=== PATIENT | male | born 1950 | race Caucasian/White ===

== ENCOUNTER 2016-02-17 13:05 | Emergency (ER) | payer OTHER, MEDICARE ==
[2016-02-17] VITALS (8 sets, daily range): BP systolic 135–164; BP diastolic 53–93; PULSE 40–94; TEMP 36.5; O2SAT 97–99; Ht 182.9 cm; Wt 83.0 kg
[~2016-02-17] VITALS: Ht 182.9 cm; Wt 83.0 kg
[~2016-02-17 13:05] MED LIST: ACET-1138 PO; ASCA500 PO; ASPI81TA28 PO; B-COCAP2 PO; CHOL1000 PO; CLB200 PO; CLC100 PO; IPRA1AER2 INH; LSN5 PO; MULT-506 PO; OMEG10007 PO; PRT40 PO; PRVHFAIN INH; RXC5 PO; SPRIN/30 INH; TPRSR25 PO
[2016-02-17] MEDS ORDERED: FENTANYL CITRATE INJ 50 MCG/1 ML 2 ML VIAL IV STA ×3 (13:18→14:55)
[2016-02-17] MEDS ORDERED: SODIUM CHLORIDE 0.9% 500ML 500 ML IV STA (13:19)
--- NOTE | 2016-02-17 14:37 | DIAGNOSTIC IMAGING REPORT ---
SINGLE VIEW CHEST CLINICAL HISTORY: Left hip deformity. Sedation. FINDINGS: An AP, portable, upright chest radiograph is compared to study dated 02/03/2016. The heart is enlarged and there is atherosclerotic calcification of the thoracic aorta. There is mild congestion of the central pulmonary vessels. Apical scarring is observed. Emphysema and chronic interstitial thickening is unchanged. Mild diffuse patchy airspace opacities are identified. No large pleural effusion or pneumothorax is seen. The skeletal structures are osteopenic. The bony thorax is grossly intact. IMPRESSION: 1. Cardiomegaly. There is congestion of the central pulmonary vessels. Correlate clinically for evidence of congestive failure. 2. There are mild diffuse patchy airspace opacities. Correlate clinically for evidence of an infectious or inflammatory pneumonitis versus mild interstitial edema. Electronically signed by: Jaylen Reeder M.D. 02/17/2016 2:35 PM Dictated Date/Time: 02/17/2016 2:32 PM
--- NOTE | 2016-02-17 14:41 | DIAGNOSTIC IMAGING REPORT ---
SINGLE VIEW LEFT HIP CLINICAL HISTORY: Left hip deformity. FINDINGS: An AP view of the left hip is compared to study dated 02/02/2016. The skeletal structures are osteopenic. No fracture is identified. A left hip arthroplasty is in place. There is superior dislocation of the femoral component of the arthroplasty. No periprosthetic lucency is identified. Sclerotic change is noted in the left sacroiliac joint. Overlying soft tissue edema is present in the thigh. IMPRESSION: 1. There is superior dislocation of the femoral component of the left hip arthroplasty with overlying soft tissue edema. 2. No fracture is seen. Electronically signed by: Jaylen Reeder M.D. 02/17/2016 2:39 PM Dictated Date/Time: 02/17/2016 2:37 PM
[2016-02-17] MEDS ORDERED: PROPOFOL IV EMULSION 10 MG/ML 20 ML VIAL IV ONE (14:53)
--- NOTE | 2016-02-17 15:35 | DIAGNOSTIC IMAGING REPORT ---
LEFT HIP UNILATERAL 2 VIEWS CLINICAL HISTORY: left hip dislocation COMPARISON: 02/17/2016 DISCUSSION: There is a total left hip arthroplasty. There is been interval reduction of the previously identified dislocation. There are no acute fractures. IMPRESSION: Interval reduction of the previously identified dislocation Electronically signed by: Berhane Esparza M.D. 02/17/2016 3:33 PM Dictated Date/Time: 02/17/2016 3:32 PM
[2016-02-17] MEDS ORDERED: FUROSEMIDE 40 MG/4 ML VIAL IV STA (16:00)
[2016-02-17 16:08] LABS: BASO % 0.1 %; BASO ABS # 0.02 K/uL (0-0.2); COMPLETE YES; EOS % 0.4 %; IG% 0.7 %; LYMPH % 7.4 %; LYMPH ABS # 1.09 K/uL (1.2-3.4); MEAN CELL VOLUME 91.6 fL (80-100); MEAN CORPUSCULAR HEMOGLOBIN 31.6 pg (25-34); MEAN CORPUSCULAR HGB CONC 34.4 g/dl (32-36); MEAN PLATELET VOLUME 10.1 fL (7.4-10.4); MONO % 5.3 %; NEUT % 86.1 %; PLATELET COUNT 355 K/uL (130-400); RED BLOOD COUNT 3.93 M/uL (4.7-6.1); WHITE BLOOD COUNT 14.64 K/uL (4.8-10.8)
--- NOTE | 2016-02-17 16:09 | EMERGENCY ROOM VISIT NOTE ---
ED Visit Note Procedural Sedation Indication hip dislocation Total time: 2867-1765, 17 minutes. Written consent was obtained after the risks and benefits were explained to the patient, including, but not limited to aspiration, allergic reaction, breathing difficulties, cardiac complications, vomiting, pain, event recall, bleeding, and /or infection. Pre-sedation examination and paperwork completed. The patient was on 100% oxygen via NRB prior to the procedure. Continuous end tidal CO2 monitoring, pulse oximetry, and cardiac monitoring were utilized. Suction, airway equipment, medications, respiratory equipment, and appropriate personnel were prepared prior to the initiation of the procedure. A time out was taken. Sedation was achieved utilizing a total of 150 mg of propofol After I observed the patient had reached the appropriate level of sedation the main procedure was performed without complication. Sedation was discontinued and the monitoring continued. The patient recovered quickly from the effects of the medication without complication or adverse event.
[2016-02-17 16:24] LABS: BUN/CREATININE RATIO 34.5 (10-20); CALCIUM 8.7 mg/dl (8.5-10.1); CREATININE 0.88 mg/dl (0.60-1.40); MAGNESIUM 2.2 mg/dl (1.8-2.4); POTASSIUM 4.2 mmol/L (3.5-5.1)
--- NOTE | 2016-02-17 17:58 | EMERGENCY ROOM VISIT NOTE ---
History Report prepared by Arnold: Rachel Ellis Under the Supervision of: Dr. Derek Vigil D.O. First contact with patient: 13:12 Chief Complaint: HIP PAIN Stated Complaint: HIP PAIN/ POSSIBLE DISLOCATION History of Present Illness The patient is a 65 year old male who presents to the Emergency Room with complaints of persistent left hip pain that began prior to arrival. He currently rates his discomfort as a 10/10 in severity. The patient states that he had a hip replacement done on 02/01. He states that this morning he was showering and he bent too far causing his left hip to dislocate. The patient states that his last food was about three hours ago. He denies hitting his head during the fall. The patient denies any numbness in his left hip, and only notes persistent pain. He states that the pain medications that he was given prior to coming to the emergency department did not alleviate his discomfort at all. Source of History: patient Onset: prior to arrival Position: other (left hip) Symptom Intensity: 10/10 Timing: other (persistent) Associated Symptoms: No numbness Note: Associated Symptoms: recent left hip replacement. Review of Systems See HPI for pertinent positives & negatives. A total of 10 systems reviewed and were otherwise negative. Past Medical & Surgical Medical Problems: (1) Avascular necrosis of bone of left hip (2) Chest pain (3) Diverticulitis (4) Rupture of bowel (5) Shortness of breath Surgical Problems: (1) Hx of cholecystectomy (2) Hx of rotator cuff surgery Family History Cancer Diabetes mellitus FH: heart disease Hypertension Stroke Social History Smoking Status: Unknown if Ever Smoked Alcohol Use: none Housing Status: lives with friends Occupation Status: employed Current/Historical Medications Scheduled Acetaminophen (Tylenol Extra Strength), 1,000 MG PO Q8H Albuterol (Ventolin Hfa), 2 PUFF INH Q4 Ascorbic Acid (Vitamin C), 1 TAB PO QAM Aspirin (Aspirin Ec), 81 MG PO BID Celecoxib (Celebrex), 200 MG PO BID Cholecalciferol (Vitamin D3), 1 TAB PO QAM Fish Oil ([place]-3), 1 CAP PO QAM Lisinopril (Lisinopril), 5 MG PO QAM Metoprolol Succinate (Metoprolol Succinate ER), 25 MG PO PM Multivitamin (Multivitamin), 1 TAB PO QAM Pantoprazole (Pantoprazole Sodium), 40 MG PO QAM Tiotropium Redig (Spiriva Handihaler), 1 PUFF INH QAM Vitamin B Cmplx/Vitc/Folic Ac (Nephrocaps), 1 CAP PO QAM Scheduled PRN Docusate Sodium (Docusate Sodium), 100 MG PO BID PRN for Constipation Ipratropium-Albuterol (Combivent Respimat), 1 PUFFS INH QID PRN for Wheezing Oxycodone HCl (Oxycodone HCl), 5-10 MG PO Q4H PRN for Pain Allergies Coded Allergies: No Known Allergies (Unverified , 02/02/16) Physical Exam Vital Signs Date Time Temp Pulse Resp B/P Pulse Ox O2 Delivery O2 Flow Rate FiO2 02/17/16 16:15 68 18 149/64 98 Room Air 02/17/16 15:47 73 18 145/67 97 Nasal Cannula 2.0 02/17/16 15:35 93 18 149/75 98 Nasal Cannula 2.0 02/17/16 15:29 89 18 135/79 98 Nasal Cannula 2.0 02/17/16 15:15 40 12 138/93 99 Non-Rebreather 10.0 02/17/16 15:10 96 02/17/16 15:05 94 18 147/62 02/17/16 15:05 60 146/53 98 Non-Rebreather 02/17/16 14:59 94 24 164/78 98 Nasal Cannula 2.0 02/17/16 13:51 95 Nasal Cannula 2.0 02/17/16 13:43 82 18 150/81 93 Room Air 02/17/16 13:08 36.5 83 18 168/98 97 Room Air Physical Exam GENERAL: Laying in bed, in moderate distress, holding left hip. EF of 35% HEAD: Normocephalic, atraumatic. EYE EXAM: normal conjunctiva. OROPHARYNX: no exudate, no erythema, lips, buccal mucosa, and tongue normal and mucous membranes are moist NECK: supple, no nuchal rigidity, no adenopathy, non-tender LUNGS: Clear to auscultation. Normal chest wall mechanics HEART: no murmurs, S1 normal and S2 normal ABDOMEN: Old abdominal incision in the umbilical region. abdomen soft, non- tender, normo-active bowel sounds, no masses, no rebound or guarding. BACK: Back is symmetrical on inspection and there is no deformity, no midline tenderness, no CVA tenderness. SKIN: no rashes and no bruising UPPER EXTREMITIES: upper extremities are grossly normal. PELVIS: Incisions are clean dry and intact, acute pain on palpation of left hip. DP 2/4, gross sensations intact. Able to planar and dorsiflex left foot. Medical Decision & Procedures ER Provider Diagnostic Interpretation: Xray results per the radiologist and my interpretation. Other results have been interpreted by the radiologist and reviewed by me. SINGLE VIEW CHEST CLINICAL HISTORY: Left hip deformity. Sedation. FINDINGS: An AP, portable, upright chest radiograph is compared to study dated 02/03/2016. The heart is enlarged and there is atherosclerotic calcification of the thoracic aorta. There is mild congestion of the central pulmonary vessels. Apical scarring is observed. Emphysema and chronic interstitial thickening is unchanged. Mild diffuse patchy airspace opacities are identified. No large pleural effusion or pneumothorax is seen. The skeletal structures are osteopenic. The bony thorax is grossly intact. IMPRESSION: 1. Cardiomegaly. There is congestion of the central pulmonary vessels. Correlate clinically for evidence of congestive failure. 2. There are mild diffuse patchy airspace opacities. Correlate clinically for evidence of an infectious or inflammatory pneumonitis versus mild interstitial edema. Electronically signed by: Jaylen Reeder M.D. 02/17/2016 2:35 PM Dictated Date/Time: 02/17/2016 2:32 PM SINGLE VIEW LEFT HIP CLINICAL HISTORY: Left hip deformity. FINDINGS: An AP view of the left hip is compared to study dated 02/02/2016. The skeletal structures are osteopenic. No fracture is identified. A left hip arthroplasty is in place. There is superior dislocation of the femoral component of the arthroplasty. No periprosthetic lucency is identified. Sclerotic change is noted in the left sacroiliac joint. Overlying soft tissue edema is present in the thigh. IMPRESSION: 1. There is superior dislocation of the femoral component of the left hip arthroplasty with overlying soft tissue edema. 2. No fracture is seen. Electronically signed by: Jaylen Reeder M.D. 02/17/2016 2:39 PM Dictated Date/Time: 02/17/2016 2:37 PM LEFT HIP UNILATERAL 2 VIEWS CLINICAL HISTORY: left hip dislocation COMPARISON: 02/17/2016 DISCUSSION: There is a total left hip arthroplasty. There is been interval reduction of the previously identified dislocation. There are no acute fractures. IMPRESSION: Interval reduction of the previously identified dislocation Electronically signed by: Berhane Esparza M.D. 02/17/2016 3:33 PM Dictated Date/Time: 02/17/2016 3:32 PM Laboratory Results 02/17/16 15:55 Red Blood Count 3.93, Mean Corpuscular Volume 91.6, Mean Corpuscular Hemoglobin 31.6, Mean Corpuscular Hemoglobin Concent 34.4, Mean Platelet Volume 10.1, Neutrophils (%) (Auto) 86.1, Lymphocytes (%) (Auto) 7.4, Monocytes (%) (Auto) 5.3, Eosinophils (%) (Auto) 0.4, Basophils (%) (Auto) 0.1, Neutrophils # (Auto) 12.60, Lymphocytes # (Auto) 1.09, Monocytes # (Auto) 0.77, Eosinophils # (Auto) 0.06, Basophils # (Auto) 0.02 02/17/16 15:55 Test 02/17/16 15:55 White Blood Count 14.64 K/uL (4.8-10.8) Red Blood Count 3.93 M/uL (4.7-6.1) Hemoglobin 12.4 g/dL (14.0-18.0) Hematocrit 36.0 % (42-52) Mean Corpuscular Volume 91.6 fL (80-100) Mean Corpuscular Hemoglobin 31.6 pg (25-34) Mean Corpuscular Hemoglobin Concent 34.4 g/dl (32-36) Platelet Count 355 K/uL (130-400) Mean Platelet Volume 10.1 fL (7.4-10.4) Neutrophils (%) (Auto) 86.1 % Lymphocytes (%) (Auto) 7.4 % Monocytes (%) (Auto) 5.3 % Eosinophils (%) (Auto) 0.4 % Basophils (%) (Auto) 0.1 % Neutrophils # (Auto) 12.60 K/uL (1.4-6.5) Lymphocytes # (Auto) 1.09 K/uL (1.2-3.4) Monocytes # (Auto) 0.77 K/uL (0.11-0.59) Eosinophils # (Auto) 0.06 K/uL (0-0.5) Basophils # (Auto) 0.02 K/uL (0-0.2) RDW Standard Deviation 50.8 fL (36.4-46.3) RDW Coefficient of Variation 15.1 % (11.5-14.5) Immature Granulocyte % (Auto) 0.7 % Immature Granulocyte # (Auto) 0.10 K/uL (0.00-0.02) Anion Gap 10.0 mmol/L (3-11) Est Creatinine Clear Calc Drug Dose 91.9 ml/min Estimated GFR () 104.5 Estimated GFR (Non- 90.1 BUN/Creatinine Ratio 34.5 (10-20) Calcium Level 8.7 mg/dl (8.5-10.1) Magnesium Level 2.2 mg/dl (1.8-2.4) Laboratory results per my review. Medications Administered Medications (Trade) Dose Ordered Sig/Zeferino Route Start Time Stop Time Status Last Admin Dose Admin Fentanyl Citrate 100 mcg 100 mcg NOW STAT IV 02/17/16 13:18 02/17/16 13:19 DC 02/17/16 13:21 100 MCG Sodium Chloride (Nss 500ml) 500 ml @ 999 mls/hr Q31M STAT IV 02/17/16 13:19 02/17/16 13:49 DC 02/17/16 13:23 999 MLS/HR Fentanyl Citrate (Fentanyl Inj) 50 mcg ONE STAT IV 02/17/16 13:36 02/17/16 13:38 DC 02/17/16 13:43 50 MCG Fentanyl Citrate (Fentanyl Inj) 100 mcg NOW STAT IV 02/17/16 14:55 02/17/16 14:56 DC 02/17/16 15:43 100 MCG Furosemide (Lasix Inj) 40 mg NOW STAT IV 02/17/16 16:00 02/17/16 16:01 DC 02/17/16 16:15 40 MG Procedure Hip dislocation reduction Indication: left hip dislocation Verbal consent obtained. Risks and benefits were explained with the usual customary discussion. A time out was taken. Neurovascular examination before the procedure revealed intact. The left hip prosthetic dislocation was reduced after discussion with Dr. Bo, Orthopedics. Patient was placed in semi- supine position, hip was flexed to 90 degrees with knee placed in popliteal fossa, gentle upward traction was applied. Hip was easily reduced without complication. Neurovascular examination after the procedure revealed intact and gross sensations. The patient had significant pain relief and tolerated the procedure well. ECG Indication: other (bigeminy) Rate (beats per minute): 96 Rhythm: sinus rhythm Findings: 1st degree AV block, LBBB, PVC (intermittent) ED Course ED COURSE: Vital signs were reviewed and showed hypertensive The patients medical record was reviewed The above diagnostic studies were performed and reviewed. ED treatments and interventions as stated above. 1314: The patient was evaluated in room C9. A complete history and physical examination was performed. 1318: Ordered Fentanyl Inj 100 mcg IV, Sodium Chloride 500 ml @ 999 mls/hr IV. 1336: I reevaluated the patient and he is requesting more pain medications, noting that the previous pain medications helped slightly. Ordered Fentanyl Citrate 50 mcg IV. 1355: I discussed the patients case with Ankush Baxter PA-C Orthopedics. He said call back once his x-ray reports are back. 1429: I rediscussed the patients case with Ankush Baxter Orthopedics. Going to come help with reduction of the hip. 1433: I reevaluated the patient and updated him on the plan. He is going to be moved to room A1 to have his hip reduced. 1437: I discussed the patients case with Dr. Bo, Orthopedics. He said that he can be here in an hour to an hour and a half. 1453: Ordered Propofol 200 mg IV. 1455: Ordered Fentanyl Citrate 100 mcg IV. 1459: The patient signed consent for the conscious sedation. 1503: The patient's left hip was reduced at this time. See my procedure note for further detail. See Dr. Kaye's note for note regarding the sedation. 1549: I reevaluated the patient at this time. 1557: I discussed the patients case with Dr. Diaz, Cardiology. He evaluated the patient during the patients last admission at the end of January. He knows the patient very well and states that with his heart failure and bigeminy , we should check is magnesium and potassium and if abnormal repeat. He also said to give the patient extra Lasix and increase his Lasix. 1600: Ordered Lasix Inj 40 mg IV. 1602: I reevaluated the patient at this time and he is resting. 1710: Upon reevaluation, the patient is resting comfortably.I discussed my findings with the patient and he understands and agrees with the treatment plan. Based on the patients age, coexisting illnesses, exam and lab findings the decision to treat as an outpatient was made. The patient remained stable while under my care. The patient appeared well at the time of discharge. Medical Decision Differential diagnosis: Etiologies such as fracture, dislocation, neurovascular compromise, compartment syndrome, soft tissue injury, as well as others were entertained. Patient is a 65-year-old male with a past medical history of recent left hip replacement and CHF who presents the ER for severe pain in his left hip. He notes that he bent down and felt pop in his left hip. On exam he is neurovascular intact. X-ray supports a clear dislocation. I discussed this with his surgeon Dr. Thomas and he recommended reduction if possible at this time or he will be down an hour and a half. Patient was given multiple doses of IV fentanyl. Patient was sedated following explained the risk and benefits of this by Dr. Kaye and I reduced his hip. He tolerated the procedure well. On the monitor he did go into a bigeminy for a short period of time. EKG she reports intermittent PVCs. I discussed this with his edger runner who he saw less than 2 weeks ago. Chest x-ray supports CHF and consequently we elected to give him a dose of IV Lasix. His mag and potassium were normal. He was discharged to follow-up and increase his Lasix over the next 2 days until he sees cardiology on Saturday. He will continue his hip precautions. He is instructed not drive, work, operate heavy machinery for the next 12 hours. Again the patient had no chest pain or shortness of breath. He tolerated the procedure well. He was discharged follow-up with cardiogenic PCP. Discussed with Pt concerning signs and symptoms to watch out for. Pt was instructed to follow up with their PCP and discussed with the patient their option to return to the ED at anytime for persistent or worsening symptoms. The appropriate anticipatory guidance and out-patient management, including indications for return to the emergency department, were explained at length to the patient and understood. Consults Time Called: 1325 Consulting Physician: Ankush Baxter PA-C - Orthopedics Returned Call: [phone] I discussed the patients case with Ankush Baxter PA-C Orthopedics. He said call back once his x-ray reports are back. Impression Primary Impression: Hip dislocation, left Additional Impression: CHF (congestive heart failure) Scribe Attestation The scribe's documentation has been prepared under my direction and personally reviewed by me in its entirety. I confirm that the note above accurately reflects all work, treatment, procedures, and medical decision making performed by me. Departure Information Dispostion Home / Self-Care Referrals (PCP) Forms HOME CARE DOCUMENTATION FORM, IMPORTANT VISIT INFORMATION, WORK / SCHOOL INSTRUCTIONS Patient Instructions A Signature Page, ED CHF General, ED Dislocation Hip Traumatic Redu, My [facility] Additional Instructions Please follow up with your primary care doctor or if you are a student [facility] with in the next 24 hours. Any worsening of your symptoms, please return to the ED immediately. Please increase your Lasix to 40 mg daily for the next 2 days until you've see cardiology on Saturday. Any chest pain or shortness of breath please return to the ER. Please do not drive, work, operate heavy machinery for the next 12 hours as you' re given narcotics for sedation. Please follow your previous discharge instructions from the hospital for range of motion.
[2016-02-26] MEDS ORDERED: TPRSR/50 PO (09:34)
[2016-02-29] MEDS ORDERED: CLB/200 PO (16:37)
[2016-02-29] MEDS ORDERED: FURO-85 PO (16:37)
[2016-02-29] MEDS ORDERED: METO50TA7 PO (16:37)
[2016-02-29] MEDS ORDERED: IPRA1AER2 INH (16:37)
[2016-02-29] MEDS ORDERED: [UNRECOGNIZED DRUG - CODE] PO (16:37)
[2016-02-29] MEDS ORDERED: CHOL1000 PO (16:37)
[2016-02-29] MEDS ORDERED: OXYC-609 PO (16:37)
[2016-03-01] MEDS ORDERED: LPT40 PO (14:33)
== END 2016-02-17 18:00 | disposition home or self-care (01) ==
LOC: EDBD 13:05 → C.EDC 13:06 → C.EDB 18:00
DX: T84.021A Dislocation of internal left hip prosthesis, initial encounter (principal); X50.1XXA Overexertion from prolonged static or awkward postures, initial encounter; Y92.012 Bathroom of single-family (private) house as the place of occurrence of the external cause; I49.3 Ventricular premature depolarization; I50.9 Heart failure, unspecified; K57.92 Diverticulitis of intestine, part unspecified, without perforation or abscess without bleeding; Z80.9 Family history of malignant neoplasm, unspecified; Z83.3 Family history of diabetes mellitus; Z82.49 Family history of ischemic heart disease and other diseases of the circulatory system

== ENCOUNTER → 2016-03-01 | Day surgery (SDC) | payer OTHER, MEDICARE ==
[~2016-03-01] VITALS: Ht 182.9 cm; Wt 68.0 kg
[~2016-03-01] MED LIST changes: +ASPIRIN 81 MG CHEW ONE; +CLB/200 PO; -CLB200 PO; +FENTANYL CITRATE INJ 50 MCG/1 ML 2 ML VIAL ONE; +FURO-85 PO; +HEPARIN SOD (PORCINE) 1000 UNIT/ML 10 ML VIAL ONE; +LPT40 PO; +METO50TA7 PO; +MIDAZOLAM HCL 1 MG/ML 2ML VIAL ONE; -MULT-506 PO; +NITROGLYCERIN/D5W 100MCG/ML 20ML SYR ONE; +NiCARDipine HCL INJ 2.5 MG/ML 10 ML AMP ONE; +OXYC-609 PO; -RXC5 PO; -TPRSR25 PO; +[UNRECOGNIZED DRUG - CODE] PO
[2016-03-01 08:45] VITALS: Ht 182.9 cm; Wt 68.0 kg
[2016-03-01 09:12] VITALS: BP 127/57; PULSE 79; TEMP 36.7; O2SAT 99
[2016-03-01 14:22] LABS: ISTAT ARTERIAL BLOOD GAS HCO3 19 meq/L (19-24); ISTAT ARTERIAL BLOOD GAS PCO2 31 mmHg (35-46); ISTAT ARTERIAL BLOOD GAS PO2 90 mmHg (80-95); ISTAT ARTERIAL BLOOD GAS pH 7.41 (7.35-7.45); ISTAT CARBON DIOXIDE 20 mEq/l (24-31)
[2016-03-01 14:22] LABS: ISTAT ARTERIAL BLOOD GAS HCO3 21 meq/L (19-24); ISTAT ARTERIAL BLOOD GAS PCO2 39 mmHg (35-46); ISTAT ARTERIAL BLOOD GAS PO2 38 mmHg (80-95); ISTAT ARTERIAL BLOOD GAS pH 7.35 (7.35-7.45); ISTAT CARBON DIOXIDE 23 mEq/l (24-31)
--- NOTE | 2016-03-01 14:28 | Procedure Note ---
Pre-Mod Sedation Assessment General Date of Moderate Sedation: Mar 01, 2016. Vital Signs: Vital Signs Past 12 Hours Date Time Temp Pulse Resp B/P Pulse Ox O2 Delivery O2 Flow Rate FiO2 03/01/16 14:20 76 18 138/79 Room Air 03/01/16 14:15 Room Air 03/01/16 14:10 71 16 135/84 100 Room Air 03/01/16 09:12 36.7 79 18 127/57 99 Room Air Review Cardiovascular: regular rate, rhythm, no edema, no gallop Abdomen: normal bowel sounds, non tender, soft Lungs: chest non-tender, lungs clear, normal breath sounds Airway Class: II Pre-Sedation Airway Assessment Oral Cavity: Dentures Able to Visualize Vocal Cords: No Short Thick Neck: No Hx of Sleep Apnea: No Smoking Status: Current Some Day Smoker Mallampati Classification: Class III ASA Classification: Class III Procedure Planning Contraindications-for Mod Sed: None Yes Notes The planned sedation has been discussed with the patient and consent obtained. I have identified the patient, determined the appropriateness of sedation and have assessed the patient immediately prior to the procedure. All medicine(s) and interventions are by my order.
--- NOTE | 2016-03-01 14:29 | Procedure Note ---
Post-Mod Sedation Assessment General Date of Moderate Sedation Mar 01, 2016. Vital Signs: Vital Signs Past 12 Hours Date Time Temp Pulse Resp B/P Pulse Ox O2 Delivery O2 Flow Rate FiO2 03/01/16 14:20 76 18 138/79 Room Air 03/01/16 14:15 Room Air 03/01/16 14:10 71 16 135/84 100 Room Air 03/01/16 09:12 36.7 79 18 127/57 99 Room Air Review - Discharge Criteria Vital Signs Stable: Yes Alert/Oriented/Conversant: Yes Returned to Baseline Mental St: Yes Nausea Absent/Minimal: Yes Pain/Discomfort/Absent/Minimal: Yes Normal/Baseline Respirations: Yes Active Bleeding?: No Pt Received D/C Instructions: N/A Prescriptions Given: None Specific Proced. D/C Criteria Distal Pulses Present (Cardiac: Yes Groin site assessed-Card Cath: Yes Voided Prior To Discharge: N/A Discharged Patients Adult Escort/Transportation: Yes
--- NOTE | 2016-03-01 14:38 | Discharge Instructions ---
Discharge Instructions Procedure Procedure Date: Mar 01, 2016. Reason for Visit: *Dr James Caicedo To Do* Abnormal Chest Pain. Discharge Discharge Date: Mar 01, 2016. Discharge Diagnosis: Ischemic cardiomyopathy Last Recorded Wt (Kilograms): 68 Anesthesia Post Anesthesia Instructions: With moderate Sedation: * Do not drive today. * Do not make important decisions or sign legal documents today. * Call surgeon for: 1. Temperature elevations greater than 101 degrees F. 2. Uncontrollable pain. 3. Excessive bleeding. 4. Persistent nausea and vomiting. 5. Medication intolerance (nausea, vomiting or rash). * For nausea and vomiting use only clear liquids such as: tea, soda, bouillon until nausea subsides, then gradually increase diet as tolerated. * If you have any concerns or questions, call your surgeon's office. If physician is unavailable and it is an emergency, call 911 or go to the nearest emergency room. Instructions Activity Recommendations: limitations as noted below Recommended Home Diet: resume previous diet, low cholesterol Allergies: Coded Allergies: No Known Allergies (Unverified , 02/26/16) Follow Up Additional Instructions: ACTIVITY RECOMMENDATIONS: It is common to feel weak and fatigue for a few days. * Do not drive or operate any motorized equipment for the next day. * Limit stair usage (2 or 3 trips a day only) for the next 2 days. * Do not lift anything heavier than 10 pounds for the next three days. * Do not engage in vigorous exercise or any sports for the next five days. * You may shower the day after your procedure, but do not immerse the area for three days. Cleanse the site gently with soap and water. SPECIAL CARE INSTRUCTIONS: * You may replace the pressure dressing or band-aid the morning after the procedure. * After your procedure, it is normal to have a small bruise or small lump at the site. Examine your site daily for any change in the bruise or lump, redness, swelling, drainage or numbness. Notify your doctor if any change. BLEEDING: * If there is a small amount of bleeding at the site, lie down and apply firm pressure with a clean cloth for ten minutes. When the bleeding stops, lie quietly keeping the procedure limb straight for six hours. Notify your doctor as soon as possible. * If the bleeding does not stop after ten minutes or if there is a large amount of bleeding or spurting, call 911 immediately. Continue to lie down and hold firm pressure until help arrives. SKIN IRRITATION: * You may experience some redness and/or swelling in the area where radiation was administered. If any skin irritation occurs, please contact your family physician. FOLLOW UP VISIT: Keep any scheduled doctor appointments. Follow-up with: Dr. Fischer and CT surgery at [facility] Recommendations: Call your doctor if: * Temperature above 101 degrees * Pain not relieved by pain medicine ordered * There is increased drainage or redness from any incision * You have any unanswered questions or concerns. Your Doctors Instructions noted above were prepared by provider Amor Caicedo. Patient Signature Section: Patient Instructions Signature Page Wesley Patel Patient (or Guardian) Signature/Date: I have read and understand the instructions given to me by my caregivers. Caregiver/RN/Doctor Signature/Date: The above-named patient and/or guardian has received patient instructions on this date. + Original Patient Signature Page (only) stays with chart. Please make copy for patient.
--- NOTE | 2016-03-01 15:09 | Cardiac Catheterization ---
Procedure Note Procedure Date Mar 01, 2016. Pre-Procedure Diagnosis Cardiomyopathy AUC Score 7 Post-Procedure Diagnosis Severe CAD, Normal Intracardiac Pressures Procedure(s) Performed Coronary Angiography, Left Heart Cath, Right Heart Cath Signs And Displays Sales Representative Dr. Caicedo Manager Database Administration(s) Joan Estimated Blood Loss 32 Medication(s) Fentanyl, Heparin, Nitroglycerin, Versed, Lidocaine 1% Summary of Findings Indication: Cardiomyopathy Access: 6Fr Right Brachial vein, 6Fr Slender Right radial artery Catheters: 6Fr swan, Roma, JL3.5, Pigtail Findings: LM - Mildly calcified with ostial 60% stenosis with pressure dampening with catheter engagement LAD - Moderate sized vessel, mild proximal disease, 90% focal stenosis after take-off of large 2nd diagonal, distal LAD small with luminal irregularities to the apex. Small 1st diagonal with 70-80% stenosis. Large 2nd diagonal with mild luminal irregularities. Circumflex - Moderate sized vessel, greatest caliber OM (OM2) with 90% ostial stenosis. Remainder of OMs with luminal irregularities. RCA - Dominant, 50% ostial stenosis with pressure dampening with catheter engagement. Mid RCA mildly calcified with 50-60% diffuse disease. Mild distal RCA disease. Ostial PDA 50-60% focal stenosis RA 4 RV 32/5 PCW 13 PA 32/10/ Ao LVEDP - 20 RAFAELA/CI: 4.8/2.6 TCO/CI: 6.5/3.4 PaSat 70 Arterial Closure: TR Band Summary: 1. Severe multivessel coronary artery disease with ostial left main involvement - 60% ostial left main - 90% mid LAD - 90% ostial OM2 - 50-60% ostial, mid RCA, ostial PDA 2. Normal cardiac output and intracardiac filling pressures. Recommendations: CT surgery evaluation for CABG To follow-up with his sap technical architect Dr. Fischer tomorrow Continue ASA/Beta-pratima and JEREMY Start high dose statin. Hemodynamics Rest Ao: Final Ao: 146/72/102 LV: 139/20 Recommendations CABG Specimens None Radiation Exposure (mGy) 463 Contrast (mls) 75 Fluids (cc crystalloids) 142 Drains none Anesthesia moderate Procedural Complication(s) None Disposition Skin Grader Holding/Recovery ACC Data Cardiac Status Clinical evaluation leading to the procedure CAD Presntation: No Sxs, no angina Anginal Classification: No symptoms Heart Failure: No, NYHA Class: CCS III Cardiogenic Shock w/in 24Hrs: No Cardiac Arrest w/in 24Hrs: No Imaging studies past 6 months: Yes Stress studies past 6 months: No Standard Exercise Stress Test: No Stress Echocardiogram: No Stress Testing w/SPECT MPI: No Cardiac CTA: No Coronary Anatomy Dominant: Right Left Main (% Stenosis): Ostial (60) LAD (% Stenosis): Mid (90) OM2 (% Stenosis): Ostial (90) RCA (% Stenosis): Ostial (50), Mid (50) R PDA (% Stenosis): Ostial (50) Diagnostic Physician's Name: James Caicedo MD Status: Elective Closure Device Percutaneous Entry Location: Radial Closure Device: Radial Band Recommendations: CABG Intraprocedure Events Significant Dissection: No Perforation: No
[2016-03-01 16:30] VITALS: BP 128/62; PULSE 83; O2SAT 96
== END | disposition home or self-care (01) ==
LOC: C.CATH 08:31
PROVIDERS: ATTEND Internal Medicine Interventional Cardiology
DX: I42.8 Other cardiomyopathies (principal); I44.7 Left bundle-branch block, unspecified; E11.9 Type 2 diabetes mellitus without complications; J43.9 Emphysema, unspecified; Z96.649 Presence of unspecified artificial hip joint; Z98.890 Other specified postprocedural states

== ENCOUNTER → 2016-11-26 | Outpatient (CLI) | payer OTHER, MEDICARE ==
[~2016-11-26] MED LIST changes: -ASPIRIN 81 MG CHEW ONE; -CLB/200 PO; -CLC100 PO; -FENTANYL CITRATE INJ 50 MCG/1 ML 2 ML VIAL ONE; -HEPARIN SOD (PORCINE) 1000 UNIT/ML 10 ML VIAL ONE; -MIDAZOLAM HCL 1 MG/ML 2ML VIAL ONE; -NITROGLYCERIN/D5W 100MCG/ML 20ML SYR ONE; -NiCARDipine HCL INJ 2.5 MG/ML 10 ML AMP ONE
--- NOTE | 2016-11-26 08:56 | DIAGNOSTIC IMAGING REPORT ---
ULTRASOUND EXAM AAA SCREEN HISTORY: Abdominal aortic aneurysm SCREENING COMPARISON STUDY: None. FINDINGS: Normal caliber abdominal aorta measuring up to 1.9 cm at the mid aspect. Bilateral common iliac arteries are also normal in caliber. Mild calcified plaque. IMPRESSION: Normal caliber abdominal aorta. Electronically signed by: Umberto Miguel M.D. 11/26/2016 8:54 AM Dictated Date/Time: 11/26/2016 8:53 AM
== END | disposition home or self-care (01) ==
LOC: C.ULTRBC 08:03
PROVIDERS: ATTEND Family Medicine
DX: Z13.6 Encounter for screening for cardiovascular disorders (principal)

== ENCOUNTER → 2016-11-28 | Outpatient (CLI) | payer OTHER, MEDICARE ==
--- NOTE | 2016-11-28 14:20 | DIAGNOSTIC IMAGING REPORT ---
CT LUNG SCREENING, LOW DOSE WITH COMPUTER-AIDED DETECTION (CAD) CLINICAL HISTORY: Current smoker. Asymptomatic. Screening CT. COMPARISON STUDY: Chest radiograph February 17, [address] of the abdomen and pelvis April 09, 2015. CT DOSE: 88.70 mGy.cm TECHNIQUE: Low-dose helical CT was acquired without intravenous contrast from lung apices to bases and reconstructed at 2.5 mm every 2 mm. CAD was utilized for this study. A dose lowering technique was utilized adhering to the principles of ALARA. FINDINGS: No enlarged axillary, mediastinal or hilar lymph nodes are present. The heart is mildly enlarged. There is extensive coronary artery calcification. There are median sternotomy wires and clips from bypass grafting. No suspicious osseous lesions are identified within the bony thorax. Visualized portions of the upper abdomen are unremarkable. Moderate emphysema is present. No consolidation is identified. There is no pneumothorax or pleural effusion. Multiple small pulmonary nodules are noted. Note is made of a 7 mm solid right middle lobe nodule shown image 202 of 311. A 5 mm left lower lobe nodule is noted on image 252. A 6 mm right lower lobe subpleural nodule is noted on image 232. Numerous smaller nodules are also present. IMPRESSION: 1. Multiple solid pulmonary nodules, the largest of which is a 7 mm right middle lobe nodule. These nodules are probably benign but indeterminate. A follow-up chest CT in 6 months is recommended to ensure stability. 2. Moderate emphysema. 3. No acute intrathoracic findings. Nodule 1 Category: 3 Nodule 1 Status: Baseline Nodule 1 Description: Solid Nodule 1 Lesion ID: 6 Nodule 1 Slice Number: 55 Nodule 1 Volume (mm3): 175 Nodule 1 Major [place] mm: 6.9 Nodule 1 Minor [place] mm: 6.9 Nodule 2 Category: 3 Nodule 2 Status: Baseline Nodule 2 Description: Solid Nodule 2 Lesion ID: 2 Nodule 2 Slice Number: 41 Nodule 2 Volume (mm3): 117 Nodule 2 Major [place] mm: 8.1 Nodule 2 Minor [place] mm: 5.0 Nodule 3 Category: 2 Nodule 3 Status: Baseline Nodule 3 Description: Solid Nodule 3 Lesion ID: 1 Nodule 3 Slice Number: 30 Nodule 3 Volume (mm3): 29 Nodule 3 Major [place] mm: 3.3 Nodule 3 Minor [place] mm: 3.0 CAD FINDINGS: Overall Lung RADS Category: 3 Lung RADS Management Recommendation: Lung-RADS 3: Return for a diagnostic chest CT without contrast in 6 months. Lung RADS Follow Up Date: 2017-05-29 Lung RADS Nodule ID: 6 Electronically signed by: Americo Bill M.D. 11/28/2016 2:19 PM Dictated Date/Time: 11/28/2016 1:39 PM
== END | disposition home or self-care (01) ==
LOC: C.CTS 13:26
PROVIDERS: ATTEND Family Medicine
DX: J43.9 Emphysema, unspecified (principal); R91.8 Other nonspecific abnormal finding of lung field

== ENCOUNTER → 2017-06-17 | Outpatient (CLI) | payer OTHER, MEDICARE ==
[~2017-06-17] MED LIST changes: -ACET-1138 PO; -ASCA500 PO; +ASCO500T3 PO; +ASPCH81X PO; -ASPI81TA28 PO; -B-COCAP2 PO; +B-COTAB18 PO; -FURO-85 PO; +GLUCTAB7 PO; -IPRA1AER2 INH; +LPT/40 PO; -LPT40 PO; -LSN5 PO; +METO-217 PO; -METO50TA7 PO; +MULT-506 PO; -OXYC-609 PO; -PRT40 PO; -PRVHFAIN INH; -SPRIN/30 INH; -[UNRECOGNIZED DRUG - CODE] PO
--- NOTE | 2017-06-17 10:56 | DIAGNOSTIC IMAGING REPORT ---
ADDENDUM (CHEST) THORAX WITHOUT WITH COMPUTER-AIDED DETECTION (CAD) CLINICAL HISTORY: 66 years-old Male presenting with lung nodule, follow-up, history of smoking. CT DOSE (mGy.cm): The estimated cumulative dose is 446.04 mGy.cm. TECHNIQUE: Multidetector CT imaging of the chest was performed without the use of intravenous contrast. IV contrast: None. A dose lowering technique was used consistent with the principles of ALARA (as low as reasonably achievable). Additional postprocessing was performed on a separate [employer] workstation by the radiologist for computer-aided detection and 3-D volumetric segmentation of pulmonary nodules. COMPARISON: None. FINDINGS: Lockstitch Coat Joiner topogram: Median sternotomy wires. On soft tissue windows, normal thyroid. Bilateral gynecomastia suggested. No axillary, supraclavicular, or mediastinal lymphadenopathy. Evaluation of the erin limited without intravenous contrast. Atherosclerosis of the aorta. Normal heart size. Coronary artery calcification. Postsurgical changes of median sternotomy with coronary artery bypass grafting. Patency of the graft vessels cannot be assessed without contrast. No pericardial or pleural effusion. Cholecystectomy clips. Subcentimeter hypodensity in the liver likely hepatic cyst or hamartoma though indeterminate. Normal liver density. On lung windows, trace centrilobular and paraseptal emphysematous changes. Previously noted solid pulmonary nodules are unchanged including a 6 mm right middle lobe nodule (series 4 image 207), 6 mm subpleural right lower lobe nodule (series 4 image 228) disease, and 3 mm left lower lobe nodule (series 4 image 251). Solid elongated 5 mm nodule in the lingula (series 4 image 22), unchanged. No other nodule. Debris noted in the lower trachea. Mild bronchial wall thickening. On bone windows, normal osseous structures. CAD FINDINGS: Nodule 1 Category: 2 Nodule 1 Status: Growing Nodule 1 Description: Solid Nodule 1 Lesion ID: 2 Nodule 1 Slice Number: 119 Nodule 1 Volume (mm3): 146 Nodule 1 Major [place] mm: 11.9 Nodule 1 Minor [place] mm: 4.3 Nodule 2 Category: 2 Nodule 2 Status: Growing Nodule 2 Description: Solid Nodule 2 Lesion ID: 1 Nodule 2 Slice Number: 96 Nodule 2 Volume (mm3): 39 Nodule 2 Major [place] mm: 4.0 Nodule 2 Minor [place] mm: 2.9 Nodule 3 Category: 2 Nodule 3 Status: Shrinking Nodule 3 Description: Solid Nodule 3 Lesion ID: 6 Nodule 3 Slice Number: 140 Nodule 3 Volume (mm3): 35 Nodule 3 Major [place] mm: 7.6 Nodule 3 Minor [place] mm: 4.3 Nodule 4 Category: 2 Nodule 4 Status: Growing Nodule 4 Description: Solid Nodule 4 Lesion ID: 2 Nodule 4 Slice Number: 119 Nodule 4 Volume (mm3): 146 Nodule 4 Major [place] mm: 11.9 Nodule 4 Minor [place] mm: 4.3 Overall Lung RADS Category: 2 Lung RADS Management Recommendation: Continue annual lung cancer screening. Lung RADS Follow Up Date: 2018-06-17 Lung RADS Nodule ID: 2 IMPRESSION: 1. Stable multiple bilateral solid pulmonary nodules measuring up to 6 mm. Continue annual lung cancer screening. 2. Trace emphysema bronchial wall thickening, likely smoking related lung injury. Electronically signed by: Jerrod Valverde M.D. 06/18/2017 1:46 PM Dictated Date/Time: 06/18/2017 11:05 AM ORIGINAL REPORT (CHEST) THORAX WITHOUT CLINICAL HISTORY: 66 years-old Male presenting with lung nodule, 6 month follow-up. TECHNIQUE: Multidetector CT imaging of the chest was performed without the use of intravenous contrast. IV contrast: None. A dose lowering technique was used consistent with the principles of ALARA (as low as reasonably achievable). COMPARISON: 11/28/2016. CT DOSE (mGy.cm): The estimated cumulative dose is 446.04 mGy.cm. FINDINGS: Lockstitch Coat Joiner topogram: Median sternotomy wires. On soft tissue windows, normal thyroid. Bilateral gynecomastia suggested. No axillary, supraclavicular, or mediastinal lymphadenopathy. Evaluation of the erin limited without intravenous contrast. Atherosclerosis of the aorta. Normal heart size. Coronary artery calcification. Postsurgical changes of median sternotomy with coronary artery bypass grafting. Patency of the graft vessels cannot be assessed without contrast. No pericardial or pleural effusion. Cholecystectomy clips. Subcentimeter hypodensity in the liver likely hepatic cyst or hamartoma though indeterminate. Normal liver density. On lung windows, trace centrilobular and paraseptal emphysematous changes. Previously noted solid pulmonary nodules are unchanged including a 6 mm right middle lobe nodule (series 4 image 207), 6 mm subpleural right lower lobe nodule (series 4 image 228) disease, and 3 mm left lower lobe nodule (series 4 image 251). Solid elongated 5 mm nodule in the lingula (series 4 image 22), unchanged. No other nodule. Debris noted in the lower trachea. Mild bronchial wall thickening. On bone windows, normal osseous structures. IMPRESSION: 1. Stable multiple bilateral solid pulmonary nodules measuring up to 6 mm. Follow-up per [employer] 2017 recommendations. 2. Trace emphysema bronchial wall thickening, likely smoking related lung injury. Please refer to below summary of Fleischner Society 2017 recommendations for follow-up of incidental CT nodules (H Palmer et al. Guidelines for management of incidental pulmonary nodules detected on CT images: From the Fleischner Society 2017. Radiology 2017; 284: 228-243.) SOLID NODULES Single nodule; size < 6 mm * Low risk patients: No routine follow-up * High risk patients: Optional CT at 12 months Single nodule; size 6-8 mm * Low risk patients: CT at 6-12 months, then consider CT at 18-24 months * High risk patients: CT at 6-12 months, then at 18-24 months Single nodule; size > 8 mm * Either low or high risk patients: Considered CT at 3 months, PET/CT, or tissue sampling Multiple nodules; size < 6 mm * Low risk patients: No routine follow up * High risk patients: Optional CT at 12 months Multiple nodules; size 6-8 mm * Low risk patients: CT at 3-6 months, then consider CT at 18-24 months * High risk patients: CT at 3-6 months, then at 18-24 months Multiple nodules; size > 8 mm * Low risk patients: CT at 3-6 months, then consider at 18-24 months * High risk patients: CT at 3-6 months, then at 18-24 months SUBSOLID NODULES Single ground-glass nodule * Nodule size < 6 mm: No routine follow-up * Nodule size > or = 6 mm: CT at 6-12 months to confirm persistence, then CT every 2 years until 5 years Single part-solid nodule * Nodule size < 6 mm: No routine follow-up * Nodules size > or = 6 mm: CT at 3-6 months to confirm persistence. If unchanged and solid component remains < 6 mm, annual CT should be performed for 5 years Multiple nodules * Nodule size < 6 mm: CT at 3-6 months. If stable, consider CT at 2 and 4 years. * Nodules size > or = 6 mm: CT at 3-6 months. Subsequent management based on the most suspicious nodule(s) NOTE: 1) These guidelines apply to incidental nodules. These guidelines do NOT apply to patients younger than 35 years, immunocompromised patients, or patients with cancer. 2) Risk categories: * Low risk patients: Minimal or absent history of smoking and/or other known risk factors * High risk patients: History of smoking, exposure to other carcinogens, emphysema, fibrosis, upper lobe location, family history of lung cancer, etc. 3) If a nodule up to 8 mm is partly solid or is ground glass, further follow-up is required after 24 months to exclude possible slow growing adenocarcinoma. Electronically signed by: Jerrod Valverde M.D. 06/17/2017 10:54 AM Dictated Date/Time: 06/17/2017 10:48 AM
== END | disposition home or self-care (01) ==
LOC: C.CTS 10:27
PROVIDERS: ATTEND Family Medicine
DX: R91.8 Other nonspecific abnormal finding of lung field (principal); J43.9 Emphysema, unspecified

== ENCOUNTER 2023-02-25 11:13 | Inpatient (IN) ==
--- NOTE | 2023-02-25 12:13 | XRay Report ---
XR chest 1V not portable CLINICAL HISTORY: Chest pain, nonspecific TECHNIQUE: Single frontal radiograph of the chest was obtained. Comparison: Comparison is made to chest radiograph 02/17/2016 FINDINGS: Median sternotomy wires are unchanged. Cardiomegaly is noted. The aortic arch is calcified. Mild bila teral atelectasis is seen. Small right and moderate left pleural effusions are seen. IMPRESSION: Small right and moderate left pleural effusions are seen. ACT 112: Negative or not required by law. Electronically signed by: Obey Ruiz M.D. 02/25/2023 12:11 PM
[2023-02-25 12:19] LABS: Basophils # (auto) 0.03 K/uL (0.00-0.20); Basophils % (auto) 0.2 %; Eosinophils # (auto) 0.08 K/uL (0.00-0.50); Eosinophils % (auto) 0.7 %; Hematocrit (blood only) 42.5 % (42.0-52.0); Hemoglobin 14.1 g/dl (14.0-18.0); Immature Granulocytes # (auto) 0.05 K/uL (0.01-0.20); Immature Granulocytes % (auto) 0.4 %; Lymphocytes # (auto) 1.21 K/uL (1.20-3.40); Mean Corpuscular Hemoglobin 30.8 pg (25.0-34.0); Mean Corpuscular Hgb Conc 33.2 g/dL (32.0-36.0); Mean Corpuscular Volume 92.8 fL (80.0-100.0); Mean Platelet Volume 11.1 fL (9.4-12.4); Monocytes % (auto) 8.3 %; Neutrophils # (auto) 9.68 K/uL (1.40-6.50); Neutrophils % (auto) 80.4 %; Platelet Count 330 K/uL (130-400); RDW Coefficient of Variation 14.1 % (11.5-14.5); RDW Standard Deviation 48.1 fL (36.4-46.3); Red Blood Count 4.58 M/uL (4.70-6.10); White Blood Count 12.05 K/ul (4.8-10.8)
[2023-02-25 12:28] LABS: Alanine Aminotransferase 23 U/L (7-52); Albumin Globulin Ratio 1.3 (0.9-2); Albumin Level 4.2 gm/dl (3.4-5.0); Alkaline Phosphatase 106 U/L (34-104); Anion Gap 10 (3-11); Aspartate Aminotransferase 22 U/L (13-39); BUN Creatinine Ratio 26.8 (10-20); Bilirubin,Total 0.3 mg/dl (0.2-1.0); Blood Urea Nitrogen 22 mg/dl (6-23); Calcium 9.6 mg/dl (8.6-10.3); Carbon Dioxide 19 mmol/L (21-32); Chloride 107 mmol/L (98-107); Est GFR (African American) 102.4 ml/min; Est GFR (Non-African American) 88.3 ml/min; Globulin 3.2 gm/dl (2.5-4.0); Glucose 99 mg/dl (70-99(Fasting)); Potassium 4.1 mmol/L (3.5-5.1); Sodium 136 mmol/L (136-145); Total Protein 7.4 gm/dl (6.0-8.3)
[2023-02-25 12:39] LABS: INR 0.9 (0.9-1.1); Partial Thromboplastin Time 28 Seconds (21-31); Prothrombin Time 10.4 Seconds (9.0-12.0)
[2023-02-25 12:46] LABS: Influenza A virus by PCR Negative (Neg); Influenza B virus by PCR Negative (Neg); RSV by PCR Negative (Neg); SARS CoV2 RNA(COVID-19) Ceph NEGATIVE (Negative)
--- NOTE | 2023-02-25 12:58 | Emergency Department Note ---
Impression & Plan CHIU (dyspnea on exertion), CHF (congestive heart failure), Elevated troponin, History of coronary artery disease ED Provider Note NAME: ASHLEE CARTER AGE: 72 SEX: M : 1950 ARRIVES VIA: Ambulance INFORMANT: [Patient] ED PROVIDER(S): [Jaylen Randolph MD] CHIEF COMPLAINT: Shortness of breath HISTORY OF PRESENT ILLNESS: The patient is a 72-year-old male who has had a week of increasing dyspnea on exertion. He does note a slight cough that is occasionally productive. No chest pain. No fever although he has had a few sweats. He has not noticed leg edema. The patient was not around anybody sick or ill. He states he has a history of cardiac bypass x 4 in [address] He [address] Fischer from cardiology. Patient cannot recall ever having heart failure or pulmonary edema. He is not on diuretics. PMHx/PSHx/Social Hx: See Below PHYSICAL EXAM: GENERAL: Patient is in no acute distress. HEENT: No acute trauma, normocephalic atraumatic, mucous membranes moist, no nasal congestion. NECK: No stridor, no adenopathy, no meningismus, trachea is midline. LUNGS: Diminished breath sounds, especially on the left. No wheezing. Moist cough noted. HEART: Rhythm seems regular with an occasional extra beat. No obvious murmur. Regular rate ABDOMEN: Soft, nontender, no peritonitis. EXTREMITIES: No cyanosis, full range of motion of all the joints without pain or difficulty. NEUROLOGIC: Oriented x 3, no acute motor or sensory deficits, no focal weakness. SKIN: No jaundice, no diaphoresis. DIFFERENTIAL DIAGNOSIS: Bronchitis or pneumonia, viral illness, cardiac ischemia, anemia, CHF, PE, among others. EMERGENCY DEPARTMENT PROCEDURES: MEDICAL DECISION MAKING: There is a mild leukocytosis, this could be consistent with infection or the stress of his dyspnea and presentation. There is a normal hemoglobin and platelet count. No coagulopathy. No renal failure or significant electrolyte abnormality. No concerning liver enzyme elevation. COVID, RSV and influenza test were negative. Chest x-ray shows some bilateral pleural effusions. No pneumonia. BNP was elevated consistent with heart failure. ECG shows a sinus rhythm with a left bundle branch block. No obvious concerning ST elevation. Cardiac enzyme testing x 1 is slightly elevated, this troponin elevation could be secondary to cardiac injury or potentially mismatch from his dyspnea. A chest CT was done, CHF was seen. Pleural effusions were noted. There was no pneumonia. No PE. The patient was given IV Lasix, 40 mg. The patient presents with dyspnea on exertion. He has known coronary artery disease. He appears to have effusions and heart failure by workup. Certainly, fluid overload could be causing his dyspnea. Given the elevated troponin, given the complaints of chest discomfort and the history of heart disease, I do think hospitalization would be warranted. I spoke with the patient and case management, the on-call hospitalist was consulted. Prior/Outside records/notes reviewed: EMS notes today discussing his presentation and care during transport. ECG per my interpretation: Indication was shortness of breath. The ECG shows what appears to be a sinus rhythm with an occasional PVC. There is a left bundle branch block. The rate is 97. There is no concerning ST elevation. The elevated ST segments in the anterior leads seem secondary to the large QRS complex. The QTc is 518. No old ECGs to use for comparison. Continuous Cardiac Monitoring per my interpretation: An order was placed for continuous cardiac monitoring. The monitor shows a rate of 98 with normal sinus rhythm. Imaging/x-ray results per my interpretation: Chest x-ray does not show pneumonia or pneumothorax. There are bilateral pleural effusions, worse on the left. Chronic Medical/Social conditions affecting care: Advanced age. History of coronary artery disease surgery. Care/Management discussed with: Case management, the on-call hospitalist. Level of care consideration(s): After review of the information above and other included data: --I believe the patient requires escalation of care to admission DISPOSITION: Admission Past Med/Surg History Medical History Hip dislocation, left Avascular necrosis of bone of left hip Rupture of bowel Diverticulitis 2006 ruptured Coronary artery disease Surgical History (Updated 02/25/23 @ 14:44 by Sanket Grace MD) History of colon surgery Perforation from diverticulitis History of hernia surgery History of left hip hemiarthroplasty History of arthroplasty of right shoulder Hx of rotator cuff surgery Hx of cholecystectomy 2002 or 2003 per patient recollection History of coronary artery bypass graft Feb 2016 per patient recollection Social History Smoking Status: Former smoker Tobacco Type: Cigarettes Cigarettes Per Day: 20; Preferred Language: Taiwanese Feels Safe at Home: Yes Allergies Allergies Allergy/AdvReac Type Severity Reaction Status Date / Time morphine Allergy Unknown HIVES Verified 02/25/23 14:53 Home Meds Home Medications Medication Instructions Recorded Confirmed ascorbic acid (vitamin C) 500 mg 500 mg PO QAM ##0 12/03/16 02/25/23 tablet (Vitamin C) aspirin 81 mg chewable tablet 81 mg PO QAM ##0 12/03/16 02/25/23 cholecalciferol (vitamin D3) 25 25 mcg PO QAM 90 days #90 tabs 12/03/16 02/25/23 mcg (1,000 unit) tablet (Vitamin D3) glucosamine sulf dipot 1 cap PO BID ##0 12/03/16 02/25/23 chlr,msm,chond 550 mg-C 30 mg-mili 1 mg capsule (Glucosamine Chondroitin) multivitamin 1 tab PO QAM #0 tabs 12/03/16 02/25/23 omega-3 fatty acids-vitamin E 1 cap PO BID #0 caps 12/03/16 02/25/23 1,000 mg capsule vitamin B complex 1 tab PO QAM ##0 12/03/16 02/25/23 Results & Data (ED) Vital Signs Vital Signs - 24 hr 02/25/23 11:16 02/25/23 11:16 02/25/23 11:26 Temperature 36.4 C L Temperature Source Oral Pulse Rate 98 H Pulse Rate [Apical] 94 H Pulse Rhythm Pulse Rhythm [Apical] Regular Pulse Strength [Apical] Normal Respiratory Rate 22 20 Respiratory Effort / Characteristics Non-Labored Spontaneous Non-Labored Spontaneous Respiratory Depth Normal Normal Respiratory Pattern Regular Regular Blood Pressure 146/84 H Blood Pressure Mean 104 Blood Pressure Position Sitting Blood Pressure Position [Right Arm] Sitting Pulse Oximetry 96 96 Oxygen Delivery Method Room Air Room Air Room Air Sepsis Recent Fever Within 48 Hours No Sepsis New/Unexplained Change in Mental Status No Sepsis Action Taken by Nursing No Action Required 02/25/23 11:26 02/25/23 11:29 02/25/23 11:29 Temperature Temperature Source Pulse Rate 96 H Pulse Rate [Apical] Pulse Rhythm Regular Pulse Rhythm [Apical] Pulse Strength [Apical] Respiratory Rate 22 Respiratory Effort / Characteristics Non-Labored Spontaneous Respiratory Depth Normal Respiratory Pattern Regular Blood Pressure Blood Pressure Mean Blood Pressure Position Blood Pressure Position [Right Arm] Pulse Oximetry 97 97 Oxygen Delivery Method Room Air Room Air Sepsis Recent Fever Within 48 Hours Sepsis New/Unexplained Change in Mental Status Sepsis Action Taken by Intermediate Medications Current Medication List: was personally reviewed by me Laboratory Data Attestation: I reviewed the patient's lab results. 02/25/23 11:49 02/25/23 11:49 Lab Results 02/25/23 02/25/23 02/25/23 Range/Units 11:45 11:49 12:27 WBC 12.05 H (4.8-10.8) K/ul RBC 4.58 L (4.70-6.10) M/uL Hgb 14.1 (14.0-18.0) g/dl Hct 42.5 (42.0-52.0) % MCV 92.8 (80.0-100.0) fL MCH 30.8 (25.0-34.0) pg MCHC 33.2 (32.0-36.0) g/dL RDW Std Deviation 48.1 H (36.4-46.3) fL RDW Coeff of Edward 14.1 (11.5-14.5) % Plt Count 330 (130-400) K/uL MPV 11.1 (9.4-12.4) fL Immature Gran % (Auto) 0.4 % Neut % (Auto) 80.4 % Lymph % (Auto) 10.0 % [place] % (Auto) 8.3 % Eos % (Auto) 0.7 % Baso % (Auto) 0.2 % Neut # (Auto) 9.68 H (1.40-6.50) K/uL Lymph # (Auto) 1.21 (1.20-3.40) K/uL [place] # (Auto) 1.00 H (0.11-0.59) K/uL Eos # (Auto) 0.08 (0.00-0.50) K/uL Baso # (Auto) 0.03 (0.00-0.20) K/uL Immature Gran # (Auto) 0.05 (0.01-0.20) K/uL PT 10.4 (9.0-12.0) Seconds INR 0.9 (0.9-1.1) APTT 28 (21-31) Seconds PTT Ratio 1.0 Sodium 136 (136-145) mmol/L Potassium 4.1 (3.5-5.1) mmol/L Chloride 107 (98-107) mmol/L Carbon Dioxide 19 L (21-32) mmol/L Anion Gap 10 (3-11) BUN 22 (6-23) mg/dl Creatinine 0.82 (0.6-1.4) mg/dl Est Cr Clr Drug Dosing Not Reportable Est GFR ( Amer) 102.4 ml/min Est GFR (Non-Af Amer) 88.3 ml/min BUN/Creatinine Ratio 26.8 H (10-20) Glucose 99 (70-99(Fasting)) mg/dl Calcium 9.6 (8.6-10.3) mg/dl Total Bilirubin 0.3 (0.2-1.0) mg/dl AST 22 (13-39) U/L ALT 23 (7-52) U/L Alkaline Phosphatase 106 H (34-104) U/L Troponin I High Sens 140.7 H* (0-20) pg/ml B-Natriuretic Peptide 271 H (0-100) pg/ml Total Protein 7.4 (6.0-8.3) gm/dl Albumin 4.2 (3.4-5.0) gm/dl Globulin 3.2 (2.5-4.0) gm/dl Albumin/Globulin Ratio 1.3 (0.9-2) SARS-CoV-2 (PCR) NEGATIVE (Negative) Influenza Type A (PCR) Negative (Neg) Influenza Type B (PCR) Negative (Neg) RSV (RT-PCR) Negative (Neg) Administered Medications Discontinued Medications Furosemide (Furosemide 40 Mg/4 Ml Vial) 40 mg IV ONE ONE Stop: 02/25/23 14:06 Last Admin: 02/25/23 14:53 Dose: 40 mg Documented By: ANUSHA Ioversol (Optiray 320 125ml) 117 ml IV ONCE ONE Stop: 02/25/23 13:10 Last Admin: 02/25/23 13:09 Dose: 117 ml Documented By: MODESTO Imaging Data Radiologist's Impression: Chest X-Ray 02/25/23 11:29 XR chest 1V not portable CLINICAL HISTORY: Chest pain, nonspecific TECHNIQUE: Single frontal radiograph of the chest was obtained. Comparison: Comparison is made to chest radiograph 02/17/2016 FINDINGS: Median sternotomy wires are unchanged. Cardiomegaly is noted. The aortic arch is calcified. Mild bilateral atelectasis is seen. Small right and moderate left pleural effusions are seen. IMPRESSION: Small right and moderate left pleural effusions are seen. ACT 112: Negative or not required by law. Electronically signed by: Obey Ruiz M.D. 02/25/2023 12:11 PM Chest CTA 02/25/23 12:48 CT angio chest PE protocol CT DOSE: 742.29 mGy.cm HISTORY: 72 years-old Male with PE. Acute shortness of breath with chest pain TECHNIQUE: Multiple CTA images of the chest were obtained after the intravenous administration of 117 ml Optiray. Coronal and sagittal MIPS were obtained from the axial data set and were submitted for review. All measurements were obtained according to NASCET criteria. A dose lowering technique was utilized adhering to the principles of ALARA. COMPARISON: Chest radiograph of same day, chest CT 01/26/2019 FINDINGS: Unremarkable thyroid. No adenopathy. [place] coronary arterial calcifications are noted. Prior median sternotomy and CABG. Cardiomegaly. No pericardial effusion thoracic aortic aneurysm. No pulmonary emboli identified. The segmental and subsegmental branches are not well visualized. No pneumothorax. Moderate emphysema. Moderate size pleural effusions. Mild biapical pleural-parenchymal scarring with dependent compressive bibasilar atelectasis which is most pronounced in the left lung base. 6 mm solid nodule of the lateral segment right middle lobe, unchanged. Mild groundglass densities of the right upper lobe. Intralobular septal thickening. Scattered bilateral solid pulmonary nodules measuring up to approximately 6 mm appears stable. Central airways appear patent. No acute process of the imaged upper abdomen. Soft tissues are unremarkable. Degenerative changes of the shoulders and spine. No suspicious osseous lesions. IMPRESSION: 1. Cardiomegaly without pulmonary emboli identified. 2. Moderate pleural effusions with bibasilar atelectasis, left greater than right. 3. Emphysema. 4. Scattered bilateral solid pulmonary nodules measuring up to 6 mm appear stable. 5. Mild groundglass densities of the right upper lobe may be infectious or inflammatory. 6. Probable mild pulmonary edema. ACT 112: Negative or not required by law. The above report was generated using voice recognition software. It may contain grammatical, syntax or spelling errors. Electronically signed by: Alton Boo M.D. 02/25/2023 1:55 PM Discharge Plan Visit Data Chief Complaint: Shortness of Breath/Dyspnea Stated Complaint: SOB, COUGH ED Provider: Jaylen Randolph Discharge Problem: CHIU (dyspnea on exertion), CHF (congestive heart failure), Elevated troponin, History of coronary artery disease Patient Disposition: Admitted As Inpatient Condition: Fair Forms Stand Alone Forms: [facility] [employer] Prescriptions Prescriptions: No Action multivitamin Tablet 1 tab PO QAM Qty: 0 ascorbic acid (vitamin C) [Vitamin C] 500 mg Tablet 500 mg PO QAM Qty: 0 aspirin 81 mg Tablet,Chewable 81 mg PO QAM Qty: 0 vitamin B complex Tablet 1 tab PO QAM Qty: 0 Fish Oil 1,000 mg Capsule 1 cap PO BID Qty: 0 cholecalciferol (vitamin D3) [Vitamin D3] 25 mcg (1,000 unit) Tablet 25 mcg PO QAM 90 Days Qty: 90 Glucosamine Chondroitin 550-30-1 mg Capsule 1 cap PO BID Qty: 0 Referrals Referrals: PCP,NO [Primary Care Provider] - Discharge Problem: CHF (congestive heart failure) Qualifiers: Heart failure type: unspecified Heart failure chronicity: acute Qualified Code(s): I50.9 - Heart failure, unspecified
[2023-02-25 13:06] LABS: Troponin I High Sensitivity 140.7 pg/ml (0-20)
[2023-02-25] MEDS ORDERED: OPTIRAY 320 125ml IV ONE (13:09)
--- NOTE | 2023-02-25 13:57 | CT Scan Report ---
CT angio chest PE protocol CT DOSE: 742.29 mGy.cm HISTORY: 72 years-old Male with PE. Acute shortness of breath with chest pain TECHNIQUE: Multiple CTA images of the chest were obtained after the intravenous administration of 117 ml Optiray. Coronal and sagittal MIPS were obtained from the axial data set and were submitted for review. All measurements were obtained according to NASCET criteria. A dose lowering technique was u tilized adhering to the principles of ALARA. COMPARISON: Chest radiograph of same day, chest CT 01/26/2019 FINDINGS: Unremarkable thyroid. No adenopathy. [place] coronary arterial calcifications are noted. Prior median sternotomy and CABG. Cardiomegaly. No pericardial effusion thoracic aortic aneurysm. No pulmonary emb ye identified. The segmental and subsegmental branches are not well visualized. No pneumothorax. Moderate emphysema. Moderate size pleural effusions. Mild biapical pleural-parenchym al scarring with dependent compressive bibasilar atelectasis which is most pronounced in the left carlos g base. 6 mm solid nodule of the lateral segment right middle lobe, unchanged. Mild groundglass densi ties of the right upper lobe. Intralobular septal thickening. Scattered bilateral solid pulmonary nod ules measuring up to approximately 6 mm appears stable. Central airways appear patent. No acute proce ss of the imaged upper abdomen. Soft tissues are unremarkable. Degenerative changes of the shoulders and spine. No suspicious osseous lesions. IMPRESSION: 1. Cardiomegaly without pulmonary emboli identified. 2. Moderate pleural effusions with bibasilar atelectasis, left greater than right. 3. Emphysema. 4. Scattered bilateral solid pulmonary nodules measuring up to 6 mm appear stable. 5. Mild groundglass densities of the right upper lobe may be infectious or inflammatory. 6. Probable mild pulmonary edema. ACT 112: Negative or not required by law. The above report was generated using voice recognition software. It may contain grammatical, syntax o r spelling errors. Electronically signed by: Alton Boo M.D. 02/25/2023 1:55 PM
[2023-02-25] MEDS ORDERED: FUROSEMIDE 40 MG/4 ML VIAL IV ONE (14:05)
--- NOTE | 2023-02-25 14:22 | History & Physical Report ---
Date of Service February 25, 2023 Assessment & Plan (1) Acute congestive heart failure: Plan: History of this in electronic health record but patient does not follow up with his doctors therefore no prescription medications Trend troponin TTE Furosemide 40mg IV daily Strict I&Os Daily weights Consult cardiology given lack of follow up (2) Coronary artery disease: Plan: S/p coronary artery bypass in 2017 per patient recollection No longer taking any prescription medications but does take aspirin 81 mg p.o. daily Continue aspirin Start metoprolol succinate tomorrow Restart atorvastatin Lipid panel with a.m. labs (3) Shortness of breath: Plan: Monitor for fever, increasing WBC on admission but lower suspicion pneumonia on admission (4) Tobacco use disorder: Plan: Declines nicotine patch Plan VTE prophylaxis - Lovenox 40 mg subcu daily Diet - heart healthy, low-sodium, fluid restrict 1500 mL Disposition - admit to med/tele Admission and Anticipated Discharge Date Admission Date: February 25, 2023 History of Present Illness Chief Complaint: Shortness of breath Primary Care Provider: NO PCP Wesley Patel is a 72-year-old male who presents to the ER with shortness of breath. Progressive for last 10 days and much worse today. Associated chills and cough but no fever. No chest pain. He reports a history of coronary artery bypass in 2017. He denies a history of congestive heart failure although it is listed in the electronic health record. Previously followed with Dr. Fischer but reports not following up in many years for no particular reason. He continues to take an aspirin but no other prescription medications as he does not follow with any physicians regularly. He denies any knowledge of previously taking atorvastatin or metoprolol and does not know what these medications help with but were previously listed on his electronic health record. He continues to smoke 1pck/day of cigarettes - reduced just the last week due to his shortness of breath. Allergies Allergy/AdvReac Type Severity Reaction Status Date / Time morphine Allergy Unknown HIVES Verified 02/25/23 14:53 Home Medications Medication Instructions Recorded Confirmed Type ascorbic acid (vitamin C) 500 mg 500 mg PO QAM ##0 12/03/16 02/25/23 History tablet (Vitamin C) aspirin 81 mg chewable tablet 81 mg PO QAM ##0 12/03/16 02/25/23 History cholecalciferol (vitamin D3) 25 25 mcg PO QAM 90 days #90 tabs 12/03/16 02/25/23 History mcg (1,000 unit) tablet (Vitamin D3) glucosamine sulf dipot 1 cap PO BID ##0 12/03/16 02/25/23 History chlr,msm,chond 550 mg-C 30 mg-mili 1 mg capsule (Glucosamine Chondroitin) multivitamin 1 tab PO QAM #0 tabs 12/03/16 02/25/23 History omega-3 fatty acids-vitamin E 1 cap PO BID #0 caps 12/03/16 02/25/23 History 1,000 mg capsule vitamin B complex 1 tab PO QAM ##0 12/03/16 02/25/23 History Past Med/Surg History Medical History (Updated 02/25/23 @ 15:34 by Sanket Grace MD) Hip dislocation, left Avascular necrosis of bone of left hip Rupture of bowel Diverticulitis 2006 ruptured Coronary artery disease Surgical History (Updated 02/25/23 @ 14:44 by Sanket Grace MD) History of colon surgery Perforation from diverticulitis History of hernia surgery History of left hip hemiarthroplasty History of arthroplasty of right shoulder Hx of rotator cuff surgery Hx of cholecystectomy 2002 or 2003 per patient recollection History of coronary artery bypass graft Feb 2016 per patient recollection Social History Smoking Status: Former smoker Tobacco Type: Cigarettes Cigarettes Per Day: 20; Preferred Language: Japanese Feels Safe at Home: Yes Review of Systems Review of Systems: All systems reviewed & are unremarkable except as noted in HPI & below Physical Exam Constitutional: WD/WN, vitals as above Eyes: + anicteric sclerae; normal pupil size Respiratory: normal respiratory effort; no respiratory distress Auscultation: + diminished lung sounds (bibasal); no crackles and no wheezes Cardiovascular: Rate/Rhythm: regular rate and regular rhythm Heart Sounds: no murmur Extremities: normal capillary refill and + pedal edema (trace); no calf tenderness Gastrointestinal (Abdomen): normal bowel sounds, soft, nontender, no hepatosplenomegaly Musculoskeletal: no cyanosis or clubbing, extremities motor strength 5/5 Skin: no rashes, warm and dry Neurologic: moves all extremities and awake; not confused Psychiatric: A+Ox3, euthymic affect Results & Data Results & Data Vital Signs (Past 12 Hours) Vital Signs Temp Pulse Resp BP Pulse Ox O2 Del Method 02/25/23 11:26 36.4 C L 98 H 20 146/84 H 96 Room Air Laboratory Results Abnormal lab results 02/25/23 02/25/23 Range/Units 11:49 12:27 WBC 12.05 H (4.8-10.8) K/ul RBC 4.58 L (4.70-6.10) M/uL RDW Std Deviation 48.1 H (36.4-46.3) fL Neut # (Auto) 9.68 H (1.40-6.50) K/uL [place] # (Auto) 1.00 H (0.11-0.59) K/uL Carbon Dioxide 19 L (21-32) mmol/L BUN/Creatinine Ratio 26.8 H (10-20) Alkaline Phosphatase 106 H (34-104) U/L Troponin I High Sens 140.7 H* (0-20) pg/ml B-Natriuretic Peptide 271 H (0-100) pg/ml Diagnostic Findings XR chest 1V not portable CLINICAL HISTORY: Chest pain, nonspecific TECHNIQUE: Single frontal radiograph of the chest was obtained. Comparison: Comparison is made to chest radiograph 02/17/2016 FINDINGS: Median sternotomy wires are unchanged. Cardiomegaly is noted. The aortic arch is calcified. Mild bilateral atelectasis is seen. Small right and moderate left pleural effusions are seen. IMPRESSION: Small right and moderate left pleural effusions are seen. CT angio chest PE protocol CT DOSE: 742.29 mGy.cm HISTORY: 72 years-old Male with PE. Acute shortness of breath with chest pain TECHNIQUE: Multiple CTA images of the chest were obtained after the intravenous administration of 117 ml Optiray. Coronal and sagittal MIPS were obtained from the axial data set and were submitted for review. All measurements were obtained according to NASCET criteria. A dose lowering technique was utilized adhering to the principles of ALARA. COMPARISON: Chest radiograph of same day, chest CT 01/26/2019 FINDINGS: Unremarkable thyroid. No adenopathy. [place] coronary arterial calcifications are noted. Prior median sternotomy and CABG. Cardiomegaly. No pericardial effusion thoracic aortic aneurysm. No pulmonary emboli identified. The segmental and subsegmental branches are not well visualized. No pneumothorax. Moderate emphysema. Moderate size pleural effusions. Mild biapical pleural-parenchymal scarring with dependent compressive bibasilar atelectasis which is most pronounced in the left lung base. 6 mm solid nodule of the lateral segment right middle lobe, unchanged. Mild groundglass densities of the right upper lobe. Intralobular septal thickening. Scattered bilateral solid pulmonary nodules measuring up to approximately 6 mm appears stable. Central airways appear patent. No acute process of the imaged upper abdomen. Soft tis sues are unremarkable. Degenerative changes of the shoulders and spine. No suspicious osseous lesions. IMPRESSION: 1. Cardiomegaly without pulmonary emboli identified. 2. Moderate pleural effusions with bibasilar atelectasis, left greater than right. 3. Emphysema. 4. Scattered bilateral solid pulmonary nodules measuring up to 6 mm appear stable. 5. Mild groundglass densities of the right upper lobe may be infectious or inflammatory. 6. Probable mild pulmonary edema. Medications Administered ER medications given: Furosemide 40 mg IV ECG Rate (beats per minute): 92 Rhythm: normal sinus Findings: + LBBB and + PVC Comparison ECG Date: from (Feb 17, 2016) Change: no significant change Code Status & VTE Plan Code Status Full VTE Prophylaxis Plan VTE Prophylaxis will be ordered: Yes PG Care Time/CCT Total # of Minutes Spent Total Time Spent with Patient: Total time spent is greater than 50% in coordination of care (as documented) at patient's floor/unit and/or counseling patient: Coding Level of Care Code 46238 INT INP/OBS CARE 2/55MIN Diagnoses Acute congestive heart failure I50.9 Coronary artery disease I25.10 Shortness of breath R06.02 Tobacco use disorder F17.200
[2023-02-25] MEDS ORDERED: NITROGLYCERIN SL 0.4 MG/TAB TAB SL PRN (16:33)
[2023-02-25 16:38] LABS: Adenovirus PCR Not Detected (NotDetected); Bordetella parapertussis PCR Not Detected (NotDetected); Bordetella pertussis PCR Not Detected (NotDetected); Chlamydia pneumoniae PCR Not Detected (NotDetected); Coronavirus 229E PCR Not Detected (NotDetected); Coronavirus CoV-2 (COVID19)PCR Not Detected (NotDetected); Coronavirus HKU1 PCR Not Detected (NotDetected); Coronavirus NL63 PCR Not Detected (NotDetected); Coronavirus OC43PCR Not Detected (NotDetected); Human Metapneumovirus PCR Not Detected (NotDetected); Influenza A PCR Not Detected (NotDetected); Influenza B PCR Not Detected (NotDetected); Mycoplasma pneumoniae PCR Not Detected (NotDetected); Parainfluenza Virus 1 PCR Not Detected (NotDetected); Parainfluenza Virus 2 PCR Not Detected (NotDetected); Parainfluenza Virus 3 PCR Not Detected (NotDetected); Parainfluenza Virus 4 PCR Not Detected (NotDetected); Respiratory Syncytial VirusPCR Not Detected (NotDetected); Rhinovirus/Enterovirus PCR Not Detected (NotDetected)
[2023-02-25 17:29] LABS: Appearance Urine Clear (Clear); Bilirubin Urine Negative (Negative); Blood Urine Trace-intact (Negative); Glucose Urine UA Negative (Negative); Ketones Urine Negative (Negative); Leukocyte Esterase Urine Negative (Negative); Nitrite Urine Negative (Negative); Protein Urine Negative (Negative); Urobilinogen Urine Negative (Negative)
[2023-02-25 17:30] LABS: Color Urine Yellow
[2023-02-25] MEDS ORDERED: INFLUENZA VACCINE HIGH-DOSE (HD-IIV4) PF 65+ 0.7mL SYR IM ONE (17:31)
[2023-02-25 17:38] LABS: Bacteria Urine Negative (Negative); Epithelial Cell Urine 0-5 /lpf (0-5); RBC Urine 0-4 /hpf (0-4); WBC Urine 0-5 /hpf (0-5)
[2023-02-25] MEDS: ACETAMINOPHEN 325 MG TAB PO PRN (18:13)
[2023-02-25] MEDS: DEXTROMETHORPHAN POLYMR COMPLX 30 MG/5 ML UDP PO PRN (20:46)
[2023-02-25] MEDS: ATORVASTATIN 40 MG TAB PO SCH (20:46)
[2023-02-26] MEDS: ALBUT/IPRATROP 3MG/0.5MG NEB 3 ML VIAL NEB PRN (00:22)
[2023-02-26] MEDS: MELATONIN 3 MG TAB PO PRN ×2 (01:10→22:08)
[2023-02-26 07:14] LABS: Basophils # (auto) 0.02 K/uL (0.00-0.20); Basophils % (auto) 0.2 %; Eosinophils # (auto) 0.07 K/uL (0.00-0.50); Eosinophils % (auto) 0.7 %; Hematocrit (blood only) 40.1 % (42.0-52.0); Hemoglobin 13.6 g/dl (14.0-18.0); Immature Granulocytes # (auto) 0.04 K/uL (0.01-0.20); Immature Granulocytes % (auto) 0.4 %; Lymphocytes % (auto) 12.6 %; Mean Corpuscular Hemoglobin 31.4 pg (25.0-34.0); Mean Corpuscular Hgb Conc 33.9 g/dL (32.0-36.0); Mean Corpuscular Volume 92.6 fL (80.0-100.0); Mean Platelet Volume 11.2 fL (9.4-12.4); Monocytes # (auto) 1.07 K/uL (0.11-0.59); Monocytes % (auto) 11.2 %; Neutrophils # (auto) 7.12 K/uL (1.40-6.50); Neutrophils % (auto) 74.9 %; Platelet Count 308 K/uL (130-400); RDW Coefficient of Variation 14.1 % (11.5-14.5); RDW Standard Deviation 48.1 fL (36.4-46.3); Red Blood Count 4.33 M/uL (4.70-6.10); White Blood Count 9.52 K/ul (4.8-10.8)
[2023-02-26 07:38] LABS: BUN Creatinine Ratio 27.7 (10-20); Calcium 9.1 mg/dl (8.6-10.3); Creatinine Clr Calc Pharmacy 86.6 ml/min; Est GFR (African American) 101.9 ml/min; Est GFR (Non-African American) 87.9 ml/min; Magnesium 1.9 mg/dl (1.7-2.4); Potassium 3.7 mmol/L (3.5-5.1)
[2023-02-26 07:51] LABS: Troponin I High Sensitivity 177.5 pg/ml (0-20)
--- NOTE | 2023-02-26 07:54 | Hospitalist Progress Note ---
Date of Service February 26, 2023 Assessment & Plan (1) Acute congestive heart failure: (2) Coronary artery disease: (3) Shortness of breath: (4) Tobacco use disorder: Plan #Acute congestive heart failure: -History of this in electronic health record but patient does not follow up with his doctors therefore no prescription medications -Trend troponin, most likely to demand ischemia. -TTE pending -Furosemide 40mg IV daily, given an extra IV dose of of 40 mg on 02/26. -Strict I&Os -Daily weights -Cardiology consulted: -Continue metoprolol, add on spironolactone. Does not tolerate JEREMY/ARB. -Consider Entresto and SGLT2 inhibitor. -LBBB with prolonged QT, consider BiV pacer pending echo results. #Coronary artery disease: -S/p coronary artery bypass in 2017 per patient recollection -No longer taking any prescription medications but does take aspirin 81 mg p.o. daily -Continue aspirin -Started on metoprolol succinate 25 mg every morning. -Restart atorvastatin -Lipid panel benign. #Shortness of breath: -Monitor for fever, increasing WBC on admission but lower suspicion pneumonia on admission -Improved at Du[facility], should consider outpatient COPD workup. Will continue Duoneb prn. #Tobacco use disorder -Declines nicotine patch VTE prophylaxis - Lovenox 40 mg subcu daily Diet - heart healthy, low-sodium, fluid restrict 1500 mL Disposition - admit to med/tele, will have patient set up at [facility] with PCP. Admission and Anticipated Discharge Date Admission Date: February 25, 2023 Supervising Physician Co-Signing Physician Notes I personally examined the patient and verified all cook points of history and exam, discussed case, and agree with decision making with Dr Fernando feeling ok except gets panic and sob when laying down vitals noted nad heent nc at mmm diminished air entry bibasilar faint mid/lower lung rales no rhonchi no wheeze good effort skin without rashes/pallor/icterus. neuro no focal deficits dyspnea - seems predominantly CHF, can't r/o some degree of concomitant COPD - improving acute on chronic systolic CHF -education gap - felt OK so didn't think that he would need any ongoing management --> initiating teaching that this is a chronic problem that will require chronic management (but that with chronic management i would expect he'll do well, since with zero management he's done better than i would have expected for quite a few years) -diurese, start GDMT - titrate as tolerated -getting set back up w cardiology, PCP probable (mild) demand myocardial ischemia - in the setting of decompensated CHF -no clear sx concerning for angina/no clear need for further w/u at this time- asa/statin pleural effusions - due to CHF - hopefully dyspnea/orthopnea will improve enough w diuresis alone, but if not may need thoracentesis possible COPD - hard to discern how much of dyspnea could be untreated COPD - but given that CHF is at least a dominant portion (if not the whole portion), and not wanting to create further confusion that could lead to repeated bouts of lost to follow up - no specific treatment now; PFTs as outpt DVT proph - lovenox Subjective Patient was seen bedside this morning. States that his breathing has been getting better. Still reports orthopnea. Review of Systems Review of Systems: All systems reviewed & are unremarkable except as noted in Subjective Physical Exam Constitutional: WD/WN, vitals as above Eyes: + anicteric sclerae; normal pupil size Respiratory: normal respiratory effort; no respiratory distress Auscultation: + diminished lung sounds (bibasal); no crackles and no wheezes Cardiovascular: Rate/Rhythm: regular rate and regular rhythm Heart Sounds: no murmur Extremities: normal capillary refill; no calf tenderness and no pedal edema Gastrointestinal (Abdomen): normal bowel sounds, soft, nontender, no hepatosplenomegaly Musculoskeletal: no cyanosis or clubbing, extremities motor strength 5/5 Skin: no rashes, warm and dry Neurologic: moves all extremities and awake; not confused Psychiatric: A+Ox3, euthymic affect Results & Data Results & Data Vital Signs (Past 12 Hours) Vital Signs Temp Pulse Pulse Resp BP BP Pulse Ox 02/26/23 07:41 37.0 C 89 18 124/68 90 02/26/23 07:00 94 H 02/26/23 04:00 36.5 C 78 18 131/63 92 02/26/23 00:58 02/25/23 23:00 36.6 C 91 H 18 126/75 96 02/25/23 21:58 82 O2 Del Method O2 Flow Rate 02/26/23 07:41 Room Air 02/26/23 07:00 02/26/23 04:00 Room Air 02/26/23 00:58 Nasal Cannula 2 02/25/23 23:00 Nasal Cannula 02/25/23 21:58 Resident Activity Tracking Resident Involvement: Resident Care Provided Care Provided: Adult Hospital Medicine
[2023-02-26] MEDS: ASPIRIN 81 MG ECTAB PO SCH (08:29)
[2023-02-26] MEDS: METOPROLOL SUCC 25MG EXT REL TAB PO SCH (08:29)
[2023-02-26] MEDS: FUROSEMIDE 40 MG/4 ML VIAL IV SCH (08:30)
[2023-02-26] MEDS: ACETAMINOPHEN 325 MG TAB PO PRN (08:35)
--- NOTE | 2023-02-26 08:43 | Cardiology Consultation ---
Date of Consultation February 26, 2023 Assessment & Plan (1) HFrEF (heart failure with reduced ejection fraction): (2) Elevated troponin: Plan Pmhx: 1. Left bundle-branch block. A. Severe left main and 3-vessel coronary artery disease. B. CABG x4 with KRISHNAN to LAD, SVG to the diagonal, SVG to the marginal and SVG to the PDA 04/2016. 2. History of thptqjss-vn-nnsqnn left ventricular dysfunction preoperatively with an EF in the range of 30-35%; echo 08/2016 with izwt-gi-xkrbyswx left ventricular dysfunction and an EF in the range of 35-40%. 3. Type 1 diastolic dysfunction with normal left atrial pressures. 4. Emphysema. 5. Longstanding tobacco abuse 6. Significant alcohol abuse, self-described as an alcoholic. 7. Status post removal of basal cell carcinoma on his face. 8. INTOLERANCE TO BOTH JEREMY INHIBITORS AND ANGIOTENSIN RECEPTOR BLOCKERS, DESCRIBING SIGNIFICANT FATIGUE AND FEELING POORLY. 9. Pulmonary nodule. 10. Negative abdominal ultrasound for abdominal aortic aneurysm 11/2016. Mr Patel is in heart failure. His CT and cxr show bilateral pulmonary effusions. His bnp was elevated on admission. He is fortunately experiencing good diuresis. His last echo in 2018 showed and EF of 35 - 40%. Repeat echo is pending. There does not seem to be an obvious reason for this heart failure exacerbation. He was not salt loading. Prior to the hospital he was not on any heart failure medications. He has been placed on metoprolol. We will have him start s pironolactone. He does not tolerate JEREMY/ARB but we may want to see if a low dose could be tolerated down the road with [facility]. We will also want to add an SGLT2 if affordable for him. He was not on his CAD regimen at admission other than ASA. Statin therapy was reinitiated and we discussed it's importance in preventing future heart attacks and strokes. A lipid panel is pending. He has a mild increase in his troponin likely due to demand ischemia from heart failure. An EKG is pending for today. He has a known LBBB which is wider than 150 ms as well as prolonged QT on his admission. His mag and potassium were wnl. If his EF has decreased on the pending echo he would be a candidate for a BiV pacer which can be done on an outpatient basis. I impressed upon him the importance of follow up so that we can keep him out of the hospital with another heart failure exacerbation. History of Present Illness Attending Physician: Derek Grider DO History of Present Illness Mr. Patel presented to the emergency department after a week of worsening sob. He reports chest heaviness but no pain. He did not notice any weight gain or lower extremity edema. Today he feel less sob and less chest heaviness. He cannot think of any changes preceding his sob like viral illness or changes in diet leading to salt loading. Prior to the hospital he had discontinued all of his cardiac medications except for over the counter baby aspirin and he has been taking supplements. SOCIAL HISTORY: Pack per day smoker for over 40 years. He drank alcohol heavily, stopping more than a decade ago. He is x3. He is retired. FAMILY HISTORY: Very positive for premature heart disease including his father, his dad's brother, as well as his grandfather. His dad had multiple heart attacks in his 50s and 60s and of end-stage heart disease. He has a sister who of lupus. Allergies Allergy/AdvReac Type Severity Reaction Status Date / Time morphine Allergy Unknown HIVES Verified 02/25/23 14:53 Home Medications Medication Instructions Recorded Confirmed Type ascorbic acid (vitamin C) 500 mg 500 mg PO QAM ##0 12/03/16 02/25/23 History tablet (Vitamin C) aspirin 81 mg chewable tablet 81 mg PO QAM ##0 12/03/16 02/25/23 History cholecalciferol (vitamin D3) 25 25 mcg PO QAM 90 days #90 tabs 12/03/16 02/25/23 History mcg (1,000 unit) tablet (Vitamin D3) glucosamine sulf dipot 1 cap PO BID ##0 12/03/16 02/25/23 History chlr,msm,chond 550 mg-C 30 mg-mili 1 mg capsule (Glucosamine Chondroitin) multivitamin 1 tab PO QAM #0 tabs 12/03/16 02/25/23 History omega-3 fatty acids-vitamin E 1 cap PO BID #0 caps 12/03/16 02/25/23 History 1,000 mg capsule vitamin B complex 1 tab PO QAM ##0 12/03/16 02/25/23 History Patient History Medical History Hip dislocation, left Avascular necrosis of bone of left hip Rupture of bowel Diverticulitis 2006 ruptured Coronary artery disease Surgical History (Updated 02/25/23 @ 14:44 by Sanket Grace MD) History of colon surgery Perforation from diverticulitis History of hernia surgery History of left hip hemiarthroplasty History of arthroplasty of right shoulder Hx of rotator cuff surgery Hx of cholecystectomy 2002 or 2003 per patient recollection History of coronary artery bypass graft Feb 2016 per patient recollection Social History Smoking Status: Current every day smoker Tobacco Type: Cigarettes Cigarettes Per Day: 1pack; Hx Alcohol Use: No Hx Substance Use: No Preferred Language: Turkish Communication Ability: Effective 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 Required: No Beliefs That Will Affect Care: None Current Living Situation: Alone Current Living Situation Comment: Apartment Feels Safe at Home: Yes Safety Concerns: Feels Safe At This Time Assistive Devices: None Review of Systems Review of Systems: All systems reviewed & are unremarkable except as noted in HPI & below Physical Exam Constitutional: WD/WN, vitals as above Respiratory: normal respiratory effort, lungs clear to auscultation Cardiovascular: RRR, no murmur, no edema Skin: no rashes, warm and dry Neurologic: moves all extremities and awake Psychiatric: A+Ox3, euthymic affect Results & Data Vital Signs (Past 12 Hours) Vital Signs Temp Pulse Pulse Resp BP BP Pulse Ox 02/26/23 07:41 37.0 C 89 18 124/68 90 02/26/23 07:00 94 H 02/26/23 04:00 36.5 C 78 18 131/63 92 02/26/23 00:58 02/25/23 23:00 36.6 C 91 H 18 126/75 96 02/25/23 21:58 82 O2 Del Method O2 Flow Rate 02/26/23 07:41 Room Air 02/26/23 07:00 02/26/23 04:00 Room Air 02/26/23 00:58 Nasal Cannula 2 02/25/23 23:00 Nasal Cannula 02/25/23 21:58
[2023-02-26 09:44] LABS: Chol HDL Ratio 3.4 (0-5)
[2023-02-26] MEDS ORDERED: FUROSEMIDE 40 MG/4 ML VIAL IV ONE (10:55)
--- NOTE | 2023-02-26 13:13 | XCELERA ---
[id number] [id number]
--- NOTE | 2023-02-26 16:07 | Billing Data ---
Date of Service February 26, 2023 Coding Level of Care Code 96725 SUB INP/OBS CARE MIN
[2023-02-26] MEDS ORDERED: POTASSIUM CHLORIDE CRTAB 20 MEQ TABCR PO STA (18:24)
[2023-02-26] MEDS ORDERED: MAGNESIUM OXIDE 400 MG TAB PO ONE (18:45)
[2023-02-26] MEDS: ATORVASTATIN 40 MG TAB PO SCH (19:23)
--- NOTE | 2023-02-27 06:03 | Electrocardiogram Report ---
Test Reason : Blood Pressure : / mmHG Vent. Rate : 097 BPM Atrial Rate : 097 BPM P-R Int : 158 ms QRS Dur : 170 ms QT Int : 408 ms P-R-T Axes : -16 -01 174 degrees QTc Int : 518 ms Sinus rhythm with occasional , and consecutive Premature ventricular complexes Left bundle branch block Abnormal ECG When compared with ECG of 17-FEB-2016 15:20, QT has shortened Confirmed by Fly Lundberg ([id number]) on 02/27/2023 6:03:26 AM Referred By: REFERRED SELF Confirmed By:Fly Lundberg
--- NOTE | 2023-02-27 07:07 | Hospitalist Progress Note ---
Date of Service February 27, 2023 Assessment & Plan (1) Acute congestive heart failure: (2) Coronary artery disease: (3) Shortness of breath: (4) Tobacco use disorder: Plan #Acute congestive heart failure: -History of this in electronic health record but patient does not follow up with his doctors therefore no prescription medications -Troponin slightly elevated most likely demand ischemia. -TTE showed an EF of 30-35% which is similar to his previous echo back in 2016. -Furosemide 40mg IV daily, given an extra IV dose of of 40 mg on 02/26. -Strict I&Os -Daily weights -Cardiology consulted: -Continue metoprolol, add on spironolactone. Does not tolerate JEREMY/ARB. -LBBB with prolonged QT, consider BiV pacer, -Due to a increase in BUN with IV Lasix, should remain on IV 40mg Lasix QAM. -Started on Entresto, though cost may be an issue for patient. -due to his very wide left BBB, the patient remains symptomatic should have cardiac catheterization during hospitalization otherwise have outpatient follow- up with an may need repeating his cardiac catheterization. -Repeat chest x-ray on 02/27 showed improvement in the pulmonary vascular congestion and a slight decrease size of a small right and moderate left pleural effusion. Pleural effusion -Secondary to congestive heart failure -Given that patient can only tolerate a max of 40 mg Lasix once a day and chest x-ray showing a moderate left pleural effusion still, will get a therapeutic thoracentesis -Consult IR for for thoracentesis: -IR would like a pulm consult prior to thoracentesis. -Pulm consulted for thoracentesis. #Coronary artery disease: -S/p coronary artery bypass in 2017 per patient recollection -No longer taking any prescription medications but does take aspirin 81 mg p.o. daily -Continue aspirin -Started on metoprolol succinate 25 mg every morning. -Switch atorvastatin to pravastatin due to asif. -Started on Entresto. -Lipid panel benign. #Shortness of breath: -Monitor for fever, increasing WBC on admission but lower suspicion pneumonia on admission -Improved at Duoneb, should consider outpatient COPD workup. Will continue Duoneb prn. #Tobacco use disorder -Offer nicotine patch. VTE prophylaxis - Lovenox 40 mg subcu daily Diet - heart healthy, low-sodium, fluid restrict 1500 mL Disposition - admit to med/tele, will have patient set up at [facility] with PCP. Admission and Anticipated Discharge Date Admission Date: February 25, 2023 Supervising Physician Co-Signing Physician Notes I personally examined the patient and verified all cook points of history and exam, discussed case, and agree with decision making with Dr Fernando feels about the same as yesterday (fatigue with exertion that he wonders if it c ould be CHIU - he feels more as fatigue now but felt as dyspnea before) vitals noted nad heent nc at mmm breathing unlabored no accessory muscles good effort. neuro no focal deficits dyspnea - seems predominantly CHF, can't r/o some degree of concomitant COPD - initially improved - now status quo from yesterday. CXR seems to have improved edema, BUN/Cr suggest we're nearing the limit of what we can expect to achieve w diuretics - some of his CHIU/fatigue could definitely be angina, but i also wonder (especially with undefined COPD potentially compromising the rest of his lung capacity) if the residual moderate size effusion on the left is also contributing - pulm eval ?thoracentesis acute on chronic systolic CHF -education gap - educated further - he's expressing a better understanding of the situation. continue building GDMT, setting up outpt team again, etc. probable (mild) demand myocardial ischemia - in the setting of decompensated CHF -no clear sx concerning for angina, agree [place] [facility] that exertional fatigue could be anginal equivalent; at the same time fortunately echo sounds to be quite similar to prior - med management for now - asa/statin pleural effusions - due to CHF - see above possible COPD - hard to discern how much of dyspnea could be untreated COPD - but given that CHF is at least a dominant portion (if not the whole portion), and not wanting to create further confusion that could lead to repeated bouts of lost to follow up - no specific treatment now; PFTs as outpt DVT proph - lovenox Subjective Patient seen bedside this morning. States that he feels weak with walking from low energy/fatigue. He is unsure if he has shortness of breath when he is walking. But states that his shortness of breath has improved since coming into the hospital. Denies any chest pain, palpitations, or abdominal pain. Continues to have orthopnea. Review of Systems Review of Systems: All systems reviewed & are unremarkable except as noted in Subjective Physical Exam Constitutional: WD/WN, vitals as above Eyes: + anicteric sclerae; normal pupil size Respiratory: normal respiratory effort; no respiratory distress Auscultation: + diminished lung sounds (bibasal); no crackles and no wheezes Cardiovascular: Rate/Rhythm: regular rate and regular rhythm Heart Sounds: no murmur Extremities: normal capillary refill; no calf tenderness and no pedal edema Gastrointestinal (Abdomen): normal bowel sounds, soft, nontender, no hepatosplenomegaly Musculoskeletal: no cyanosis or clubbing, extremities motor strength 5/5 Skin: no rashes, warm and dry Neurologic: moves all extremities and awake; not confused Psychiatric: A+Ox3, euthymic affect Results & Data Results & Data Vital Signs (Past 12 Hours) Vital Signs Temp Pulse Pulse Resp BP BP Pulse Ox 02/27/23 03:01 36.5 C 73 18 111/62 94 02/27/23 02:06 02/26/23 22:30 69 02/26/23 22:00 36.5 C 74 18 114/68 92 02/26/23 19:33 36.5 C 73 18 116/69 93 O2 Del Method 02/27/23 03:01 Room Air 02/27/23 02:06 Room Air 02/26/23 22:30 02/26/23 22:00 Room Air 02/26/23 19:33 Room Air
[2023-02-27 08:23] LABS: Basophils # (auto) 0.03 K/uL (0.00-0.20); Basophils % (auto) 0.3 %; Eosinophils # (auto) 0.11 K/uL (0.00-0.50); Hematocrit (blood only) 39.1 % (42.0-52.0); Hemoglobin 12.8 g/dl (14.0-18.0); Immature Granulocytes # (auto) 0.06 K/uL (0.01-0.20); Immature Granulocytes % (auto) 0.5 %; Lymphocytes # (auto) 1.65 K/uL (1.20-3.40); Lymphocytes % (auto) 14.3 %; Mean Corpuscular Hemoglobin 30.8 pg (25.0-34.0); Mean Corpuscular Hgb Conc 32.7 g/dL (32.0-36.0); Mean Platelet Volume 11.2 fL (9.4-12.4); Monocytes # (auto) 1.33 K/uL (0.11-0.59); Monocytes % (auto) 11.6 %; Neutrophils # (auto) 8.32 K/uL (1.40-6.50); Neutrophils % (auto) 72.3 %; Platelet Count 299 K/uL (130-400); RDW Coefficient of Variation 14.1 % (11.5-14.5); RDW Standard Deviation 48.5 fL (36.4-46.3); Red Blood Count 4.16 M/uL (4.70-6.10)
[2023-02-27] MEDS: SPIRONOLACTONE 25 MG TAB PO SCH (08:26)
[2023-02-27] MEDS: ASPIRIN 81 MG ECTAB PO SCH (08:26)
[2023-02-27] MEDS: METOPROLOL SUCC 25MG EXT REL TAB PO SCH (08:26)
[2023-02-27] MEDS: FUROSEMIDE 40 MG/4 ML VIAL IV SCH (08:27)
[2023-02-27] MEDS: ACETAMINOPHEN 325 MG TAB PO PRN ×3 (08:38→21:37)
[2023-02-27 08:43] LABS: BUN Creatinine Ratio 34.4 (10-20); Creatinine Clr Calc Pharmacy 75.3 ml/min; Est GFR (African American) 91.2 ml/min; Est GFR (Non-African American) 78.7 ml/min; Magnesium 2.2 mg/dl (1.7-2.4); Potassium 4.3 mmol/L (3.5-5.1)
[2023-02-27] MEDS ORDERED: ENOXAPARIN INJ 40 MG/0.4 ML SYR SQ SCH (09:00)
[2023-02-27] MEDS: NICOTINE 21 MG/24 HR TDSY TD SCH (09:26)
[2023-02-27] MEDS: MAGNESIUM OXIDE 400 MG TAB PO SCH ×2 (09:26→21:32)
--- NOTE | 2023-02-27 09:42 | XRay Report ---
XR chest 2V PA/lateral HISTORY: 72 years-old Male pleural effusion acute cough COMPARISON: CTA chest 02/25/2023 TECHNIQUE: PA and lateral views of the chest FINDINGS: Cardiac silhouette is enlarged. Median sternotomy with CABG. Pulmonary emphysema with chronic interst itial coarsening. No pneumothorax. Small right pleural effusion has mildly decreased in size. Moderat e left pleural effusion is also slightly decreased in size. Mild persistent bibasilar opacities. Impr amanda pulmonary vascular congestion. Degenerative changes of the shoulders and spine. IMPRESSION: 1. Cardiomegaly with improving pulmonary vascular congestion. 2. Slightly decreased size of the small right and moderate left pleural effusions. 3. Mild persistent left basilar predominant opacities. ACT 112: Negative or not required by law. The above report was generated using voice recognition software. It may contain grammatical, syntax o r spelling errors. Electronically signed by: Alton Boo M.D. 02/27/2023 9:41 AM
--- NOTE | 2023-02-27 11:49 | Cardiology Progress Note ---
Date of Service February 27, 2023 Assessment & Plan Admission and Anticipated Discharge Date Admission Date: February 25, 2023 Subjective He feels less short of breath than he did when he came in the hospital. Although he notes he is still dyspneic. He did not appear overly short of breath talking in sentences. He has no lightheadedness or dizziness. He denies any chest discomfort or chest pressure. When I questioned him what his symptoms were before his bypass surgery he notes he did not have any symptoms and it was just because he had a positive stress test in anticipation of needing orthopedic surgery. His lower extremity edema has resolved. He denies any abdominal distention. Is unaware of any palpitations or fluttering. He appears comfortable. Results & Data Vital Signs (Past 12 Hours) Vital Signs Temp Pulse Pulse Resp BP Pulse Ox O2 Del Method 02/27/23 11:41 36.4 C L 78 16 119/71 96 Room Air 02/27/23 07:54 Room Air 02/27/23 07:38 36.8 C 71 16 118/73 93 Room Air 02/27/23 07:00 60 02/27/23 03:01 36.5 C 73 18 111/62 94 Room Air 02/27/23 02:06 Room Air He is awake alert and oriented x 3 HEENT: Severely reduced carotid upstrokes Lungs: Decreased breath sounds in the bases bilaterally no rales rhonchi or wheezing Heart: Regular rate and rhythm, no appreciable murmurs, positive S3 Abdomen: Soft nontender distended positive bowel sounds Extremities: No clubbing cyanosis or edema Psychiatric: His affect appeared appropriate Echocardiogram: Mildly dilated left ventricle with moderate to severe left ventricular dysfunction with moderate to severe global hypokinesis and an ejection fraction in the range of 30-35% Chest x-ray this morning bilateral pleural effusions which are improving. His lab studies were reviewed in detail. IMPRESSIONS: A. Acute Systolic CHF 1. Left bundle-branch block. A. Severe left main and 3-vessel coronary artery disease. B. CABG x4 with KRISHNAN to LAD, SVG to the diagonal, SVG to the marginal and SVG to the PDA 04/2016. 2. History of slttynuo-vn-mskgfa left ventricular dysfunction preoperatively with an EF in the range of 30-35%; echo 08/2016 with upol-ic-nfwyaehw left ventricular dysfunction and an EF in the range of 35-40%. 3. Type 1 diastolic dysfunction with normal left atrial pressures. 4. Emphysema. 5. Longstanding tobacco abuse 6. Significant alcohol abuse, self-described as an alcoholic. 7. Status post removal of basal cell carcinoma on his face. 8. INTOLERANCE TO BOTH JEREMY INHIBITORS AND ANGIOTENSIN RECEPTOR BLOCKERS, DESCRIBING SIGNIFICANT FATIGUE AND FEELING POORLY. 9. Pulmonary nodule. 10. Negative abdominal ultrasound for abdominal aortic aneurysm 11/2016. There are a number of significant challenges in his care. The first being he notes he has a problem just paying for his generic medications. Additionally has had no follow-up and continues to smoke since he was last seen in the office 5 years ago. The other problem is he is looking for a quick fix and wants to get back to where he was last summer without understanding his health issues. Based on his lab studies there is no room to increase his diuretics. I would continue with his IV Lasix as it currently is 40 mg daily. Spironolactone was added to his medical regimen along with Toprol-XL. He should remain on aspirin as well. I would consider switching his atorvastatin to pravastatin which should be on the 90-day $10 list for him. He needs a social service liaison consultation to help with his medications and post Hospital care. He needs nutrition evaluation as he is cooking his own meals. We did discuss a low-salt diet in detail. Although he had shortness of breath in the past on ACEs and ARB's, I think Entresto is a potentially life-saving and life altering drug. He will not be able to afford it. We can give him a coupon for 30 days free and he could apply to get the drug for free through the company given his low income. I think it is worth trying. in addition the hospital may be able to get him samples to tide him over until his application for free medication is approved. Ultimately he has to decide if he wants to take care of himself. I am afraid some of his shortness of breath may also be his anginal Equivalent. Given the fact he has not been on medication for his CAD for 5 years and continues to smoke there is a good chance he has had progression of his cardiovascular disease and coronary artery disease bypasses. If we can stabilize him for now, at that point we can decide as an outpatient with regards to repeating her catheterization and ultimately he may need a biventricular defibrillator given his very wide left bundle branch block. If he remains SOB and is more euvolemic than we would proceed with cath as an inpatient.
--- NOTE | 2023-02-27 16:11 | Pulmonary Consultation ---
Date of Consultation February 27, 2023 Assessment & Plan (1) Acute congestive heart failure: Undergoing diuresis and adjustment of meds by cardiology. Would benefit from cardiac rehab. Some social issues as patient may not be able to afford certain cardiac meds. (2) Pleural effusion due to CHF (congestive heart failure): IR US guided thoracentesis ordered by primary team. Likely patient has pleural effusions from chf. Will need chemistries, cell counts, cultures and cyto sent from fluid. (3) Tobacco abuse counseling: Patient with extensive smoking history. Nicotine patch in place currently. He is interested in quitting. Informed about PA quit line. May have underlying obstructive lung disease and may benefit from outpatient PFTs. Also recommend annual low dose CT chest for lung cancer screening. Plan Thanks for the consult. D/W resident service. History of Present Illness Reason for Consultation: Bilateral pleural effusions Attending Physician: Derek Grider DO History of Present Illness 72 yom with hx of cardiomyopathy and tobacco abuse presenting for crawford, orthopnea and hypoxia. States shortness of breath getting worse over last 2-3 days. Also notes a chronic cough. Smoked 1ppd for past 50 years. Not on any home inhalers. CXR reviewed with L>R pleural effusions. Allergies Allergy/AdvReac Type Severity Reaction Status Date / Time morphine Allergy Unknown HIVES Verified 02/25/23 14:53 Home Medications Medication Instructions Recorded Confirmed Type ascorbic acid (vitamin C) 500 mg 500 mg PO QAM ##0 12/03/16 02/25/23 History tablet (Vitamin C) aspirin 81 mg chewable tablet 81 mg PO QAM ##0 12/03/16 02/25/23 History cholecalciferol (vitamin D3) 25 25 mcg PO QAM 90 days #90 tabs 12/03/16 02/25/23 History mcg (1,000 unit) tablet (Vitamin D3) glucosamine sulf dipot 1 cap PO BID ##0 12/03/16 02/25/23 History chlr,msm,chond 550 mg-C 30 mg-mili 1 mg capsule (Glucosamine Chondroitin) multivitamin 1 tab PO QAM #0 tabs 12/03/16 02/25/23 History omega-3 fatty acids-vitamin E 1 cap PO BID #0 caps 12/03/16 02/25/23 History 1,000 mg capsule vitamin B complex 1 tab PO QAM ##0 12/03/16 02/25/23 History Patient History Medical History (Updated 02/27/23 @ 22:39 by Ian Zavaleta MD) Tobacco abuse counseling Pleural effusion due to CHF (congestive heart failure) Hip dislocation, left Avascular necrosis of bone of left hip Rupture of bowel Diverticulitis 2006 ruptured Coronary artery disease Surgical History (Updated 02/25/23 @ 14:44 by Sanket Grace MD) History of colon surgery Perforation from diverticulitis History of hernia surgery History of left hip hemiarthroplasty History of arthroplasty of right shoulder Hx of rotator cuff surgery Hx of cholecystectomy 2002 or 2003 per patient recollection History of coronary artery bypass graft Feb 2016 per patient recollection Social History Smoking Status: Current every day smoker Tobacco Type: Cigarettes Cigarettes Per Day: 1pack; Hx Alcohol Use: No Hx Substance Use: No Preferred Language: Kyrgyz Communication Ability: Effective Agricultural Commodities Inspector Required: No Beliefs That Will Affect Care: None Current Living Situation: Alone Current Living Situation Comment: Apartment Feels Safe at Home: Yes Safety Concerns: Feels Safe At This Time Assistive Devices: None Review of Systems Review of Systems: All systems reviewed & are unremarkable except as noted in HPI & below Physical Exam Constitutional: WD/WN, vitals as above Neck: trachea midline, no thyromegaly Respiratory: normal respiratory effort, + cough and + tachypneic Auscultation: + crackles Cardiovascular: RRR, no murmur, no edema Gastrointestinal (Abdomen): normal bowel sounds, soft, nontender, no hepato splenomegaly Musculoskeletal: no cyanosis or clubbing, extremities motor strength 5/5 Skin: no rashes, warm and dry Neurologic: patellar DTR's 2+ bilat, sensation intact and PERRL, EOMI, accommodation nl, no face palsy, no dysarthria Psychiatric: A+Ox3, euthymic affect Results & Data Results & Data Vital Signs (Past 12 Hours) Vital Signs Temp Pulse Pulse Resp BP Pulse Ox O2 Del Method 02/27/23 15:02 36.5 C 70 16 109/70 94 Room Air 02/27/23 15:00 69 02/27/23 11:41 36.4 C L 78 16 119/71 96 Room Air 02/27/23 07:54 Room Air 02/27/23 07:38 36.8 C 71 16 118/73 93 Room Air 02/27/23 07:00 60 PG Care Time/CCT Total # of Minutes Spent Total Time Spent with Patient: Total time spent is greater than 50% in coordination of care (as documented) at patient's floor/unit and/or counseling patient: Coding Level of Care Code 51577 INT INP/OBS CARE 2/55MIN Diagnoses Acute congestive heart failure I50.9 Pleural effusion due to CHF (congestive heart failure) I50.9 Tobacco abuse counseling Z71.6
[2023-02-27] MEDS ORDERED: DICLOFENAC SOD 1% GEL 100 GM TUBE EXT PRN (16:13)
[2023-02-27] MEDS: PRAVASTATIN SOD 20 MG TAB PO SCH (16:16)
--- NOTE | 2023-02-27 16:58 | Billing Data ---
Date of Service February 27, 2023 Coding Level of Care Code 54905 SUB INP/OBS CARE MIN
[2023-02-27] MEDS ORDERED: COUGH DROP (SUGAR FREE) LOZ 24 LOZ/1 BOX BUCCAL ONE (17:27)
[2023-02-27] MEDS ORDERED: COUGH DROP (SUGAR FREE) LOZ 24 LOZ/1 BOX BUCCAL PRN (17:28)
[2023-02-27] MEDS: VALSARTAN/SACUBITRIL 26/24MG TAB PO SCH (21:32)
[2023-02-27] MEDS: MELATONIN 3 MG TAB PO PRN (21:36)
--- NOTE | 2023-02-28 07:03 | Hospitalist Progress Note ---
Date of Service February 28, 2023 Assessment & Plan (1) Acute congestive heart failure: (2) Coronary artery disease: (3) Shortness of breath: (4) Tobacco use disorder: Plan #Acute congestive heart failure: -History of this in electronic health record but patient does not follow up with his doctors therefore no prescription medications -Troponin slightly elevated most likely demand ischemia. -TTE showed an EF of 30-35% which is similar to his previous echo back in 2016. -Furosemide 40mg IV daily, given an extra IV dose of of 40 mg on 02/26. -Strict I&Os -Daily weights -Cardiology consulted: -Continue metoprolol, add on spironolactone. Does not tolerate JEREMY/ARB. -LBBB with prolonged QT, consider BiV pacer, -Due to a increase in BUN with IV Lasix, should remain on IV 40mg Lasix QAM. -Started on Entresto, though cost may be an issue for patient. -due to his very wide left BBB, the patient remains symptomatic should have cardiac catheterization during hospitalization otherwise have outpatient follow- up with an may need repeating his cardiac catheterization. -Repeat chest x-ray on 02/27 showed improvement in the pulmonary vascular congestion and a slight decrease size of a small right and moderate left pleural effusion. #Pleural effusion -Secondary to congestive heart failure -Given that patient can only tolerate a max of 40 mg Lasix once a day and chest x-ray showing a moderate left pleural effusion still, will get a therapeutic thoracentesis -Consult IR for for thoracentesis: -IR would like a pulm consult prior to thoracentesis. -Pulm consulted for thoracentesis. -Thoracentesis will be done today at 11 AM. Will monitor the patient after th oracentesis and consider discharge if medically stable. #Coronary artery disease: -S/p coronary artery bypass in 2017 per patient recollection -No longer taking any prescription medications but does take aspirin 81 mg p.o. daily -Continue aspirin -Started on metoprolol succinate 25 mg every morning. -Switch atorvastatin to pravastatin due to asif. -Started on Entresto. -Lipid panel benign. #Shortness of breath: -Monitor for fever, increasing WBC on admission but lower suspicion pneumonia on admission -Improved at Duoneb, should consider outpatient COPD workup. Will continue Duoneb prn. #Tobacco use disorder -Offer nicotine patch. VTE prophylaxis - Lovenox 40 mg subcu daily Diet - heart healthy, low-sodium, fluid restrict 1500 mL Disposition - admit to med/tele, will have patient set up at [facility] with PCP. Admission and Anticipated Discharge Date Admission Date: February 25, 2023 Supervising Physician Co-Signing Physician Notes I personally examined the patient and verified all cook points of history and exam, discussed case, and agree with decision making with Dr Kassie apck in chest. post procedure pneumothorax noted vitals noted uncomfortable heent nc at mmm lungs diminished throughout L worse than R. CXRs noted/personally reviewed subacute dyspnea (acute today from pneumothorax) - seems predominantly CHF, can't r/o some degree of concomitant COPD - initially improved - now s/p thora. ongoing med management and supportive care Postprocedural pneumothoraxfortunately fairly small, seems to be stable. Fairly symptomatic as far as discomfort, but quite stable. Pain control, symptom management, serial chest x-rays. acute on chronic systolic CHF -education gap - Have educated further - he's expressing a better understanding of the situation. continue building GDMT, setting up outpt team again, etc. probable (mild) demand myocardial ischemia - in the setting of decompensated CHF -no clear sx concerning for angina, agree with cardiology that exertional fatigue could be anginal equivalent; at the same time fortunately echo sounds to be quite similar to prior - med management for now - asa/statin pleural effusions - due to CHF - see above possible COPD - hard to discern how much of dyspnea could be untreated COPD - but given that CHF is at least a dominant portion (if not the whole portion), and not wanting to create further confusion that could lead to repeated bouts of lost to follow up - no specific treatment now; PFTs as outpt DVT proph - lovenox Subjective Patient seen bedside this morning. States that he is feeling good still having some shortness of breath. Has some right-sided chest pain that felt like a twinge overnight lasted about 30 seconds and then went away. He is currently waiting to have a thoracentesis done at 11am. Review of Systems Review of Systems: All systems reviewed & are unremarkable except as noted in Subjective Physical Exam Constitutional: WD/WN, vitals as above Eyes: + anicteric sclerae; normal pupil size Respiratory: normal respiratory effort; no respiratory distress Auscultation: + diminished lung sounds (bibasal); no crackles and no wheezes Cardiovascular: Rate/Rhythm: regular rate and regular rhythm Heart Sounds: no murmur Extremities: normal capillary refill; no calf tenderness and no pedal edema Gastrointestinal (Abdomen): normal bowel sounds, soft, nontender, no hepatosplenomegaly Musculoskeletal: no cyanosis or clubbing, extremities motor strength 5/5 Skin: no rashes, warm and dry Neurologic: moves all extremities and awake; not confused Psychiatric: A+Ox3, euthymic affect Results & Data Results & Data Vital Signs (Past 12 Hours) Vital Signs Temp Pulse Pulse Resp BP Pulse Ox O2 Del Method 02/28/23 04:07 36.5 C 62 20 106/64 92 Room Air 02/28/23 00:36 69 02/28/23 00:00 36.9 C 63 20 93/58 L 97 Room Air 02/27/23 21:00 Room Air 02/27/23 20:13 36.4 C L 68 20 113/66 92 Room Air Resident Activity Tracking Resident Involvement: Resident Care Provided Care Provided: Adult Hospital Medicine
[2023-02-28 07:50] LABS: Basophils # (auto) 0.02 K/uL (0.00-0.20); Basophils % (auto) 0.2 %; Eosinophils # (auto) 0.17 K/uL (0.00-0.50); Eosinophils % (auto) 1.7 %; Hematocrit (blood only) 39.3 % (42.0-52.0); Hemoglobin 13.4 g/dl (14.0-18.0); Immature Granulocytes # (auto) 0.03 K/uL (0.01-0.20); Immature Granulocytes % (auto) 0.3 %; Lymphocytes # (auto) 1.47 K/uL (1.20-3.40); Lymphocytes % (auto) 14.3 %; Mean Corpuscular Hemoglobin 31.4 pg (25.0-34.0); Mean Corpuscular Hgb Conc 34.1 g/dL (32.0-36.0); Monocytes # (auto) 1.19 K/uL (0.11-0.59); Monocytes % (auto) 11.6 %; Neutrophils # (auto) 7.38 K/uL (1.40-6.50); Neutrophils % (auto) 71.9 %; Platelet Count 312 K/uL (130-400); RDW Coefficient of Variation 13.9 % (11.5-14.5); RDW Standard Deviation 46.5 fL (36.4-46.3); Red Blood Count 4.27 M/uL (4.70-6.10); White Blood Count 10.26 K/ul (4.8-10.8)
[2023-02-28 07:58] LABS: Potassium 4.2 mmol/L (3.5-5.1)
[2023-02-28 08:03] LABS: Est GFR (African American) 102.9 ml/min; Est GFR (Non-African American) 88.8 ml/min
[2023-02-28] MEDS: FUROSEMIDE 40 MG/4 ML VIAL IV SCH (08:34)
[2023-02-28] MEDS: ASPIRIN 81 MG ECTAB PO SCH (08:34)
[2023-02-28] MEDS: METOPROLOL SUCC 25MG EXT REL TAB PO SCH (08:35)
[2023-02-28] MEDS: VALSARTAN/SACUBITRIL 26/24MG TAB PO SCH ×2 (08:35→20:54)
[2023-02-28] MEDS: NICOTINE 21 MG/24 HR TDSY TD SCH (08:35)
[2023-02-28] MEDS: MAGNESIUM OXIDE 400 MG TAB PO SCH ×2 (08:35→20:54)
[2023-02-28] MEDS: SPIRONOLACTONE 25 MG TAB PO SCH (08:35)
[2023-02-28 09:46] LABS: Albumin Level 4.1 gm/dl (3.4-5.0); Bilirubin,Total 0.5 mg/dl (0.2-1.0); Total Protein 7.4 gm/dl (6.0-8.3)
--- NOTE | 2023-02-28 10:54 | Cardiology Progress Note ---
Date of Service February 28, 2023 Assessment & Plan (1) HFrEF (heart failure with reduced ejection fraction): (2) Elevated troponin: Plan Pmhx: 1. Left bundle-branch block. A. Severe left main and 3-vessel coronary artery disease. B. CABG x4 with KRISHNAN to LAD, SVG to the diagonal, SVG to the marginal and SVG to the PDA 04/2016. 2. History of cvqkecqr-fl-gwzsqy left ventricular dysfunction preoperatively with an EF in the range of 30-35%; echo 08/2016 with mfih-ap-istlcivs left ventricular dysfunction and an EF in the range of 35-40%. 3. Type 1 diastolic dysfunction with normal left atrial pressures. 4. Emphysema. 5. Longstanding tobacco abuse 6. Significant alcohol abuse, self-described as an alcoholic. 7. Status post removal of basal cell carcinoma on his face. 8. INTOLERANCE TO BOTH JEREMY INHIBITORS AND ANGIOTENSIN RECEPTOR BLOCKERS, DESCRIBING SIGNIFICANT FATIGUE AND FEELING POORLY. 9. Pulmonary nodule. 10. Negative abdominal ultrasound for abdominal aortic aneurysm 11/2016. Mr Patel has had good diuresis with IV furosemide and spironolactone. He has a history of CAD but had only been on aspirin pre hospital. Statin therapy has been resumed as well as metoprolol. Some of his dyspnea may also be anginal. He was initiated on atorvastatin but this can be changed to pravastatin at discharge as a 90 day supply is on the $10 list for him as he is having trouble paying for his medications. He should have an SGLT2 added to his regimen but he is unlikely to be able to afford it. He has been started on Entresto low dose He will need an esolidarsto coupon for 30 days free and he could apply to get the drug for free through the company given his low income. Hopefully he would be able to tolerate the low dose of valsartan in esolidarsto. He will need a bmp in 10. He should maintain a low salt diet and quit smoking. We can discuss further outpatient whether cardiac catheterization and/or ICD/BiV would be beneficial for him. I will increase his metoprolol to 50 mg daily given his run of Vtach on telemetry this morning. He should follow up with the cardiology clinic within 2 weeks of discharge. Admission and Anticipated Discharge Date Admission Date: February 25, 2023 Subjective He feels less sob breath today. No chest pain. No palpitations. He is to have a thoracentesis today. He had a 16 beat run of vtach on the monitor this morning which he did not feel at all. Review of Systems Review of Systems: All systems reviewed & are unremarkable except as noted in HPI & below Physical Exam Constitutional: WD/WN, vitals as above Respiratory: normal respiratory effort, lungs clear to auscultation Cardiovascular: RRR, no murmur, no edema Skin: no rashes, warm and dry Neurologic: moves all extremities and awake Psychiatric: A+Ox3, euthymic affect Results & Data Vital Signs (Past 12 Hours) Vital Signs Temp Pulse Pulse Resp BP Pulse Ox O2 Del Method 02/28/23 07:52 36.3 C L 63 16 111/68 94 Room Air 02/28/23 04:07 36.5 C 62 20 106/64 92 Room Air 02/28/23 00:36 69 02/28/23 00:00 36.9 C 63 20 93/58 L 97 Room Air
--- NOTE | 2023-02-28 12:24 | XRay Report ---
SINGLE VIEW CHEST CLINICAL HISTORY: Status post left thoracentesis. FINDINGS: 2 AP, portable, upright chest radiographs are compared to study dated 02/27/2023 and correla valentín with chest CT dated 02/25/2023. The examination is degraded by portable technique and patient rota tion. The patient is status post midline sternotomy. The heart is enlarged and noting atherosclerotic calcification of the thoracic aorta. The pulmonary vasculature is noncongested. Emphysema and chroni c interstitial thickening is similar to previous. There is a small to moderate left apical to basal p neumothorax with a maximum of 1.6 cm of pleural separation. There is atelectasis/consolidation of the left lower lobe. There is a small right pleural effusion. No pneumothorax is seen on the right. The skeletal structures are osteopenic. The bony thorax is grossly intact. IMPRESSION: 1. A small to moderate left apical to basal pneumothorax is seen on the left. 2. Small right pleural effusion. 3. Cardiomegaly and emphysema without radiographic evidence of congestive failure. ACT 112: Negative or not required by law. Electronically signed by: Jaylen Reeder M.D. 02/28/2023 12:22 PM
--- NOTE | 2023-02-28 12:46 | Pulmonology Progress Note ---
Date of Service February 28, 2023 Assessment & Plan (1) Iatrogenic pneumothorax: Plan: Patient with small apical and basilar pneumothorax status post thoracentesis. Follow-up chest x-ray pending. If pneumothorax significantly expands, will need small bore chest tube. Please continue to hold VTE prophylaxis. Discussed with interventional radiology PA (2) Acute congestive heart failure: Plan: Undergoing diuresis and adjustment of meds by cardiology. Would benefit from cardiac rehab. Some social issues as patient may not be able to afford certain cardiac meds. (3) Pleural effusion due to CHF (congestive heart failure): Plan: Patient's status post thoracentesis of the left hemithorax. 800 mL of serous fluid out. Will follow-up cultures, chemistries and cytology. (4) Tobacco abuse counseling: Plan: Patient with extensive smoking history. Nicotine patch in place currently. He is interested in quitting. Informed about PA quit line. May have underlying obstructive lung disease and may benefit from outpatient PFTs. Also recommend annual low dose CT chest for lung cancer screening. Plan Thanks for the consult. D/W resident service. Admission and Anticipated Discharge Date Admission Date: February 25, 2023 Subjective Patient seen status post left thoracentesis by interventional radiology. Patient had a small apical and basilar pneumothorax after the thoracentesis. Patient notes that he has 4 out of 10 pleuritic pain in his mid sternal region. He feels that his breathing is about the same as it has been if not slightly better. He denies any fevers, chills or night sweats. Review of Systems Review of Systems: All systems reviewed & are unremarkable except as noted in HPI & below Physical Exam Constitutional: WD/WN, vitals as above Neck: trachea midline, no thyromegaly Respiratory: normal respiratory effort, + cough and + tachypneic Auscultation: + crackles Cardiovascular: RRR, no murmur, no edema Gastrointestinal (Abdomen): normal bowel sounds, soft, nontender, no hepatosplenomegaly Musculoskeletal: no cyanosis or clubbing, extremities motor strength 5/5 Skin: no rashes, warm and dry Neurologic: patellar DTR's 2+ bilat, sensation intact and PERRL, EOMI, accommodation nl, no face palsy, no dysarthria Psychiatric: A+Ox3, euthymic affect Results & Data Results & Data Vital Signs (Past 12 Hours) Vital Signs Temp Pulse Pulse Resp BP Pulse Ox O2 Del Method 02/28/23 12:38 73 111/67 95 Room Air 02/28/23 11:05 Room Air 02/28/23 11:01 61 02/28/23 07:52 36.3 C L 63 16 111/68 94 Room Air 02/28/23 04:07 36.5 C 62 20 106/64 92 Room Air PG Care Time/CCT Total # of Minutes Spent Total Time Spent with Patient: Total time spent is greater than 50% in coordination of care (as documented) at patient's floor/unit and/or counseling patient: Coding Level of Care Code 88958 SUB INP/OBS CARE 3/50MIN Diagnoses Iatrogenic pneumothorax J95.811 Acute congestive heart failure I50.9 Pleural effusion due to CHF (congestive heart failure) I50.9 Tobacco abuse counseling Z71.6
[2023-02-28 13:06] LABS: Total Protein Pleural Fluid 3.6 gm/dl
--- NOTE | 2023-02-28 13:22 | XRay Report ---
SINGLE VIEW CHEST CLINICAL HISTORY: Pneumothorax status post left thoracentesis. FINDINGS: An AP, portable, upright chest radiograph is compared to study performed earlier the same d ay 02/28/2023 and correlated with chest CT dated 02/25/2023. The examination is degraded by portable te chnique and patient rotation. The patient is status post midline sternotomy. The heart is enlarged an d noting atherosclerotic calcification of the thoracic aorta. The pulmonary vasculature is noncongest ed. Emphysema and chronic interstitial thickening is similar to previous. There is a small to moderat e left apical to basal pneumothorax. There is atelectasis/consolidation of the left lower lobe. There is a small right pleural effusion. No pneumothorax is seen on the right. The skeletal structures are osteopenic. The bony thorax is grossly intact. IMPRESSION: 1. A small to moderate left apical to basal pneumothorax is unchanged. 2. Small right pleural effusion. 3. Cardiomegaly and emphysema without radiographic evidence of congestive failure. ACT 112: Negative or not required by law. Electronically signed by: Jaylen Reeder M.D. 02/28/2023 1:20 PM
--- NOTE | 2023-02-28 13:53 | Ultrasound Report ---
ULTRASOUND-GUIDED LEFT THORACENTESIS CLINICAL HISTORY: Left pleural effusion. COMPARISON STUDY: Chest x-ray dated 02/27/2023. PROCEDURE: Procedure and risks were explained. Informed consent was obtained. A final timeout was com pleted. The left posterior thorax was prepped and draped in sterile fashion. 1% buffered lidocaine wa s utilized for skin anesthesia. Utilizing ultrasound guidance, a 5 [place] safety centesis catheter was advanced into the left pleural effusion. Ultrasound images were obtained. 800 mL of pleural fluid was removed and sent to lab for a nalysis. The catheter was removed and Band-Aid applied. Post procedure chest x-ray demonstrated a sma ll left apical to basilar pneumothorax. Vital signs will be monitored on the floor and repeat chest x -ray will be obtained in roughly one hour. The attending gis programmer was notified. IMPRESSION: Left thoracentesis with small apical and basilar pneumothorax as above. Please see above for further discussion. Performed, dictated, and signed by Raul Cardona PA-C; to be co-signed by Dr. Jaylen Reeder. Electronically signed by: Jaylen Reeder M.D. 02/28/2023 3:17 PM
[2023-02-28 14:24] LABS: Appearance Pleural Fluid Hazy; Color Pleural Fluid Yellow; Eosinophils, Fluid 1 %; Lymphocytes, Fluid 50 %; Mono,Macrophage,Mesothelial 40 %; Neutrophils, Fluid 9 %; RBC Pleural Fluid Auto 3000 /uL; Source Pleural Fluid Left Lung; WBC Pleural Fluid Auto 3507 /uL
[2023-02-28] MEDS ORDERED: HYDROmorphone INJ 0.5 MG/0.5 ML SYR IM PRN (14:47)
--- NOTE | 2023-02-28 16:18 | XRay Report ---
SINGLE VIEW CHEST CLINICAL HISTORY: Follow-up pneumothorax. FINDINGS: An AP, portable, upright chest radiograph is compared to studies performed earlier the same day 02/28/2023 and correlated with chest CT dated 02/25/2023. The examination is degraded by portable technique and patient rotation. The patient is status post midline sternotomy. The heart is enlarged and noting atherosclerotic calcification of the thoracic aorta. The pulmonary vasculature is nonconge sted. Emphysema and chronic interstitial thickening is similar to previous. There is a small to moder ate left apical to basal pneumothorax. There is atelectasis/consolidation of the left lower lobe. The re is a small right pleural effusion. No pneumothorax is seen on the right. The skeletal structures a re osteopenic. The bony thorax is grossly intact. IMPRESSION: 1. A small to moderate left apical to basal pneumothorax has not significantly changed from today's e arlier examinations. 2. Small right pleural effusion. 3. Cardiomegaly and emphysema without radiographic evidence of congestive failure. ACT 112: Negative or not required by law. Electronically signed by: Jaylen Reeder M.D. 02/28/2023 4:16 PM
--- NOTE | 2023-02-28 18:26 | Billing Data ---
Date of Service February 28, 2023 Coding Level of Care Code 87273 SUB INP/OBS CARE MIN
[2023-02-28] MEDS ORDERED: HYDROmorphone INJ 0.5 MG/0.5 ML SYR IV STA (18:27)
[2023-02-28] MEDS: PRAVASTATIN SOD 20 MG TAB PO SCH (18:50)
[2023-02-28 19:06] LABS: Troponin I High Sensitivity 65.3 pg/ml (0-20)
[2023-02-28] MEDS: HYDROmorphone INJ 0.5 MG/0.5 ML SYR IV PRN (20:50)
[2023-02-28] MEDS: DEXTROMETHORPHAN POLYMR COMPLX 30 MG/5 ML UDP PO PRN (22:30)
[2023-03-01] MEDS ORDERED: BENZONATATE 100 MG CAPSULE PO ONE (04:59)
--- NOTE | 2023-03-01 07:36 | XRay Report ---
SINGLE VIEW CHEST CLINICAL HISTORY: Follow-up pneumothorax. FINDINGS: An AP, portable, upright chest radiograph is compared to studies dated 02/28/2023 and correl ated with chest CT dated 02/25/2023. The examination is degraded by portable technique and patient rot ation. The patient is status post midline sternotomy. The heart is enlarged and noting atheroscleroti c calcification of the thoracic aorta. The pulmonary vasculature is noncongested. Emphysema and chron ic interstitial thickening is similar to previous. There is a small to moderate left apical to basal pneumothorax. There is atelectasis/consolidation of the left lower lobe. There is a small right pleur al effusion. Increasing pleural fluid is seen at the left lung base. No pneumothorax is seen on the r ight. The skeletal structures are osteopenic. The bony thorax is grossly intact. IMPRESSION: 1. A small to moderate left apical to basal pneumothorax has not significantly changed from today's e arlier examinations. 2. Small right pleural effusion, with increasing fluid at the left lung base as compared to yesterday . 3. Cardiomegaly and emphysema without radiographic evidence of congestive failure. ACT 112: Negative or not required by law. Electronically signed by: Jaylen Reeder M.D. 03/01/2023 7:34 AM
[2023-03-01] MEDS: MAGNESIUM OXIDE 400 MG TAB PO SCH ×2 (08:24→20:25)
[2023-03-01] MEDS: METOPROLOL SUCC 25MG EXT REL TAB PO SCH (08:24)
[2023-03-01] MEDS: NICOTINE 21 MG/24 HR TDSY TD SCH (08:25)
[2023-03-01] MEDS: VALSARTAN/SACUBITRIL 26/24MG TAB PO SCH ×2 (08:25→20:25)
[2023-03-01] MEDS: SPIRONOLACTONE 25 MG TAB PO SCH (08:25)
[2023-03-01] MEDS: ASPIRIN 81 MG ECTAB PO SCH (08:25)
[2023-03-01] MEDS: FUROSEMIDE 40 MG/4 ML VIAL IV SCH (08:25)
[2023-03-01 08:53] LABS: Basophils # (auto) 0.02 K/uL (0.00-0.20); Basophils % (auto) 0.2 %; Eosinophils # (auto) 0.24 K/uL (0.00-0.50); Eosinophils % (auto) 2.3 %; Hemoglobin 14.5 g/dl (14.0-18.0); Immature Granulocytes # (auto) 0.03 K/uL (0.01-0.20); Immature Granulocytes % (auto) 0.3 %; Lymphocytes # (auto) 1.32 K/uL (1.20-3.40); Lymphocytes % (auto) 12.9 %; Mean Corpuscular Hemoglobin 31.7 pg (25.0-34.0); Mean Corpuscular Hgb Conc 34.5 g/dL (32.0-36.0); Mean Corpuscular Volume 91.7 fL (80.0-100.0); Mean Platelet Volume 10.3 fL (9.4-12.4); Monocytes # (auto) 1.17 K/uL (0.11-0.59); Monocytes % (auto) 11.4 %; Neutrophils # (auto) 7.49 K/uL (1.40-6.50); Neutrophils % (auto) 72.9 %; Platelet Count 332 K/uL (130-400); RDW Coefficient of Variation 13.6 % (11.5-14.5); Red Blood Count 4.58 M/uL (4.70-6.10); White Blood Count 10.27 K/ul (4.8-10.8)
[2023-03-01 09:05] LABS: Calcium 8.7 mg/dl (8.6-10.3); Creatinine Clr Calc Pharmacy 85.1 ml/min; Est GFR (African American) 100.9 ml/min; Est GFR (Non-African American) 87.1 ml/min; Magnesium 2.4 mg/dl (1.7-2.4); Potassium 4.4 mmol/L (3.5-5.1)
[2023-03-01] MEDS: ACETAMINOPHEN 325 MG TAB PO PRN (09:18)
[2023-03-01] MEDS: HYDROmorphone INJ 0.5 MG/0.5 ML SYR IV PRN (10:01)
--- NOTE | 2023-03-01 10:25 | Pulmonology Progress Note ---
Date of Service March 01, 2023 Assessment & Plan (1) Iatrogenic pneumothorax: Plan: Patient with small apical and basilar pneumothorax status post thoracentesis. Follow-up chest x-ray is stable. Recommend repeat chest x-ray in 48 hours. No role for chest tube at this time as the pneumothorax is quite small. Patient may have possible pneumo ex vacuo due to chronic effusion. (2) Acute congestive heart failure: Plan: Undergoing diuresis and adjustment of meds by cardiology. Would benefit from cardiac rehab. Some social issues as patient may not be able to afford certain cardiac meds. (3) Pleural effusion due to CHF (congestive heart failure): Plan: Patient's status post thoracentesis of the left hemithorax 02/28/2023. 800 mL of serous fluid out. Effusion is a mild exudate based on lights criteria likely secondary to diuresis. Please follow cultures and cytology. (4) Tobacco abuse counseling: Plan: Patient with extensive smoking history. Nicotine patch in place currently. He is interested in quitting. Informed about PA quit line. May have underlying obstructive lung disease and may benefit from outpatient PFTs. Also recommend annual low dose CT chest for lung cancer screening. Plan Patient will need chest x-ray in 48 to 72 hours. He is stable for discharge from pulmonary perspective. Recommend getting him out of bed to a chair and obtaining ambulatory saturations on room air to see if he qualifies for supplemental oxygen. Otherwise, no further recommendations. Please call with questions. Thank you for the consult. Admission and Anticipated Discharge Date Admission Date: February 25, 2023 Subjective No acute events overnight. Patient notes that he can take a deeper breath today. Denies any significant chest pain. He is having some mild right lower quadrant abdominal discomfort. No tenderness on exam. Review of Systems Review of Systems: All systems reviewed & are unremarkable except as noted in HPI & below Physical Exam Constitutional: WD/WN, vitals as above Neck: trachea midline, no thyromegaly Respiratory: normal respiratory effort Auscultation: + crackles Cardiovascular: RRR, no murmur, no edema Gastrointestinal (Abdomen): normal bowel sounds, soft, nontender, no hepatosplenomegaly Musculoskeletal: no cyanosis or clubbing, extremities motor strength 5/5 Skin: no rashes, warm and dry Neurologic: patellar DTR's 2+ bilat, sensation intact and PERRL, EOMI, accommodation nl, no face palsy, no dysarthria Psychiatric: A+Ox3, euthymic affect Results & Data Results & Data Vital Signs (Past 12 Hours) Vital Signs Temp Pulse Pulse Resp BP Pulse Ox O2 Del Method 03/01/23 08:25 36.7 C 67 18 119/69 98 Nasal Cannula 03/01/23 02:18 36.5 C 93 H 20 154/71 H 97 Nasal Cannula 02/28/23 23:06 57 L 02/28/23 23:00 36.6 C 58 L 20 110/63 98 Nasal Cannula O2 Flow Rate 03/01/23 08:25 6.0 03/01/23 02:18 02/28/23 23:06 02/28/23 23:00 PG Care Time/CCT Total # of Minutes Spent Total Time Spent with Patient: Total time spent is greater than 50% in coordination of care (as documented) at patient's floor/unit and/or counseling patient: Coding Level of Care Code 79354 SUB INP/OBS CARE 03/07MIN Diagnoses Iatrogenic pneumothorax J95.811 Acute congestive heart failure I50.9 Pleural effusion due to CHF (congestive heart failure) I50.9 Tobacco abuse counseling Z71.6
--- NOTE | 2023-03-01 10:52 | Electrocardiogram Report ---
Test Reason : Blood Pressure : / mmHG Vent. Rate : 079 BPM Atrial Rate : 076 BPM P-R Int : 180 ms QRS Dur : 172 ms QT Int : 460 ms P-R-T Axes : 042 -08 168 degrees QTc Int : 527 ms Sinus rhythm with PVCs and PACs Left bundle branch block Abnormal ECG When compared with ECG of 25-FEB-2023 11:40, No significant change Confirmed by Fly Lundberg ([id number]) on 03/01/2023 10:52:15 AM Referred By: REFERRED SELF Confirmed By:Fly Lundberg
--- NOTE | 2023-03-01 11:29 | Hospitalist Progress Note ---
Date of Service March 01, 2023 Assessment & Plan (1) Acute congestive heart failure: (2) Coronary artery disease: (3) Shortness of breath: (4) Tobacco use disorder: Plan Acute HFrEF exacerbation -History of this in electronic health record but patient does not follow up with his doctors therefore no prescription medications -Troponin slightly elevated most likely demand ischemia. -TTE showed an EF of 30-35% which is similar to his previous echo back in 2016. -Furosemide 40mg IV daily, given an extra IV dose of of 40 mg on 02/26. -Strict I&Os -Daily weights -Cardiology consulted: -Continue metoprolol, spironolactone was added this admission. Does not tolerate JEREMY/ARB. -LBBB with prolonged QT, consider BiV pacer placement as outpatient -Continue Lasix 40 mg IV daily -Started on Entresto earlier in admission, though cost may be an issue for patient -Possible cardiac catheterization as outpatient Left pleural effusion -Secondary to congestive heart failure -Repeat chest x-ray on 02/27 showed improvement in the pulmonary vascular congestion and a slight decrease size of a small right and moderate left pleural effusion. -Thoracentesis done on 02/28 by IR -800 ml serous fluid removed -Pulmonary consulted and following -Pleural studies indicate exudative effusion Postprocedural left sided pneumothorax -Noted on CXR following thoracentesis- small apical/basilar PTX -Repeat CXR showed stability without any increase in size -Pulmonary consulted as above -Repeat CXR in 48 hours -Possibly pneumothorax ex vacuo from chronic effusion Coronary artery disease: -S/p coronary artery bypass in 2017 per patient recollection -No longer taking any prescription medications but does take aspirin 81 mg p.o daily Medical management -Continue aspirin -Continue Toprol 25 mg daily, started this admission. Will increase dose to 50 mg given previous 50 beat run of VT -Started on pravastatin due to apparent asif issues with atorvastatin, switch to atorvastatin today -Continue Entresto, started this admission -Lipid panel wnl #Tobacco use disorder -Continue nicotine patch. VTE prophylaxis - Lovenox 40 mg subcu daily Diet - heart healthy, low-sodium, fluid restrict 1500 mL Disposition- sotero have patient set up at [facility] with PCP Admission and Anticipated Discharge Date Admission Date: February 25, 2023 Supervising Physician Co-Signing Physician Notes I personally examined the patient and verified all cook points of history and exam, discussed case, and agree with decision making with Dr Cevallos Feeling better. Pain and pressure in chest is improved. Still feels fairly weak, not quite up to going home yet. Reiterated discussions of acute illness (pneumothorax) that should entirely improve, and discussed chronic illness (ischemic cardiomyopathy precipitating an acute on chronic systolic CHF) being something that will require ongoing maintenance care. Vitals noted, in general he is awake and alert pleasant no distress. HEENT normocephalic atraumatic mucous membranes moist. Breathing unlabored no accessory muscle use good effort. Skin without rashes pallor or icterus. Neuro without focal deficits. We walk lap the entire way around the unit, he notes some fatigue and some leg fatiguebut his heart rate stays in the 70s and his pulse ox in the mid 90s (predominantly 95, I believe the low of 92 briefly) and he shows no significant visual signs of dyspnea (no accessory muscle use/tachypnea/conversational dyspnea) subacute dyspnea (acute during hospital stay from pneumothorax) - seems predominantly CHF, can't r/o some degree of concomitant COPD - initially improved - now s/p thora. ongoing med management and supportive care Postprocedural pneumothoraxfortunately fairly small, seems to be stable. stable for discharge in this respect, chest x-ray in 48 to 72 hours acute on chronic systolic CHF -education gap - Have educated further yet again - and will definitely need ongoing education (when we were discussing his deconditioning he mentioned about recovery from perforated diverticulitisand when I discussed that that may have been a "bigger hole" today get out of, that was an acute problem that could essentially totally heal, whereas now he is dealing with coronary disease that has led to heart muscle from prior MIs that has led to an EF of 35% that for all purposes can be maintained but not improvedand despite our previous conversations he seemed unaware that that was the chronic diagnosis we were managing). continue building GDMT, setting up outpt team again, etc. probable (mild) demand myocardial ischemia - in the setting of decompensated CHF -no clear sx concerning for angina, agree with cardiology that exertional fati suzie could be anginal equivalent; at the same time fortunately echo sounds to be quite similar to prior - med management for now - asa/statin. similarly his leg fatigue with exertion could be deconditioning but also could be claudication given his other vascular disease. pleural effusions - due to CHF - see above possible COPD - hard to discern how much of dyspnea could be untreated COPD - but given that CHF is at least a dominant portion (if not the whole portion), and not wanting to create further confusion that could lead to repeated bouts of lost to follow up - no specific treatment now; PFTs as outpt DVT proph - lovenox Home once he feels up to it. Discussed today that he is actually stable enough to leave the hospital, but certainly would like to see him build a little bit of confidence given that he will have to go home to self-care. Subjective No acute events overnight. Pt reports some improvement in his breathing today, less dyspnea with exertion too. Did have some central chest pain last night which improved with 0.25 mg Dilaudid. Review of Systems Review of Systems: Per HPI/Subjective Physical Exam Constitutional: WD/WN, vitals as above Eyes: + anicteric sclerae; normal pupil size Respiratory: normal respiratory effort; no respiratory distress Ausc ultation: + diminished lung sounds (bibasal); no crackles and no wheezes Cardiovascular: Rate/Rhythm: regular rate and regular rhythm Heart Sounds: no murmur Extremities: normal capillary refill; no calf tenderness and no pedal edema Gastrointestinal (Abdomen): normal bowel sounds, soft, nontender, no hepatosplenomegaly Musculoskeletal: no cyanosis or clubbing, extremities motor strength 5/5 Skin: no rashes, warm and dry Neurologic: moves all extremities and awake; not confused Psychiatric: A+Ox3, euthymic affect Results & Data Results & Data Vital Signs (Past 12 Hours) Vital Signs Temp Pulse Resp BP Pulse Ox O2 Del Method O2 Flow Rate 03/01/23 08:25 36.7 C 67 18 119/69 98 Nasal Cannula 6.0 03/01/23 02:18 36.5 C 93 H 20 154/71 H 97 Nasal Cannula Resident Activity Tracking Resident Involvement: Resident Care Provided Care Provided: Adult Hospital Medicine
--- NOTE | 2023-03-01 17:05 | Billing Data ---
Date of Service March 01, 2023 Coding Level of Care Code 56525 SUB INP/OBS CARE
--- NOTE | 2023-03-02 06:06 | Electrocardiogram Report ---
Test Reason : Blood Pressure : / mmHG Vent. Rate : 066 BPM Atrial Rate : 066 BPM P-R Int : 188 ms QRS Dur : 170 ms QT Int : 474 ms P-R-T Axes : 109 009 -84 degrees QTc Int : 496 ms Poor data quality, interpretation may be adversely affected Sinus rhythm with occasional Premature ventricular complexes Left bundle branch block Abnormal ECG When compared with ECG of 26-FEB-2023 11:13, No significant change Confirmed by Fly Lundberg ([id number]) on 03/02/2023 6:05:59 AM Referred By: REFERRED SELF Confirmed By:Fly Lundberg
--- NOTE | 2023-03-02 07:10 | Hospitalist Progress Note ---
Date of Service March 02, 2023 Assessment & Plan (1) Acute congestive heart failure: Plan: Acute HFrEF exacerbation -History of this in electronic health record but patient does not follow up with his doctors so not on any prescription medications. -Troponin slightly elevated most likely demand ischemia. -TTE showed an EF of 30-35% which is similar to his previous echo back in 2016. -Furosemide 40mg IV daily, given an extra IV dose of of 40 mg on 02/26. -Strict I&Os -Daily weights -Cardiology consulted: * Continue metoprolol, spironolactone was added this admission (does not tolerate JEREMY/ARB) * LBBB with prolonged QT: Consider BiV pacer placement as outpatient * Continue Lasix 40 mg IV daily * Continue with Entresto (already earlier in admission) cost may be an issue for patient after discharge * Consider cardiac catheterization as outpatient Left Pleural Effusion -Secondary to congestive heart failure -Repeat chest x-ray on 02/27 showed improvement in the pulmonary vascular congestion and a slight decrease size of a small right and moderate left pleural effusion. -Thoracentesis done on 02/28 by IR (800 ml serous fluid removed). -Pulmonary consulted and following: Pleural studies indicate exudative effusion * Trend clinically, on repeat CXR on 03/03 (see below: Pneumothorax) Postprocedural Left Sided Pneumothorax -Noted on CXR following thoracentesis- small apical/basilar PTX -Repeat CXR showed stability without any increase in size -Pulmonary consulted as above * Repeat CXR in 48 hours: Can be discharged if stable Coronary Artery Disease -S/p coronary artery bypass in 2017 per patient recollection -No longer taking any prescription medications but does take aspirin 81 mg p.o daily. -Lipid profile within normal limits. -Managing medically: * Continue aspirin * Toprol 50 mg daily (started this admission 25 mg, titrated to 50 mg after run of V. tach) * Atorvastatin 40 mg daily * Continue Entresto (started this admission) Tobacco use disorder * Continue nicotine patch. VTE prophylaxis - Lovenox 40 mg subcu daily Diet - heart healthy, low-sodium, fluid restrict 1500 mL Disposition-MedSurg telemetry. Currently coordinating est. care at d/c with [facility] PCP (2) Coronary artery disease: (3) Shortness of breath: (4) Tobacco use disorder: Admission and Anticipated Discharge Date Admission Date: February 25, 2023 Supervising Physician Co-Signing Physician Notes I personally examined the patient and verified all cook points of history and exam, discussed case, and agree with decision making with Dr oPole sleeping comfortably when i see him. after discussions w resident physician and overall pt progress, allowed to sleep at this time. vitals noted resting, appears overall comfortable maybe mildly tachypnic but on RA no accessory muscles. no rashes/pallor/icterus subacute dyspnea (acute during hospital stay from pneumothorax) - seems predominantly CHF, can't r/o some degree of concomitant COPD - initially improved - now s/p thora. ongoing med management and supportive care Postprocedural pneumothoraxfortunately fairly small, seems to be stable. stable for discharge in this respect, chest x-ray in 48 to 72 hours acute on chronic systolic CHF -education gap - educated on his dxs and what they mean/how they go together/overall management multiple times this stay - and will definitely need ongoing education (when we were discussing his deconditioning he mentioned about recovery from perforated diverticulitisand when I discussed that that may have been a "bigger hole" to dig out of, that was an acute problem that could essentially totally heal, whereas now he is dealing with coronary disease that has led to heart muscle from prior MIs that has led to an EF of 35% that for all purposes can be maintained but not improvedand despite our previous conversations he seemed unaware that that was the chronic diagnosis we were managing). continue building GDMT, setting up outpt team again, etc. probable (mild) demand myocardial ischemia - in the setting of decompensated CHF -no clear sx concerning for angina, agree with cardiology that exertional fatigue could be anginal equivalent; at the same time fortunately echo sounds to be quite similar to prior - med management for now - asa/statin. similarly his leg fatigue with exertion could be deconditioning but also could be claudication given his other vascular disease. pleural effusions - due to CHF - see above possible COPD - hard to discern how much of dyspnea could be untreated COPD - but given that CHF is at least a dominant portion (if not the whole portion), and not wanting to create further confusion that could lead to repeated bouts of lost to follow up - no specific treatment now; PFTs as outpt DVT proph - lovenox Home once he feels up to it. given overall stable day, but still symptomatic early this afternoon - seems too soon for safe dc to his own self-care at this time Subjective Awake at bedside this morning. Reported 2 brief episodes of SOB overnight that resolved quickly after leaning forward. Otherwise, walk labs around the unit without difficulty. Review of Systems Review of Systems: All systems reviewed & are unremarkable except as noted in HPI & below Physical Exam Physical Exam: General: No acute distress HEENT: PERRLA. Normal conjunctiva, anicteric sclera. Oropharynx normal. Respiratory: Diminished breath sounds at right lung base. No crackles, rhonchi, or rubs heard on auscultation. Cardiovascular: RRR without murmurs, gallops, or rubs. No pedal edema. GI: Soft abdomen with normal bowel sounds heard on auscultation. Nontender x4 quadrants Neuro: Alert and oriented x3. Results & Data Results & Data Vital Signs (Past 12 Hours) Vital Signs Temp Pulse Pulse Resp BP Pulse Ox O2 Del Method 03/02/23 02:35 36.8 C 64 18 122/63 93 Room Air 03/01/23 22:51 62 03/01/23 22:47 36.5 C 73 16 98/60 L 97 Room Air 03/01/23 20:55 Room Air Resident Activity Tracking Resident Involvement: Resident Care Provided Care Provided: Adult Hospital Medicine
[2023-03-02] MEDS: SPIRONOLACTONE 25 MG TAB PO SCH (08:51)
[2023-03-02] MEDS: MAGNESIUM OXIDE 400 MG TAB PO SCH ×2 (08:51→21:22)
[2023-03-02] MEDS: VALSARTAN/SACUBITRIL 26/24MG TAB PO SCH ×2 (08:51→21:22)
[2023-03-02] MEDS: DEXTROMETHORPHAN POLYMR COMPLX 30 MG/5 ML UDP PO PRN (08:51)
[2023-03-02] MEDS: ASPIRIN 81 MG ECTAB PO SCH (08:51)
[2023-03-02] MEDS: METOPROLOL SUCC 50MG EXT REL TAB PO SCH (08:51)
[2023-03-02] MEDS: ATORVASTATIN 40 MG TAB PO SCH (08:51)
[2023-03-02] MEDS: NICOTINE 21 MG/24 HR TDSY TD SCH (08:52)
[2023-03-02] MEDS: FUROSEMIDE 40 MG/4 ML VIAL IV SCH (08:55)
[2023-03-02 10:01] LABS: BUN Creatinine Ratio 36.8 (10-20); Calcium 8.9 mg/dl (8.6-10.3); Creatinine Clr Calc Pharmacy 82.2 ml/min; Est GFR (African American) 99.9 ml/min; Est GFR (Non-African American) 86.2 ml/min; Potassium 3.9 mmol/L (3.5-5.1)
[2023-03-02] MEDS ORDERED: FUROSEMIDE INJ 20 MG/2 ML VIAL IV ONE (13:16)
[2023-03-02] MEDS: ALBUT/IPRATROP 3MG/0.5MG NEB 3 ML VIAL NEB PRN (13:25)
--- NOTE | 2023-03-02 15:08 | XRay Report ---
XR chest 1V portable HISTORY: Shortness of breath. Left-sided pneumothorax. Follow-up. COMPARISON: Chest 03/01/2023. FINDINGS: A small left apical pneumothorax is not simply changed. This demonstrates a maximal pleural gap of 9 mm. No right-sided pneumothorax. The heart is mildly enlarged. This remains unchanged. Ther e are poststernotomy changes. No evidence for pulmonary edema. Left basilar densities favor subsegmen seth atelectasis persist. There are calcifications within the aortic knob. Small left pleural effusion again noted. IMPRESSION: No significant change in the small left hydropneumothorax. ACT 112: Negative or not required by law. Electronically signed by: Umberto Miguel M.D. 03/02/2023 3:07 PM
--- NOTE | 2023-03-02 18:38 | Billing Data ---
Date of Service March 02, 2023 Coding Level of Care Code 17876 SUB INP/OBS CARE
[2023-03-03] MEDS: DEXTROMETHORPHAN POLYMR COMPLX 30 MG/5 ML UDP PO PRN ×2 (02:21→08:52)
[2023-03-03] MEDS: ACETAMINOPHEN 325 MG TAB PO PRN ×2 (06:09→11:25)
[2023-03-03] MEDS: METOPROLOL SUCC 50MG EXT REL TAB PO SCH (08:50)
[2023-03-03] MEDS: SPIRONOLACTONE 25 MG TAB PO SCH (08:50)
[2023-03-03] MEDS: VALSARTAN/SACUBITRIL 26/24MG TAB PO SCH (08:50)
[2023-03-03] MEDS: MAGNESIUM OXIDE 400 MG TAB PO SCH (08:50)
[2023-03-03] MEDS: ATORVASTATIN 40 MG TAB PO SCH (08:51)
[2023-03-03] MEDS: NICOTINE 21 MG/24 HR TDSY TD SCH (08:51)
[2023-03-03] MEDS: ASPIRIN 81 MG ECTAB PO SCH (08:51)
[2023-03-03] MEDS: FUROSEMIDE 40 MG/4 ML VIAL IV SCH (08:53)
[2023-03-03 09:03] LABS: Basophils # (auto) 0.03 K/uL (0.00-0.20); Basophils % (auto) 0.3 %; Eosinophils # (auto) 0.36 K/uL (0.00-0.50); Hematocrit (blood only) 40.9 % (42.0-52.0); Hemoglobin 14.5 g/dl (14.0-18.0); Immature Granulocytes # (auto) 0.06 K/uL (0.01-0.20); Immature Granulocytes % (auto) 0.5 %; Lymphocytes # (auto) 1.33 K/uL (1.20-3.40); Lymphocytes % (auto) 11.2 %; Mean Corpuscular Hemoglobin 31.7 pg (25.0-34.0); Mean Corpuscular Hgb Conc 35.5 g/dL (32.0-36.0); Mean Corpuscular Volume 89.5 fL (80.0-100.0); Mean Platelet Volume 10.1 fL (9.4-12.4); Monocytes # (auto) 1.53 K/uL (0.11-0.59); Monocytes % (auto) 12.9 %; Neutrophils # (auto) 8.56 K/uL (1.40-6.50); Neutrophils % (auto) 72.1 %; Platelet Count 356 K/uL (130-400); RDW Coefficient of Variation 13.4 % (11.5-14.5); RDW Standard Deviation 43.9 fL (36.4-46.3); Red Blood Count 4.57 M/uL (4.70-6.10); White Blood Count 11.87 K/ul (4.8-10.8)
[2023-03-03 09:21] LABS: BUN Creatinine Ratio 39.2 (10-20); Creatinine Clr Calc Pharmacy 73.7 ml/min; Est GFR (Non-African American) 77.7 ml/min; Potassium 4.5 mmol/L (3.5-5.1)
--- NOTE | 2023-03-03 10:21 | XRay Report ---
XR chest 1V portable CLINICAL HISTORY: Left hydropneumothorax COMPARISON STUDY: Chest CT February 25, 2023. Chest radiograph March 02, 2023. FINDINGS: Small left hydropneumothorax is similar to prior chest radiograph. Superior pleural separat ion measures 9 mm. Nipple shadow projects over the right lung. Cardiomediastinal silhouette is stable . There are median sternotomy wires and mediastinal surgical clips. IMPRESSION: No change in a small left hydropneumothorax. ACT 112: Negative or not required by law. Electronically signed by: Americo Bill M.D. 03/03/2023 10:20 AM
--- NOTE | 2023-03-03 14:42 | Discharge Summary ---
Date of Service March 03, 2023 Admission HPI Per Admitting Provider Wesley Patel is a 72-year-old male who presents to the ER with shortness of breath. Progressive for last 10 days and much worse today. Associated chills and cough but no fever. No chest pain. He reports a history of coronary artery bypass in 2017. He denies a history of congestive heart failure although it is listed in the electronic health record. Previously followed with Dr. Fischer but reports not following up in many years for no particular reason. He continues to take an aspirin but no other prescription medications as he does not follow with any physicians regularly. He denies any knowledge of previously taking atorvastatin or metoprolol and does not know what these medications help with but were previously listed on his electronic health record. He continues to smoke 1pck/day of cigarettes - reduced just the last week due to his shortness of breath. Admission Exam Per Admitting Provider Constitutional: WD/WN, vitals as above Eyes: + anicteric sclerae; normal pupil size Respiratory: normal respiratory effort; no respiratory distress Auscultation: + diminished lung sounds (bibasal); no crackles and no wheezes Cardiovascular: Rate/Rhythm: regular rate and regular rhythm Heart Sounds: no murmur Extremities: normal capillary refill and + pedal edema (trace); no calf tenderness Gastrointestinal (Abdomen): normal bowel sounds, soft, nontender, no hepatosplenomegaly Musculoskeletal: no cyanosis or clubbing, extremities motor strength 5/5 Skin: no rashes, warm and dry Neurologic: moves all extremities and awake; not confused Psychiatric: A+Ox3, euthymic affect Principal Diagnosis Acute CHF, CAD, left-sided pneumothorax Discharge Exam General: No acute distress HEENT: PERRLA. Normal conjunctiva, anicteric sclera. Oropharynx normal. Respiratory: Normal respiratory effort. Coarse breath sounds heard loudest at the bases bilaterally. Cardiovascular: RRR without murmurs, gallops, or rubs. No pedal edema. Neuro: Alert and oriented x3. Discharge Data Allergies Allergy/AdvReac Type Severity Reaction Status Date / Time morphine Allergy Unknown HIVES Verified 02/25/23 14:53 Consultations 02/25/23 14:13 ED Decision to Admit Stat 02/25/23 16:33 Consult Cardiology Routine 02/27/23 15:40 Consult Pulmonology Routine Ordered Studies 02/25/23 12:48 CT angio chest PE protocol Stat 02/28/23 15:13 IR thoracentesis wo tube US Routine Hospital Course (1) Acute congestive heart failure: Acute HFrEF exacerbation -History of this in electronic health record but patient does not follow up with his doctors so not on any prescription medications. -Troponin slightly elevated most likely demand ischemia. -TTE showed an EF of 30-35% which is similar to his previous echo back in 2016. -Furosemide 40mg IV daily, given an extra IV dose of of 40 mg on 02/26. -Strict I&Os -Daily weights -Cardiology consulted: * Continue metoprolol, spironolactone was added this admission (does not tolerate JEREMY/ARB) * LBBB with prolonged QT: Consider BiV pacer placement as outpatient * Continue Lasix 40 mg IV daily * Continue with Entresto (already earlier in admission) cost may be an issue for patient after discharge * Consider cardiac catheterization as outpatient -Prescriptions for metoprolol succinate 12.5 mg, spironolactone 25 mg, Entresto 26/24 mg, Lasix 20 mg, nitroglycerin 0.4 mg, and atorvastatin 40 mg, all x 90 days sent to pharmacy. Left Pleural Effusion -Secondary to congestive heart failure -Repeat chest x-ray on 02/27 showed improvement in the pulmonary vascular congestion and a slight decrease size of a small right and moderate left pleural effusion. -Thoracentesis done on 02/28 by IR (800 ml serous fluid removed). -Pulmonary consulted and following: Pleural studies indicate exudative effusion * Trend clinically, on repeat CXR on 03/03 (see below: Pneumothorax). Stable Postprocedural Left Sided Pneumothorax -Noted on CXR following thoracentesis- small apical/basilar PTX -Repeat CXR showed stability without any increase in size -Pulmonary consulted as above * Repeat CXR after 48 hours: Unchanged from initial XR. Consider resolved Coronary Artery Disease -S/p coronary artery bypass in 2017 per patient recollection -No longer taking any prescription medications but does take aspirin 81 mg p.o daily. -Lipid profile within normal limits. -Managing medically: * Continue aspirin * Toprol 50 mg daily (started this admission 25 mg, titrated to 50 mg after run of V. tach) * Atorvastatin 40 mg daily * Entresto (started this admission) -Discharged on Toprol, spironolactone, Entresto, Lasix, nitroglycerin, and atorvastatin (as above: Acute HFrEF exacerbation). Tobacco use disorder * Nicotine patch. (2) Coronary artery disease: (3) Shortness of breath: (4) Tobacco use disorder: Total Time Total Time Spent Total Time Spent (In Minutes): <30 Discharge Plan Discharge Items Patient Disposition: Home - Self-Care Reason For Visit: ACUTE ON CHRONIC CHF Discharge Diagnosis: Acute on chronic congestive heart failure with reduced ejection fraction Condition on Discharge: Fair Activity: Resume your previous activity Non-emergency contact: Primary Care Provider and Bookstore Clerk Call non-emergency contact if: you have any medication questions, your pain is unusual for you and your temperature is above 101.5 Follow-up/Referrals: Enrrique Fischer DO [Physician] - (Within 2 weeks of discharge) Jaylen Fernando DO [Resident] - (Within 1 week of discharge) PCP,CHANEL [Primary Care Provider] - Diet: Heart Healthy and Low Sodium (2gm) Addtl Attending Provider Instructions: You were admitted to the hospital for acute exacerbation of your congestive heart failure with reduced ejection fraction. You were treated with Lasix to help your symptoms and required a thoracentesis which removed fluid from around your lungs. This was complicated by a pneumothorax in your left lung, and you were kept in the hospital for further monitoring. Fortunately, this pneu mothorax did not require further medical intervention and, as it has remained stable, we feel that you are ready to be safely discharged home. A discharge summary will be sent to your primary care physician to ensure continuity of care. Please bring this discharge summary with you to your next office appointment so that your provider can review it at that time. Follow-up appointments: * We have requested a follow-up with your director of psychology, please follow-up with them in 1 to 2 weeks. If you do not hear from in 2-3 business days them, please call their office. * We have requested a follow-up appointment with your primary care physician within one week of discharge. Please call their office if you do not hear from them. * Keep all your follow-up appointments as already scheduled. If you cannot make an appointment, notify your provider. Medications: Your medication list has been reviewed and reconciled upon discharge to ensure accuracy and continuity of care. An updated list of all your medications is included with your hospital discharge paperwork. Please review this list closely, and make note of any changes. * We sent a new medication called Lasix to your pharmacy. Take Lasix 20 mg once a day. * We sent a new medication called Entresto to your pharmacy. Take Entresto 26/24mg once a day. * We Sent a new medication called metoprolol succinate to your pharmacy. Take metoprolol succinate 25 mg once a day. * We sent a new medication called spironolactone to your pharmacy. Take spironolactone 25 mg once a day. * We sent a new medication called atorvastatin to your pharmacy. Take atorvastatin 40 mg once a day. * We sent a new medication called nitroglycerin to your pharmacy. Take nitroglycerin 0.4 mg sublingually (dissolved under tongue) every 5 minutes as needed for chest pain. * If you have any issues filling these prescriptions, please call [phone] and ask to leave a message for Dr. Fernando. * Take your medications as instructed; do not skip a dose of your medicines. Make sure all of your doctors know every medicine you are taking (including [id number] medicines, vitamins, and supplements). Call your primary care provider before taking any new medicines (including over- the-counter medicines, vitamins, and supplements), because some of these may interact with your current medications, or may make your symptoms worse. Tell your primary care provider if you cannot afford your medications. CONTACT YOUR PRIMARY CARE PROVIDER if you experience any of the following: * Worsening of symptoms * Fever, chills, or fatigue * Difficulty following your treatment plan, or difficulty taking medications CALL 911 OR GO TO THE EMERGENCY DEPARTMENT if you experience any of the following: * Sudden, severe abdominal pain or nausea/vomiting * Severe chest pain, or chest pain that radiates (moves) to your jaw or arm * Sudden, severe shortness of breath or difficulty breathing Thank you for allowing us to participate in your care. Pending Studies at Discharge: No Stand-Alone Forms: [facility] [employer], Smoking Cessation Medications and DC Order Prescriptions: New atorvastatin 40 mg Tablet 40 mg PO QAM 90 Days Qty: 90 0RF metoprolol succinate 50 mg Tablet Extended Release 24 Hr 50 mg PO QAM 90 Days Qty: 90 0RF nitroglycerin [Nitrostat] 0.4 mg Tablet, Sublingual 0.4 mg sublingual Q5M PRN (Reason: chest pain) Qty: 60 0RF Entresto 24-26 mg Tablet 1 tab PO BID 90 Days Qty: 180 0RF spironolactone 25 mg Tablet 25 mg PO QAM 90 Days Qty: 90 0RF furosemide 20 mg tablet 20 mg PO DAILY 90 Days Qty: 90 0RF Continued multivitamin Tablet 1 tab PO QAM Qty: 0 ascorbic acid (vitamin C) [Vitamin C] 500 mg Tablet 500 mg PO QAM Qty: 0 aspirin 81 mg Tablet,Chewable 81 mg PO QAM Qty: 0 vitamin B complex Tablet 1 tab PO QAM Qty: 0 omega-3 fatty acids-vitamin E 1,000 mg Capsule 1 cap PO BID Qty: 0 cholecalciferol (vitamin D3) [Vitamin D3] 25 mcg (1,000 unit) Tablet 25 mcg PO QAM 90 Days Qty: 90 Glucosamine Chondroitin 550-30-1 mg Capsule 1 cap PO BID Qty: 0 Discharge Orders: Discharge Order (Routine); Ordered 03/03/23 Ordered By: Vani Poole Admission Data Admit Date/Time: 02/25/23 14:41 Attending Provider: Derek Grider Admit Provider: Sanket Grace Primary Care Provider: PCP,NO Other Providers: Sanket Grace; Enrrique Fischer; Ananth Alejandre; Ian Zavaleta; Tomás Rivera; Melanie You; Raisa Warner; Hailey Walters; Shan Soliman; Kenny Valdivia; Monika Wu Other Interventions: Discharge Summary Assessment (RN) Last Done: 03/03/23 13:54 Supervising Physician Co-Signing Physician Notes I personally examined the patient and verified all cook points of history and exam, discussed case, and agree with decision making with Dr Poole feels good feels up to goiong home CXR stable vitals noted resting, appears overall comfortable maybe mildly tachypnic but on RA no accessory muscles. no rashes/pallor/icterus subacute dyspnea (acute during hospital stay from pneumothorax) - seems predominantly CHF, can't r/o some degree of concomitant COPD - initially improved - now s/p thora. ongoing med management and supportive care; close outpt follow up and ongoing outpt management Postprocedural pneumothoraxfortunately fairly small, stable. stable for discharge in this respect, repeat CXR this coming week again acute on chronic systolic CHF -education gap - educated on his dxs and what they mean/how they go together/overall management multiple times this stay - and will definitely need ongoing education. continue building GDMT, setting up outpt team again, etc. probable (mild) demand myocardial ischemia - in the setting of decompensated CHF -no clear sx concerning for angina, agree with cardiology that exertional fatigue could be anginal equivalent; at the same time fortunately echo sounds to be quite similar to prior - med management for now - asa/statin. similarly his leg fatigue with exertion could be deconditioning but also could be claudication given his other vascular disease. outpt cardiology f/u pleural effusions - due to CHF - see above possible COPD - hard to discern how much of dyspnea could be untreated COPD - but given that CHF is at least a dominant portion (if not the whole portion), and not wanting to create further confusion that could lead to repeated bouts of lost to follow up - no specific treatment now; PFTs as outpt DVT proph - lovenox safe/stable for home. close and ongoing PCP and cardiology f/u. otherwise as above Resident Activity Tracking Resident Involvement: Resident Care Provided Care Provided: Adult Hospital Medicine
--- NOTE | 2023-03-03 19:00 | Billing Data ---
Date of Service March 03, 2023 Coding Level of Care Code 47154 IN/OBS DISCH 30 MIN/LESS
== END 2023-03-03 14:51 | disposition home or self-care (01) | DRG 292 ==
LOC: ED 11:13 → 2N 14:41 → SUATTDRO 14:41 → 2N 16:10 → 4W 02-28 17:00

== ENCOUNTER 2023-03-20 15:22 | Inpatient (IN) ==
--- NOTE | 2023-03-20 15:28 | ED Triage Note ---
Date of Service March 20, 2023 Provider in Triage Author: Jg Santana History of Present Illness This patient was briefly evaluated while in triage. An abbreviated physical exam was performed. This patient is a 72-year-old Male who presents to the ED for evaluation of trouble breathing. If walk around apartment trouble with dyspnea. Short distances cause significant shortness of breath. No chest pain. Physical Exam GENERAL: 72 year old male. In no acute distress. SKIN: No lesions or rashes. HEART: Regular rate and rhythm. LUNGS: Clear to auscultation. NEURO: Alert and oriented. No deficits. MUSCULOSKELETAL: No deformities to inspection of the extremities. PSYCH: Patient is pleasant and answers all questions appropriately. Initial orders for labs and / or imaging were placed and patient was placed in the waiting area until a bed is available. Please see further documentation for the full ED course.
[2023-03-20 16:18] LABS: Basophils # (auto) 0.04 K/uL (0.00-0.20); Basophils % (auto) 0.4 %; Eosinophils # (auto) 0.27 K/uL (0.00-0.50); Eosinophils % (auto) 2.5 %; Hematocrit (blood only) 37.7 % (42.0-52.0); Hemoglobin 12.5 g/dl (14.0-18.0); Immature Granulocytes # (auto) 0.05 K/uL (0.01-0.20); Immature Granulocytes % (auto) 0.5 %; Lymphocytes # (auto) 1.45 K/uL (1.20-3.40); Lymphocytes % (auto) 13.5 %; Mean Corpuscular Hemoglobin 30.7 pg (25.0-34.0); Mean Corpuscular Hgb Conc 33.2 g/dL (32.0-36.0); Mean Corpuscular Volume 92.6 fL (80.0-100.0); Mean Platelet Volume 10.5 fL (9.4-12.4); Monocytes % (auto) 9.3 %; Neutrophils # (auto) 7.95 K/uL (1.40-6.50); Neutrophils % (auto) 73.8 %; Platelet Count 353 K/uL (130-400); RDW Coefficient of Variation 14.6 % (11.5-14.5); RDW Standard Deviation 48.6 fL (36.4-46.3); Red Blood Count 4.07 M/uL (4.70-6.10); White Blood Count 10.76 K/ul (4.8-10.8)
--- NOTE | 2023-03-20 16:27 | Emergency Department Note ---
Impression & Plan CHF (congestive heart failure), Elevated troponin, Pleural effusion due to CHF (congestive heart failure) ED Provider Note NAME: ASHLEE CARTER AGE: 72 SEX: M ARRIVES VIA: Ambulance INFORMANT: Patient ED PROVIDER(S): Fred Modi MD CHIEF COMPLAINT: Shortness of breath. PLAN: Disposition: Admit MEDICAL DECISION MAKING: The patient is a pleasant 72-year-old gentleman with a past medical history of systolic heart failure, recent mission to this facility discharged on 03/03 for CHF exacerbation where he also had pleural effusions which were drained. An iatrogenic pneumothorax resulted but remained stable. Patient reports since being discharged he has not taken his prescribed medications because he was waiting for them to be delivered. He reports he understood that a prescription was sent to [facility] and when [facility] was contacted they did not have a prescription under his name. He reports that he has a home nurse who was visiting and did note that his legs were swollen. He feels his weight has remained stable. Of note, the patient did arrive to emergency department during time of high volume, acuity and prolonged emergency department waiting times. Critical pathways initiated from triage. On my evaluation the patient is in no acute distress, mildly dyspneic, afebrile with stable vital signs. He appears hypervolemic with 1+ bilateral extremity pitting edema. Has diminished breath sounds of bilateral lung bases. Patient's weight does appear to be up approximately 3 kg from his discharge. EKG demonstrates no overt acute ischemia. Left bundle branch block is present similar to prior without Sgarbossa criteria. Chest x-ray demonstrates vascular congestion with moderate pleural effusions with bibasilar consolidation which have developed since his discharge. There is the possibility of trace residual left apical pneumothorax. WBC and platelets within normal limits. H/H within prior range values. Chemistry without metabolic acidosis. High-sensitivity troponin 42, similar to but decreased from prior values. BNP is elevated at 315 slightly increased from prior value. Respiratory BioFire was negative. Given the patient's hypervolemia and dyspnea with minimal exertion patient does agree with plan for referral to hospital service for admission. IV Lasix was ordered. Dr. Grace, [facility] hospitalist, to evaluate the patient for admission. Triage Nursing notes reviewed and agree them. Prior/external medical records reviewed Vital Signs: reviewed Differential diagnosis: Reactive airway disease, pneumonia, pneumothorax, COPD, CHF, infections, cardiac ischemia, pulmonary embolism, musculoskeletal, gastrointestinal, as well as other pathologies. ER treatment provided: See below. Diagnostics interpreted by me: ECG: Sinus rhythm with frequent PVCs and fusion complexes, 77 bpm, left bundle branch block, no scarbossa criteria, QTc 502, QRS 170. Similar to prior. Cardiac Monitoring: An order for continuous cardiac monitoring was placed and demonstrated Sinus rhythm with frequent PVCs and fusion complexes, 77 bpm Laboratory studies: See below Imaging studies: See below Consultation(s): Dr. Grace, [facility] hospitalist. HPI: The patient is a pleasant 72-year-old gentleman with a past medical history of systolic heart failure, recent mission to this facility discharged on 03/03 for CHF exacerbation where he also had pleural effusions which were drained. An iatrogenic pneumothorax resulted but remained stable. Patient reports since being discharged he has not taken his prescribed medications because he was waiting for them to be delivered. He reports he understood that a prescription was sent to [facility] and when [facility] was contacted they did not have a prescription under his name. He reports that he has a home nurse who was visiting and did note that his legs were swollen. He feels his weight has remained stable. ROS: See above HPI for pertinent positives & negatives. A total of 10 systems reviewed and were otherwise negative. VITALS:See Below PHYSICAL EXAMINATION: GENERAL: Awake, alert, in no distress HENT: Normocephalic, atraumatic. Oropharynx unremarkable. EYES: Normal conjunctiva. Sclera non-icteric. NECK: Supple. No nuchal rigidity. FROM. No JVD. RESPIRATORY: Diminished breath sound bilateral bases with mild increased work of breathing but no acute distress CARDIAC: Regular rate, normal rhythm. Extremities warm and well perfused. Pulses equal. ABDOMEN: Soft, non-distended. No tenderness to palpation. No rebound or guarding. No masses. RECTAL: Deferred. MUSCULOSKELETAL: Chest examination reveals no tenderness. The back is symmetrical on inspection without obvious abnormality. There is no CVA tenderness to palpation. No joint edema. LOWER EXTREMITIES: Calves are equal size bilaterally and non-tender. 1+ BLE edema. No discoloration. NEURO: Normal sensorium. No sensory or motor deficits noted. SKIN: No rash or jaundice noted. Fred Modi MD Past Med/Surg History Medical History Iatrogenic pneumothorax Tobacco abuse counseling Pleural effusion due to CHF (congestive heart failure) Hip dislocation, left Avascular necrosis of bone of left hip Rupture of bowel Diverticulitis 2006 ruptured Coronary artery disease Surgical History History of colon surgery Perforation from diverticulitis History of hernia surgery History of left hip hemiarthroplasty History of arthroplasty of right shoulder Hx of rotator cuff surgery Hx of cholecystectomy 2002 or 2003 per patient recollection History of coronary artery bypass graft Feb 2016 per patient recollection Social History Smoking Status: Current every day smoker Tobacco Type: Cigarettes Cigarettes Per Day: 1pack; Hx Alcohol Use: No Hx Substance Use: No Preferred Language: South African Communication Ability: Effective Grommet Machine Operator Required: No Beliefs That Will Affect Care: None Current Living Situation: Alone Current Living Situation Comment: Apartment Feels Safe at Home: Yes Assistive Devices: None Allergies Allergies Allergy/AdvReac Type Severity Reaction Status Date / Time morphine Allergy Intermediate HIVES Verified 03/20/23 17:00 Home Meds Home Medications Medication Instructions Recorded Confirmed ascorbic acid (vitamin C) 500 mg 500 mg PO QAM ##0 12/03/16 03/20/23 tablet (Vitamin C) aspirin 81 mg chewable tablet 81 mg PO QAM ##0 12/03/16 03/20/23 cholecalciferol (vitamin D3) 25 25 mcg PO QAM 90 days #90 tabs 12/03/16 03/20/23 mcg (1,000 unit) tablet (Vitamin D3) glucosamine sulf dipot 1 cap PO BID ##0 12/03/16 03/20/23 chlr,msm,chond 550 mg-C 30 mg-mili 1 mg capsule (Glucosamine Chondroitin) multivitamin 1 tab PO QAM #0 tabs 12/03/16 03/20/23 vitamin B complex 1 tab PO QAM ##0 12/03/16 03/20/23 omega-3 fatty acids 1,000 mg 1,000 mg PO DAILY 03/20/23 03/20/23 capsule Previous Rx's Medication Instructions Recorded atorvastatin 40 mg tablet 40 mg PO QAM 90 days #90 tabs 03/03/23 furosemide 20 mg tablet 20 mg PO DAILY 90 days #90 tabs 03/03/23 metoprolol succinate 50 mg 50 mg PO QAM 90 days #90 tabs 03/03/23 tablet,extended release 24 hr nitroglycerin 0.4 mg sublingual 0.4 mg sublingual Q5M PRN chest 03/03/23 tablet (Nitrostat) pain #60 tabs sacubitril 24 mg-valsartan 26 mg 1 tab PO BID 90 days #180 tabs 03/03/23 tablet (Entresto) spironolactone 25 mg tablet 25 mg PO QAM 90 days #90 tabs 03/03/23 Results & Data (ED) Vital Signs Vital Signs - 24 hr 03/20/23 15:27 03/20/23 15:45 03/20/23 15:46 Temperature 37.1 C Temperature Source Temporal Artery Scan Pulse Rate 90 Respiratory Rate 20 Respiratory Effort / Characteristics Non-Labored Spontaneous Respiratory Depth Normal Respiratory Pattern Regular Blood Pressure 149/86 H Blood Pressure Mean 107 Pulse Oximetry 98 96 96 Oxygen Delivery Method Room Air Room Air Room Air Sepsis Recent Fever Within 48 Hours No Sepsis New/Unexplained Change in Mental Status No Sepsis Action Taken by Nursing No Action Required 03/20/23 16:42 Temperature Temperature Source Pulse Rate 80 Respiratory Rate Respiratory Effort / Characteristics Respiratory Depth Respiratory Pattern Blood Pressure Blood Pressure Mean Pulse Oximetry Oxygen Delivery Method Sepsis Recent Fever Within 48 Hours Sepsis New/Unexplained Change in Mental Status Sepsis Action Taken by Nursing Laboratory Data Attestation: I reviewed the patient's lab results. 03/20/23 15:56 03/20/23 17:23 Lab Results 03/20/23 03/20/23 Range/Units 15:56 17:23 WBC 10.76 (4.8-10.8) K/ul RBC 4.07 L (4.70-6.10) M/uL Hgb 12.5 L (14.0-18.0) g/dl Hct 37.7 L (42.0-52.0) % MCV 92.6 (80.0-100.0) fL MCH 30.7 (25.0-34.0) pg MCHC 33.2 (32.0-36.0) g/dL RDW Std Deviation 48.6 H (36.4-46.3) fL RDW Coeff of Edward 14.6 H (11.5-14.5) % Plt Count 353 (130-400) K/uL MPV 10.5 (9.4-12.4) fL Immature Gran % (Auto) 0.5 % Neut % (Auto) 73.8 % Lymph % (Auto) 13.5 % Wallace % (Auto) 9.3 % Eos % (Auto) 2.5 % Baso % (Auto) 0.4 % Neut # (Auto) 7.95 H (1.40-6.50) K/uL Lymph # (Auto) 1.45 (1.20-3.40) K/uL Wallace # (Auto) 1.00 H (0.11-0.59) K/uL Eos # (Auto) 0.27 (0.00-0.50) K/uL Baso # (Auto) 0.04 (0.00-0.20) K/uL Immature Gran # (Auto) 0.05 (0.01-0.20) K/uL PT Cancelled 10.4 INR Cancelled 0.9 APTT Cancelled 26 PTT Ratio Cancelled 0.9 Sodium 135 L (136-145) mmol/L Potassium TNP 4.4 Chloride 108 H (98-107) mmol/L Carbon Dioxide 21 (21-32) mmol/L Anion Gap 6 (3-11) BUN 26 H (6-23) mg/dl Creatinine 0.79 (0.6-1.4) mg/dl Est Cr Clr Drug Dosing Not Reportable Est GFR ( Amer) 104.0 ml/min Est GFR (Non-Af Amer) 89.7 ml/min BUN/Creatinine Ratio 32.9 H (10-20) Glucose 91 (70-99(Fasting)) mg/dl Calcium 9.2 (8.6-10.3) mg/dl Phosphorus 4.0 (2.5-4.9) mg/dl Magnesium 2.0 (1.7-2.4) mg/dl Total Bilirubin 0.3 (0.2-1.0) mg/dl AST TNP 17 ALT 19 (7-52) U/L Alkaline Phosphatase 89 (34-104) U/L Troponin I High Sens 42.6 H (0-20) pg/ml B-Natriuretic Peptide 315 H (0-100) pg/ml Total Protein 6.9 (6.0-8.3) gm/dl Albumin 3.7 (3.4-5.0) gm/dl Globulin 3.2 (2.5-4.0) gm/dl Albumin/Globulin Ratio 1.2 (0.9-2) Administered Medications Discontinued Medications Furosemide (Furosemide Inj 20 Mg/2 Ml Vial) 20 mg IV ONE ONE Stop: 03/20/23 17:27 Last Admin: 03/20/23 18:17 Dose: 20 mg Documented By: STEVE Furosemide (Furosemide Inj 20 Mg/2 Ml Vial) 20 mg IV ONE ONE Stop: 03/20/23 19:03 Last Admin: 03/20/23 20:18 Dose: 20 mg Documented By: MEIW Imaging Data Radiologist's Impression: Chest X-Ray 03/20/23 15:30 XR chest 1V portable HISTORY: 72 years-old Male Dyspnea acute shortness of breath COMPARISON: 03/03/2023 TECHNIQUE: AP view the chest FINDINGS: Cardiac silhouette is enlarged. Prior median sternotomy with CABG. Pulmonary vascular congestion. Possible residual tiny medial left apical pneumothorax, decreased in size from prior. Moderate layering pleural effusions, left greater than right with bibasilar consolidation. Bones appear grossly intact. IMPRESSION: 1. Cardiomegaly with pulmonary vascular congestion. 2. Moderate pleural effusions with bibasilar consolidation, new from prior. 3. There may be a residual trace left apical pneumothorax. ACT 112: Negative or not required by law. The above report was generated using voice recognition software. It may contain grammatical, syntax or spelling errors. Electronically signed by: Alton Boo M.D. 03/20/2023 4:54 PM Discharge Plan Visit Data Chief Complaint: Shortness of Breath/Dyspnea Stated Complaint: SOB, COUGH ED Provider: Fred Modi Discharge Problem: CHF (congestive heart failure), Elevated troponin, Pleural effusion due to CHF (congestive heart failure) Patient Disposition: Admitted As Inpatient Discharge Instructions Interventions: ED Discharge Assessment Last Done: 03/20/23 21:56 Discharge Problem: CHF (congestive heart failure) Qualifiers: Heart failure type: systolic Heart failure chronicity: acute on chronic Q ualified Code(s): I50.23 - Acute on chronic systolic (congestive) heart failure
[2023-03-20 16:38] LABS: Alanine Aminotransferase 19 U/L (7-52); Albumin Globulin Ratio 1.2 (0.9-2); Albumin Level 3.7 gm/dl (3.4-5.0); Alkaline Phosphatase 89 U/L (34-104); Anion Gap 6 (3-11); BUN Creatinine Ratio 32.9 (10-20); Bilirubin,Total 0.3 mg/dl (0.2-1.0); Blood Urea Nitrogen 26 mg/dl (6-23); Calcium 9.2 mg/dl (8.6-10.3); Carbon Dioxide 21 mmol/L (21-32); Chloride 108 mmol/L (98-107); Est GFR (Non-African American) 89.7 ml/min; Globulin 3.2 gm/dl (2.5-4.0); Glucose 91 mg/dl (70-99(Fasting)); Sodium 135 mmol/L (136-145); Total Protein 6.9 gm/dl (6.0-8.3)
[2023-03-20 16:44] LABS: Troponin I High Sensitivity 42.6 pg/ml (0-20)
--- NOTE | 2023-03-20 16:56 | XRay Report ---
XR chest 1V portable HISTORY: 72 years-old Male Dyspnea acute shortness of breath COMPARISON: 03/03/2023 TECHNIQUE: AP view the chest FINDINGS: Cardiac silhouette is enlarged. Prior median sternotomy with CABG. Pulmonary vascular congestion. Pos sible residual tiny medial left apical pneumothorax, decreased in size from prior. Moderate layering pleural effusions, left greater than right with bibasilar consolidation. Bones appear grossly intact. IMPRESSION: 1. Cardiomegaly with pulmonary vascular congestion. 2. Moderate pleural effusions with bibasilar consolidation, new from prior. 3. There may be a residual trace left apical pneumothorax. ACT 112: Negative or not required by law. The above report was generated using voice recognition software. It may contain grammatical, syntax o r spelling errors. Electronically signed by: Alton Boo M.D. 03/20/2023 4:54 PM
[2023-03-20 17:37] LABS: Adenovirus PCR Not Detected (NotDetected); Bordetella parapertussis PCR Not Detected (NotDetected); Bordetella pertussis PCR Not Detected (NotDetected); Chlamydia pneumoniae PCR Not Detected (NotDetected); Coronavirus 229E PCR Not Detected (NotDetected); Coronavirus CoV-2 (COVID19)PCR Not Detected (NotDetected); Coronavirus HKU1 PCR Not Detected (NotDetected); Coronavirus NL63 PCR Not Detected (NotDetected); Coronavirus OC43PCR Not Detected (NotDetected); Human Metapneumovirus PCR Not Detected (NotDetected); Influenza A PCR Not Detected (NotDetected); Influenza B PCR Not Detected (NotDetected); Mycoplasma pneumoniae PCR Not Detected (NotDetected); Parainfluenza Virus 1 PCR Not Detected (NotDetected); Parainfluenza Virus 2 PCR Not Detected (NotDetected); Parainfluenza Virus 3 PCR Not Detected (NotDetected); Parainfluenza Virus 4 PCR Not Detected (NotDetected); Respiratory Syncytial VirusPCR Not Detected (NotDetected); Rhinovirus/Enterovirus PCR Not Detected (NotDetected)
[2023-03-20 17:51] LABS: Potassium 4.4 mmol/L (3.5-5.1)
[2023-03-20 18:04] LABS: INR 0.9 (0.9-1.1); Partial Thromboplastin Ratio 0.9; Partial Thromboplastin Time 26 Seconds (21-31); Prothrombin Time 10.4 Seconds (9.0-12.0)
[2023-03-20] MEDS: FUROSEMIDE INJ 20 MG/2 ML VIAL IV ONE ×2 (18:17→20:18)
--- NOTE | 2023-03-20 18:17 | History & Physical Report ---
Date of Service March 20, 2023 Assessment & Plan (1) HFrEF (heart failure with reduced ejection fraction): (2) Pleural effusion due to CHF (congestive heart failure): (3) Iatrogenic pneumothorax: (4) Tobacco use disorder: (5) Acute congestive heart failure: (6) Non-sustained ventricular tachycardia: Plan 76 yo male PMHx CAD s/p CABG, HFrEF, tobacco use admitted for dyspnea, LE edema and found to have recurrence of b/l pleural effusion #HFrEF w/ exacerbation Last Echo 02/26/23 EF 30-35% BNP on admission 315 Without medication since discharge Lasix 40mg IV daily; hold home PO Lasix (20mg daily) until euvolemic Restart home medications ASA 81 metoprolol succinate 50mg spironolactone 25mg Entresto 26/24mg Atorvastatin 40mg Strict I/O, daily weights #Pleural Effusion 2/2 CHF Recurrence after resolution at time of discharge Daily CXR Pulm consult if not resolving #Iatrogenic Pneumothorax Small remaining L pneumothorax on CXR No crepitus #Tobacco Use Nicotine patch Tobacco cessation counseling FENGI: Heart Healthy Code status: Full DVT prophylaxis: lovenox Isolation: none Disposition: med tele Admission and Anticipated Discharge Date Admission Date: I personally saw and examined the patient. I independently reviewed the labs, EKG, imaging, problem list, medication list, past medical history and family history. I verified all cook points and agree with resident physician Dr. Ac Powers PA-C with the following exceptions and/or additions: 72-year-old male with recent diagnosis of acute on chronic congestive heart failure with reduced ejection fraction presents to the ER with progressive shortness of breath, weight gain and leg swelling. He did not belt picker any of his medications on discharge. He is [facility] He reports the Entresto was $900 at [facility] pharmacy but also did not belt picker any of the other medications. O/E A&Ox3, HS RRR, no murmurs, Chest bibasal absent breath sounds, Abdo SNT, 2+ pedal edema pitting to abdomen (equal b/l) A/P Acute on chronic heart failure with reduced ejection fraction - due to not taking his medications as prescribed. Restart Lasix 40 mg IV daily as this caused significant diuresis last admission. Restart aspirin, atorvastatin, Entresto, metoprolol succinate, spironolactone. Nonsustained ventricular tachycardia - consult his usual smelter operator History of Present Illness Chief Complaint: Dyspnea, LE edema Primary Care Provider: CHANEL PCP 72 yo male PMHx HFrEF, CAD s/p CABG in 2017 recently discharged from [facility] 03/03/23 for acute HFrEF exacerbation and b/l pleural effusion. Admitted for 3-4 days of increasing shortness of breath and exercise intolerance. Pt reports that he has not taken his medications since discharge because he was waiting for them to be delivered. He has home nursing visits and nurse instructed patient to return to ED due to worsening SOB and LE edema. Of note, chart review indicates pt medications sent to local pharmacy, pt did not follow up with PCP after discharge. Scheduled for cardiology appt with Dr. Fischer tomorrow 03/21/23; PCP visit 03/29/23. Patient seen and evaluated at bedside. NAD. Endorses continued SOB. Patient denies CP, abdominal pain, nausea, vomiting, lightheadedness, dizziness, and diarrhea. Continues to smoke 1PPD. Labs significant for Trop 42.6 (decreased from prior), BNP 315 Imaging: b/l pleural effusions again present, trace L pneumothorax VSS, 3kg weight increase since discharge Allergies Allergy/AdvReac Type Severity Reaction Status Date / Time morphine Allergy Intermediate HIVES Verified 03/20/23 17:00 Home Medications Medication Instructions Recorded Confirmed Type ascorbic acid (vitamin C) 500 mg 500 mg PO QAM ##0 12/03/16 03/20/23 History tablet (Vitamin C) aspirin 81 mg chewable tablet 81 mg PO QAM ##0 12/03/16 03/20/23 History cholecalciferol (vitamin D3) 25 25 mcg PO QAM 90 days #90 tabs 12/03/16 03/20/23 History mcg (1,000 unit) tablet (Vitamin D3) glucosamine sulf dipot 1 cap PO BID ##0 12/03/16 03/20/23 History chlr,msm,chond 550 mg-C 30 mg-mili 1 mg capsule (Glucosamine Chondroitin) multivitamin 1 tab PO QAM #0 tabs 12/03/16 03/20/23 History vitamin B complex 1 tab PO QAM ##0 12/03/16 03/20/23 History atorvastatin 40 mg tablet 40 mg PO QAM 90 days #90 tabs 03/03/23 03/20/23 Rx furosemide 20 mg tablet 20 mg PO DAILY 90 days #90 tabs 03/03/23 03/20/23 Rx metoprolol succinate 50 mg 50 mg PO QAM 90 days #90 tabs 03/03/23 03/20/23 Rx tablet,extended release 24 hr nitroglycerin 0.4 mg sublingual 0.4 mg sublingual Q5M PRN chest 03/03/23 03/20/23 Rx tablet (Nitrostat) pain #60 tabs sacubitril 24 mg-valsartan 26 mg 1 tab PO BID 90 days #180 tabs 03/03/23 03/20/23 Rx tablet (Entresto) spironolactone 25 mg tablet 25 mg PO QAM 90 days #90 tabs 03/03/23 03/20/23 Rx omega-3 fatty acids 1,000 mg 1,000 mg PO DAILY 03/20/23 03/20/23 History capsule Past Med/Surg History Medical History Iatrogenic pneumothorax Tobacco abuse counseling Pleural effusion due to CHF (congestive heart failure) Hip dislocation, left Avascular necrosis of bone of left hip Rupture of bowel Diverticulitis 2006 ruptured Coronary artery disease Surgical History History of colon surgery Perforation from diverticulitis History of hernia surgery History of left hip hemiarthroplasty History of arthroplasty of right shoulder Hx of rotator cuff surgery Hx of cholecystectomy 2002 or 2003 per patient recollection History of coronary artery bypass graft Feb 2016 per patient recollection Social History Smoking Status: Current every day smoker Tobacco Type: Cigarettes Cigarettes Per Day: 1pack; Do You Dip or Chew Tobacco: No; Hx Alcohol Use: No Hx Substance Use: No Preferred Language: Polish Communication Ability: Effective Tile Conduit Layer Required: No Beliefs That Will Affect Care: None Current Living Situation: Alone Current Living Situation Comment: apartment Other Information That Helps Us Care for You: No Feels Safe at Home: Yes Safety Concerns: Feels Safe At This Time Assistive Devices: Glasses Review of Systems Review of Systems: reviewed, per HPI Physical Exam Physical Exam: Constitutional: ill-appearing, no acute distress HEENT: NCAT, no conjunctival injection CV: regular rhythm, extremities well-perfused, 1+ b/l LE edema Resp: decreased breath sounds in b/l lung bases L>R, mildly increased work of breathing, without supplemental oxygen requirement GI: soft, nondistended, nontender MSK: no gross deformities appreciated Skin: warm, dry, no rash appreciated Neuro: alert, oriented, no focal neurologic deficit appreciated Results & Data Results & Data Vital Signs (Past 12 Hours) Vital Signs Temp Pulse Resp BP Pulse Ox O2 Del Method 03/20/23 16:42 80 03/20/23 15:46 96 Room Air 03/20/23 15:45 96 Room Air 03/20/23 15:27 37.1 C 90 20 149/86 H 98 Room Air
[2023-03-20] MEDS ORDERED: ONDANSETRON INJ 2 MG/ML 2 ML VIAL IV PRN (21:55)
[2023-03-20] MEDS ORDERED: POLYETHYLENE (MIRALAX) 17 GM PACK PO PRN (21:55)
[2023-03-20] MEDS ORDERED: NITROGLYCERIN SL 0.4 MG/TAB TAB SL PRN (21:55)
[2023-03-20] MEDS: ENOXAPARIN INJ 40 MG/0.4 ML SYR SQ SCH (23:32)
[2023-03-20] MEDS: NICOTINE 21 MG/24 HR TDSY TD SCH (23:32)
[2023-03-20] MEDS: VALSARTAN/SACUBITRIL 26/24MG TAB PO SCH (23:33)
[2023-03-21] MEDS: ACETAMINOPHEN 325 MG TAB PO PRN (02:18)
--- NOTE | 2023-03-21 07:10 | Hospitalist Progress Note ---
Date of Service March 21, 2023 Assessment & Plan (1) HFrEF (heart failure with reduced ejection fraction): (2) Pleural effusion due to CHF (congestive heart failure): (3) Iatrogenic pneumothorax: (4) Tobacco use disorder: (5) Acute congestive heart failure: Plan 76 yo male PMHx CAD s/p CABG, HFrEF, tobacco use admitted for dyspnea, LE edema and found to have recurrence of b/l pleural effusion #HFrEF w/ exacerbation Last Echo 02/26/23, EF 30-35% BNP on admission 315 Without medication since discharge, pt following up w/ pharmacy himself Lasix 40mg IV daily; hold home PO Lasix (20mg daily) until euvolemic Restart home medications ASA 81 metoprolol succinate 50mg spironolactone 25mg Entresto 26/24mg, cardio looking into getting Entresto [id number] coupon for him during F/U appt Atorvastatin 40mg BNP in AM Strict I/O, daily weights, output ~ 1500 mL today #Pleural Effusion 2/2 CHF Recurrence after resolution at time of discharge Daily CXR Pulm consult if not resolving #Iatrogenic Pneumothorax Small remaining L pneumothorax on CXR No crepitus #Tobacco Use Nicotine patch Tobacco cessation counseling #Social Determinants Health health care access/medication pickup contact Camilla regarding payment info FENGI: Heart Healthy Code status: Full DVT prophylaxis: lovenox Isolation: none Disposition: med tele Admission and Anticipated Discharge Date Admission Date: March 20, 2023 Supervising Physician Co-Signing Physician Notes Attending Physician Supervision Note: I independently interviewed and examined the patient and verified the cook history and physical, reviewed labs and image studies and agree with findings and care plan noted above. Subjective Chief Complaint: Dyspnea, LE edema Primary Care Provider: NO PCP 72 yo M w/ a PMHx HFrEF, CAD s/p CABG in 2017 recently discharged from [facility] 03/03/23 for acute HFrEF exacerbation and b/l pleural effusion. Admitted for 3-4 days of increasing shortness of breath and exercise intolerance. Pt reports that he has not taken his medications since discharge because he was waiting for them to be delivered. He has home nursing visits and nurse instructed patient to return to ED due to worsening SOB and LE edema. Of note, chart review indicates pt medications sent to local pharmacy, pt did not follow up with PCP after discharge. Scheduled for cardiology appt with Dr. Fischer on 03/21/23; PCP visit 03/29/23. Patient seen and evaluated at bedside. NAD. Endorses continued SOB. Patient denies CP, abdominal pain, nausea, vomiting, lightheadedness, dizziness, and diarrhea. Continues to smoke 1PPD. Review of Systems Constitutional: + fatigue and + weakness; no fever and n o chills Respiratory: + cough (productive cough) and + dyspnea Cardiovascular: + chest pain, + radiating jaw, neck or a rm pain, + dyspnea, + orthopnea and + palpitations (intermittently) Gastrointestinal: no abdominal pain, no nausea, no vomiting, no constipation and no diarrhea/loose stools Genitourinary: + urinary frequency (secondary to Lasix) Neurologic: no loss of sensation, no tingling and no numbness Physical Exam Constitutional: WD/WN, vitals as above Respiratory: normal respiratory effort, lungs clear to auscultation Cardiovascular: RRR, no murmur, no edema Extremities: normal capillary refill; no calf tenderness, no pedal edema and no edema Gastrointestinal (Abdomen): normal bowel sounds, soft, nontender, no hepatosplenomegaly Psychiatric: A+Ox3, euthymic affect Results & Data Results & Data Vital Signs (Past 12 Hours) Vital Signs Temp Pulse Pulse Resp BP BP Pulse Ox 03/21/23 03:16 36.6 C 84 20 117/62 94 03/21/23 01:41 03/21/23 00:58 87 03/21/23 00:58 36.6 C 98 H 20 150/54 H 98 03/20/23 23:39 84 22 145/76 H 94 03/20/23 23:08 108 H 03/20/23 22:15 72 03/20/23 21:00 75 22 95 03/20/23 20:36 96 H 03/20/23 20:21 139/83 03/20/23 20:21 78 19 90 03/20/23 20:20 88 23 93 O2 Del Method O2 Flow Rate 03/21/23 03:16 Nasal Cannula 2 03/21/23 01:41 Room Air 03/21/23 00:58 03/21/23 00:58 Room Air 03/20/23 23:39 Room Air 03/20/23 23:08 03/20/23 22:15 03/20/23 21:00 03/20/23 20:36 03/20/23 20:21 03/20/23 20:21 03/20/23 20:20 Resident Activity Tracking Resident Involvement: Resident Care Provided Care Provided: Adult Hospital Medicine
[2023-03-21 07:39] LABS: Basophils # (auto) 0.03 K/uL (0.00-0.20); Basophils % (auto) 0.4 %; Eosinophils # (auto) 0.25 K/uL (0.00-0.50); Eosinophils % (auto) 2.9 %; Hemoglobin 13.4 g/dl (14.0-18.0); Immature Granulocytes # (auto) 0.03 K/uL (0.01-0.20); Immature Granulocytes % (auto) 0.4 %; Lymphocytes % (auto) 17.7 %; Mean Corpuscular Hemoglobin 30.7 pg (25.0-34.0); Mean Corpuscular Hgb Conc 33.5 g/dL (32.0-36.0); Mean Corpuscular Volume 91.7 fL (80.0-100.0); Mean Platelet Volume 11.1 fL (9.4-12.4); Monocytes # (auto) 0.77 K/uL (0.11-0.59); Monocytes % (auto) 9.1 %; Neutrophils # (auto) 5.91 K/uL (1.40-6.50); Neutrophils % (auto) 69.5 %; Platelet Count 352 K/uL (130-400); RDW Coefficient of Variation 14.6 % (11.5-14.5); Red Blood Count 4.36 M/uL (4.70-6.10); White Blood Count 8.49 K/ul (4.8-10.8)
--- NOTE | 2023-03-21 08:00 | Electrocardiogram Report ---
Test Reason : Blood Pressure : / mmHG Vent. Rate : 077 BPM Atrial Rate : 077 BPM P-R Int : 176 ms QRS Dur : 170 ms QT Int : 444 ms P-R-T Axes : 019 043 -75 degrees QTc Int : 502 ms Sinus rhythm with frequent Premature ventricular complexes and Fusion complexes Left bundle branch block Abnormal ECG When compared with ECG of 20-MAR-2023 16:01, Sinus rhythm has replaced Atrial fibrillation Confirmed by Reji Mulligan ([id number]) on 03/21/2023 7:59:58 AM Referred By: REFERRED SELF Confirmed By:Reji Mulligan
[2023-03-21 08:03] LABS: BUN Creatinine Ratio 26.7 (10-20); Creatinine Clr Calc Pharmacy 81.7 ml/min; Est GFR (African American) 100.4 ml/min; Est GFR (Non-African American) 86.6 ml/min; Potassium 3.8 mmol/L (3.5-5.1)
--- NOTE | 2023-03-21 08:14 | Electrocardiogram Report ---
Test Reason : Blood Pressure : / mmHG Vent. Rate : 083 BPM Atrial Rate : 083 BPM P-R Int : 190 ms QRS Dur : 172 ms QT Int : 454 ms P-R-T Axes : 065 -11 163 degrees QTc Int : 533 ms Sinus rhythm with Premature supraventricular complexes and Fusion complexes Left bundle branch block Abnormal ECG When compared with ECG of 20-MAR-2023 16:09, No significant change Confirmed by Reji Mulligan ([id number]) on 03/21/2023 8:13:58 AM Referred By: REFERRED SELF Confirmed By:Reji Mulligan
--- NOTE | 2023-03-21 08:17 | Electrocardiogram Report ---
Test Reason : Blood Pressure : / mmHG Vent. Rate : 066 BPM Atrial Rate : 066 BPM P-R Int : 168 ms QRS Dur : 164 ms QT Int : 512 ms P-R-T Axes : 000 -64 104 degrees QTc Int : 536 ms Sinus rhythm with Premature supraventricular complexes and with frequent Premature ventricular comple xes with ventricular escape complexes Left bundle branch block Abnormal ECG When compared with ECG of 20-MAR-2023 22:23, No significant change Confirmed by Reji Mulligan ([id number]) on 03/21/2023 8:16:28 AM Referred By: REFERRED SELF Confirmed By:Reji Mulligan
[2023-03-21] MEDS: VITAMIN B COMPLEX TAB PO SCH (09:01)
[2023-03-21] MEDS: FUROSEMIDE 40 MG/4 ML VIAL IV SCH (09:01)
[2023-03-21] MEDS: METOPROLOL SUCC 50MG EXT REL TAB PO SCH (09:02)
[2023-03-21] MEDS: CHOLECALCIFEROL 25 MCG (1000 UNITS) TAB PO SCH (09:02)
[2023-03-21] MEDS: MULTIVITAMIN TAB PO SCH (09:02)
[2023-03-21] MEDS: SPIRONOLACTONE 25 MG TAB PO SCH (09:02)
[2023-03-21] MEDS: ATORVASTATIN 40 MG TAB PO SCH (09:02)
[2023-03-21] MEDS: ASCORBIC ACID 500 MG TAB PO SCH (09:02)
[2023-03-21] MEDS: ASPIRIN 81 MG ECTAB PO SCH (09:02)
[2023-03-21] MEDS: OMEGA-3 (PURIFIED FISH OIL) 1 GM CAP PO SCH (09:02)
--- NOTE | 2023-03-21 10:35 | Cardiology Consultation ---
Date of Consultation March 21, 2023 Assessment & Plan (1) HFrEF (heart failure with reduced ejection fraction): Plan Pmhx: 1. Left bundle-branch block. A. Severe left main and 3-vessel coronary artery disease. B. CABG x4 with KRISHNAN to LAD, SVG to the diagonal, SVG to the marginal and SVG to the PDA 04/2016. 2. History of vazgdwry-us-pdfigl left ventricular dysfunction preoperatively with an EF in the range of 30-35%; echo 08/2016 with qanj-qx-sslwkuma left ventricular dysfunction and an EF in the range of 35-40%. 3. Type 1 diastolic dysfunction with normal left atrial pressures. 4. Emphysema. 5. Longstanding tobacco abuse 6. Significant alcohol abuse, self-described as an alcoholic. 7. Status post removal of basal cell carcinoma on his face. 8. INTOLERANCE TO BOTH JEREMY INHIBITORS AND ANGIOTENSIN RECEPTOR BLOCKERS, DESCRIBING SIGNIFICANT FATIGUE AND FEELING POORLY. 9. Pulmonary nodule. 10. Negative abdominal ultrasound for abdominal aortic aneurysm 11/2016. 11. Iatrogenic pneumothorax 12. Pleural effusion Mr. Patel is in heart failure again with elevated bnp and bilateral pleural effusions. He has put out 1300 mls since admission. Continue IV furosemide until BUN becomes elevated. He has resumed Entresto, spironolactone and metoprolol. He did not want to start Entresto at discharge as he cannot afford it. However, our office had been working on getting him assistance from the [employer] but he never brought the required information to complete the application. He would also benefit from the one month free coupon that could be organized for him by case management before he leaves. He should have an SGLT2 added to his regimen but he is unlikely to be able to afford it. If at all possible, discharge with home packs of medications would be helpful. He should maintain a low salt diet and quit smoking. We can discuss outpatient further whether cardiac catheterization and/or ICD/BiV would be beneficial for him. We have concerns about his ability to be compliant with medications following any intervention. His mild troponin elevation is likely due heart failure. He is not having any ischemic symptoms. He is on appropriate CAD medications. He was initiated on atorvastatin but this can be changed to pravastatin at discharge as a 90 day supply is on the $10 list for him as he is having trouble paying for his medications. His blood pressure is stable. He should follow up with the cardiology clinic within a few weeks of discharge. History of Present Illness Attending Physician: Norah Massey MD History of Present Illness Mr. Patel was discharged from [facility] on 03/03 after new diagnosis of heart failure. He was diuresed and discharged on appropriate heart failure regimen. He did not ever start these medications as he has no car and had some difficulty getting the delivery service from [facility]. Since then he has become increasingly more sob with abdominal distention. He notes that it feels just the same as last time. No chest pain. No palpitations. Allergies Allergy/AdvReac Type Severity Reaction Status Date / Time morphine Allergy Intermediate HIVES Verified 03/20/23 17:00 Home Medications Medication Instructions Recorded Confirmed Type ascorbic acid (vitamin C) 500 mg 500 mg PO QAM ##0 12/03/16 03/20/23 History tablet (Vitamin C) aspirin 81 mg chewable tablet 81 mg PO QAM ##0 12/03/16 03/20/23 History cholecalciferol (vitamin D3) 25 25 mcg PO QAM 90 days #90 tabs 12/03/16 03/20/23 History mcg (1,000 unit) tablet (Vitamin D3) glucosamine sulf dipot 1 cap PO BID ##0 12/03/16 03/20/23 History chlr,msm,chond 550 mg-C 30 mg-mili 1 mg capsule (Glucosamine Chondroitin) multivitamin 1 tab PO QAM #0 tabs 12/03/16 03/20/23 History vitamin B complex 1 tab PO QAM ##0 12/03/16 03/20/23 History atorvastatin 40 mg tablet 40 mg PO QAM 90 days #90 tabs 03/03/23 03/20/23 Rx furosemide 20 mg tablet 20 mg PO DAILY 90 days #90 tabs 03/03/23 03/20/23 Rx metoprolol succinate 50 mg 50 mg PO QAM 90 days #90 tabs 03/03/23 03/20/23 Rx tablet,extended release 24 hr nitroglycerin 0.4 mg sublingual 0.4 mg sublingual Q5M PRN chest 03/03/23 03/20/23 Rx tablet (Nitrostat) pain #60 tabs sacubitril 24 mg-valsartan 26 mg 1 tab PO BID 90 days #180 tabs 03/03/23 03/20/23 Rx tablet (Entresto) spironolactone 25 mg tablet 25 mg PO QAM 90 days #90 tabs 03/03/23 03/20/23 Rx omega-3 fatty acids 1,000 mg 1,000 mg PO DAILY 03/20/23 03/20/23 History capsule Patient History Medical History Iatrogenic pneumothorax Tobacco abuse counseling Pleural effusion due to CHF (congestive heart failure) Hip dislocation, left Avascular necrosis of bone of left hip Rupture of bowel Diverticulitis 2006 ruptured Coronary artery disease Surgical History History of colon surgery Perforation from diverticulitis History of hernia surgery History of left hip hemiarthroplasty History of arthroplasty of right shoulder Hx of rotator cuff surgery Hx of cholecystectomy 2002 or 2003 per patient recollection History of coronary artery bypass graft Feb 2016 per patient recollection Social History Smoking Status: Current every day smoker Tobacco Type: Cigarettes Cigarettes Per Day: 1pack; Do You Dip or Chew Tobacco: No; Hx Alcohol Use: No Hx Substance Use: No Preferred Language: Gambian Communication Ability: Effective Cutter Head Sharpener Required: No Beliefs That Will Affect Care: None Current Living Situation: Alone Current Living Situation Comment: apartment Other Information That Helps Us Care for You: No Feels Safe at Home: Yes Safety Concerns: Feels Safe At This Time Assistive Devices: Glasses Review of Systems Review of Systems: All systems reviewed & are unremarkable except as noted in HPI & below Physical Exam Constitutional: WD/WN, vitals as above Respiratory: normal respiratory effort, lungs clear to auscultation Cardiovascular: RRR, no murmur, no edema Skin: no rashes, warm and dry Neurologic: moves all extremities and awake Psychiatric: A+Ox3, euthymic affect Results & Data Vital Signs (Past 12 Hours) Vital Signs Temp Pulse Pulse Resp BP Pulse Ox O2 Del Method 03/21/23 07:59 36.7 C 87 16 118/75 92 Room Air 03/21/23 03:16 36.6 C 84 20 117/62 94 Nasal Cannula 03/21/23 01:41 Room Air 03/21/23 00:58 87 03/21/23 00:58 36.6 C 98 H 20 150/54 H 98 Room Air 03/20/23 23:39 84 22 145/76 H 94 Room Air 03/20/23 23:08 108 H O2 Flow Rate 03/21/23 07:59 03/21/23 03:16 2 03/21/23 01:41 03/21/23 00:58 03/21/23 00:58 03/20/23 23:39 03/20/23 23:08
--- NOTE | 2023-03-21 11:05 | Billing Data ---
Date of Service March 20, 2023 Coding Level of Care Code 23881 INT INP/OBS CARE
[2023-03-22] MEDS: MELATONIN 3 MG TAB PO PRN (01:45)
--- NOTE | 2023-03-22 09:49 | Cardiology Progress Note ---
Date of Service March 22, 2023 Assessment & Plan Admission and Anticipated Discharge Date Admission Date: March 20, 2023 Subjective He still feels short of breath even though he is down 2-1/2 kg of water weight. He denies any lightheadedness or dizziness. He notes he has episodes that last 30 seconds to a minute where he gets short of breath and then gets anxious. Has no chest discomfort or chest pressure currently. He does feel short of breath lying flat. He has no lower extremity edema. He denied any increased abdominal distention. He is short of breath just going to the commode in the room. His appetite is better than it was at home. Results & Data Vital Signs (Past 12 Hours) Vital Signs Temp Pulse Pulse Resp BP Pulse Ox O2 Del Method 03/22/23 07:25 36.6 C 58 L 16 115/55 L 91 Room Air 03/22/23 02:33 36.8 C 63 20 98/55 L 95 Nasal Cannula 03/21/23 23:01 65 03/21/23 22:59 36.8 C 77 20 94/54 L 94 Nasal Cannula O2 Flow Rate 03/22/23 07:25 03/22/23 02:33 2 03/21/23 23:01 03/21/23 22:59 2 he is awake alert and oriented x 3. He looks older than his stated age and looks chronically ill with temporal wasting HEENT: Significantly reduced carotid upstrokes Lungs: Globally decreased breath sounds especially in the bases bilaterally Heart: Regular rate and rhythm no appreciable murmurs Abdomen: Soft nontender mildly distended positive bowel sounds Extremities: Decreased skin turgor with very dry skin Psychiatric: Appears upset and at times angry Neurologic he is moving all extremities. His telemetry strips, echocardiogram, laboratory studies, and EKGs have been reviewed. IMPRESSIONS: 1. Left bundle-branch block. A. Severe left main and 3-vessel coronary artery disease. B. CABG x4 with KRISHNAN to LAD, SVG to the diagonal, SVG to the marginal and SVG to the PDA 04/2016. 2. History of vusumegr-ii-zfixri left ventricular dysfunction preoperatively with an EF in the range of 30-35%; echo 08/2016 with xwkj-bh-nraskody left ventricular dysfunction and an EF in the range of 35-40%. 3. Type 1 diastolic dysfunction with normal left atrial pressures. 4. Emphysema. 5. Longstanding tobacco abuse 6. Significant alcohol abuse, self-described as an alcoholic. 7. Status post removal of basal cell carcinoma on his face. 8. INTOLERANCE TO BOTH JEREMY INHIBITORS AND ANGIOTENSIN RECEPTOR BLOCKERS, DESCRIBING SIGNIFICANT FATIGUE AND FEELING POORLY. 9. Pulmonary nodule. 10. Negative abdominal ultrasound for abdominal aortic aneurysm 11/2016. 11. Iatrogenic pneumothorax 12. Pleural effusion After his hospitalization 3 weeks ago he did not get any of his medications from the pharmacy. We had contacted Nicole and arranged for all of his medications as well as him to get Entresto for 30 days free. Nicole States that he never gave them a credit card to process the prescriptions. Therefore they were never delivered and even though he had home nursing still did not get his medications. In essence he was home with no medications for 3 weeks. We had a very honest conversation. At this point life is about choices and unfortunately he has made some poor choices. He stopped all his medications before his initial hospitalization over a 5-year period of time and had not had any follow-up. And again he did not fill his medications when he left here. He notes more more usually delivers his food for him. We restarted all of his heart failure medications. I am concerned that he has a left bundle branch block and has very frequent ventricular ectopy. At times it almost looks like in sinus rhythm he has a left bundle and then he has a different morphology while in sinus rhythm as well. The question is whether we should consider placement a BiV ICD. The question is repeat cardiac catheterization as his bypass grafts were placed in 2017 and prior to his January hospitalization he had not taken any meds in the previous 3 to 5 years. The challenge would be I do not think angioplasty and stenting is a great option for him given his noncompliance and the risk of acute stent thrombosis with medication non compliance. I have asked the EP service to see him to make their recommendation. There is not a lot of room to uptitrate his beta-blockers given his heart rate of 58. His sodium is improved and his creatinine is stable at this point. I would continue with his IV diuretics and the rest of his heart failure regimen. Unfortunately the patient's at a the fork in the road. And as I discussed with him he needs to be a partner in his care if he wants to do and feel better. Further recommendations will be forthcoming.
[2023-03-22 10:52] LABS: Calcium 8.7 mg/dl (8.6-10.3); Creatinine Clr Calc Pharmacy 72.9 ml/min; Est GFR (Non-African American) 77.7 ml/min; Potassium 3.9 mmol/L (3.5-5.1)
--- NOTE | 2023-03-22 14:20 | XRay Report ---
PA, LATERAL AND BILATERAL LATERAL DECUBITUS RADIOGRAPHS OF THE CHEST WERE OBTAINED CLINICAL HISTORY: shortness of breath, cough, assess pleural effusion COMPARISON STUDY: Chest radiograph March 20, 2023. Chest CT February 25, 2023. FINDINGS: There is no pneumothorax. Moderate left and small right layering pleural effusions are pres ent. There is no evidence for pulmonary edema. Cardiomegaly is unchanged. There are median sternotomy wires and mediastinal surgical clips. IMPRESSION: 1. Moderate left and small right pleural effusions. 2. No pneumothorax. ACT 112: Negative or not required by law. Electronically signed by: Americo Bill M.D. 03/22/2023 2:19 PM
--- NOTE | 2023-03-22 17:19 | Cardiology Consultation ---
Date of Consultation March 22, 2023 Assessment & Plan (1) Ischemic cardiomyopathy: (2) Coronary artery disease: (3) HFrEF (heart failure with reduced ejection fraction): (4) Left bundle branch block: Plan 1. Ischemic cardiomyopathy: He has a longstanding history of reduced LV systolic function. Apparently well compensated until recently. Much of this is due to medical noncompliance. However, his LV dysfunction is severe enough that he would meet criteria for an ICD as primary prevention against sudden cardiac . Despite medical therapy for many years the LV function continues to be poor. He has [place] heart [employer] class 3 symptoms. He has not had an myocardial infarction in the past 40 days nor revascularization in the last 90 days. He is anticipated longevity greater than 1 year. As such, I believe he meets criteria for an ICD. 2. Acute decompensated congestive heart failure: He appears to be improving. He seems to have affected a good diuresis over the past couple of days. He seems more comfortable on examination. Will continue to monitor his renal function and urinary output. Medical therapy has been reinstituted with metoprolol succinate, Entresto and spironolactone. 3. Left bundle-branch block: He has left bundle branch block at baseline with QRS duration greater than 150 milliseconds. Of patients or likely benefit from cardiac resynchronization therapy. I think he qualifies for a prophylactic ICD as noted above should implant a biventricular device. I think an ICD with left bundle pacing lead would also be satisfactory depending on the results. Unfortunately, he appears to have a significant amount of ventricular ectopy which may compromise the effectiveness of SERVICE LINE COORDINATOR. Perhaps with reinstitution of his medical therapy and treatment of his heart failure will see less ventricular ectopy. 4. Coronary disease: No current symptoms suggestive of coronary insufficiency. No evidence of ischemia elevated at the time of his last admission. Unlikely to represent an acute coronary syndrome. As noted by Dr. sunny scott again, compliance is a significant issue for this patient and re-evaluation of the coronaries with any hope of intervention would be compromised by long-term compliance issues. No plans for re-evaluation. I did speak to the patient with regards to the utility of an ICD and SERVICE LINE COORDINATOR. I described the procedure and attendant risks. Also discussed the option of no implant in the risks associated without an ICD. Using shared decision-making we came to the conclusion the at an ICD is desirable and will plan on arranging the procedure. History of Present Illness Reason for Consultation: Cardiomyopathy, left bundle branch block Requesting Physician: Amado Attending Physician: Norah Massey MD History of Present Illness The patient is a 72-year-old gentleman with a history of coronary artery disease having previously undergone surgical revascularization in 2017. He was noted that time to have reduced LV systolic function but appeared to be well compensated for several years. In February of this year the patient was admitted to hospital with evidence decompensated congestive heart failure. This appeared to be due to medication noncompliance. Patient underwent diuresis and reestablishment of medical therapy with discharge to home. However, he again failed to take medications for his cardiomyopathy and heart failure he returned to the hospital with similar symptoms of dyspnea and hypervolemia. At time my interview the patient states that his breathing is improved but he still has an element of shortness of breath. He denies symptoms of chest pain recently. He denies dizziness or lightheadedness. He cannot recall recent episode of syncope or notable palpitations. Allergies Allergy/AdvReac Type Severity Reaction Status Date / Time morphine Allergy Intermediate HIVES Verified 03/20/23 17:00 Home Medications Medication Instructions Recorded Confirmed Type ascorbic acid (vitamin C) 500 mg 500 mg PO QAM ##0 12/03/16 03/20/23 History tablet (Vitamin C) aspirin 81 mg chewable tablet 81 mg PO QAM ##0 12/03/16 03/20/23 History cholecalciferol (vitamin D3) 25 25 mcg PO QAM 90 days #90 tabs 12/03/16 03/20/23 History mcg (1,000 unit) tablet (Vitamin D3) glucosamine sulf dipot 1 cap PO BID ##0 12/03/16 03/20/23 History chlr,msm,chond 550 mg-C 30 mg-mili 1 mg capsule (Glucosamine Chondroitin) multivitamin 1 tab PO QAM #0 tabs 12/03/16 03/20/23 History vitamin B complex 1 tab PO QAM ##0 12/03/16 03/20/23 History atorvastatin 40 mg tablet 40 mg PO QAM 90 days #90 tabs 03/03/23 03/20/23 Rx furosemide 20 mg tablet 20 mg PO DAILY 90 days #90 tabs 03/03/23 03/20/23 Rx metoprolol succinate 50 mg 50 mg PO QAM 90 days #90 tabs 03/03/23 03/20/23 Rx tablet,extended release 24 hr nitroglycerin 0.4 mg sublingual 0.4 mg sublingual Q5M PRN chest 03/03/23 03/20/23 Rx tablet (Nitrostat) pain #60 tabs sacubitril 24 mg-valsartan 26 mg 1 tab PO BID 90 days #180 tabs 03/03/23 03/20/23 Rx tablet (Entresto) spironolactone 25 mg tablet 25 mg PO QAM 90 days #90 tabs 03/03/23 03/20/23 Rx omega-3 fatty acids 1,000 mg 1,000 mg PO DAILY 03/20/23 03/20/23 History capsule Patient History Medical History (Updated 03/23/23 @ 07:35 by James Beltre MD) Coronary artery disease Iatrogenic pneumothorax Tobacco abuse counseling Pleural effusion due to CHF (congestive heart failure) Hip dislocation, left Avascular necrosis of bone of left hip Rupture of bowel Diverticulitis 2006 ruptured Surgical History History of colon surgery Perforation from diverticulitis History of hernia surgery History of left hip hemiarthroplasty History of arthroplasty of right shoulder Hx of rotator cuff surgery Hx of cholecystectomy 2002 or 2003 per patient recollection History of coronary artery bypass graft Feb 2016 per patient recollection Social History Smoking Status: Current every day smoker Tobacco Type: Cigarettes Cigarettes Per Day: 1pack; Do You Dip or Chew Tobacco: No; Hx Alcohol Use: No Hx Substance Use: No Preferred Language: Guinean Communication Ability: Effective Gum Machine Operator Required: No Beliefs That Will Affect Care: None Current Living Situation: Alone Current Living Situation Comment: apartment Other Information That Helps Us Care for You: No Feels Safe at Home: Yes Safety Concerns: Feels Safe At This Time Assistive Devices: None Review of Systems Review of Systems: Per HPI. Physical Exam Physical Exam: The patient is alert and oriented. Mood and affect appeared normal. He answered all questions appropriately. HEENT: Pupils are equal and reactive to light and accommodation. Extraocular movements are intact. The sclerae are anicteric. Neuro: Cranial nerves intact Lungs: Clear to auscultation bilaterally. Some reduced breath sounds at the left base He has good air movement without use of accessory muscles. No rales wheezes or rhonchi. Cardiac: Heart demonstrates a regular rhythm with frequent ectopy Normal S1 and S2. No murmurs on examination. Pulses: The patient has palpable radial pulses bilaterally that are equal in intensity Extremities: There was no evidence of hypoperfusion. There is no cyanosis or clubbing. There is no edema. Skin: I did not appreciate any rashes on examination today. Results & Data Vital Signs (Past 12 Hours) Vital Signs Temp Pulse Pulse Resp BP Pulse Ox O2 Del Method 03/22/23 15:16 62 03/22/23 14:41 36.6 C 59 L 19 120/57 L 93 Room Air 03/22/23 11:41 36.6 C 74 20 113/69 94 Room Air 03/22/23 08:00 63 03/22/23 07:25 36.6 C 58 L 16 115/55 L 91 Room Air Laboratory Results Abnormal Lab Results 03/22/23 10:09 Sodium 137 Potassium 3.9 Chloride 106 Carbon Dioxide 24 Anion Gap 7 BUN 32 H Creatinine 0.97 Est Cr Clr Drug Dosing 72.9 Est GFR ( Amer) 90.0 Est GFR (Non-Af Amer) 77.7 BUN/Creatinine Ratio 33.0 H Glucose 117 H Calcium 8.7 Diagnostic Findings 02/26/2023: Mildly dilated left ventricle with moderate to severely reduced LV systolic function ejection fraction 30 35%. Severe hypokinesis involving the inferior wall. Moderate LVH. Moderately reduced RV systolic function. Mild mitral regurgitation. 03/22/2023: Moderate left and small right pleural effusions. No pneumothorax. No evidence for pulmonary edema. ECG Additional Comments: EKG demonstrates sinus rhythm with frequent ventricular ectopy and left bundle branch block pattern PG Care Time/CCT Total # of Minutes Spent Total Time Spent with Patient: Total time spent is greater than 50% in coordination of care (as documented) at patient's floor/unit and/or counseling patient: Coding Level of Care Code 41206 INT INP/OBS CARE 3/75MIN Diagnoses Ischemic cardiomyopathy I25.5 Coronary artery disease I25.10 HFrEF (heart failure with reduced ejection fraction) I50.20 Left bundle branch block I44.7
--- NOTE | 2023-03-22 18:03 | Hospitalist Progress Note ---
Date of Service March 22, 2023 Assessment & Plan (1) HFrEF (heart failure with reduced ejection fraction): (2) Pleural effusion due to CHF (congestive heart failure): (3) Iatrogenic pneumothorax: (4) Tobacco use disorder: (5) Acute congestive heart failure: Plan 76 yo male PMHx CAD s/p CABG, HFrEF, tobacco use admitted for dyspnea, LE edema and found to have recurrence of b/l pleural effusion #HFrEF w/ exacerbation Last Echo 02/26/23, EF 30-35% BNP on admission 315 Without medication since discharge, pt following up w/ pharmacy himself Lasix 40mg IV daily; hold home PO Lasix (20mg daily) until euvolemic Restart home medications ASA 81 metoprolol succinate 50mg spironolactone 25mg Entresto 26/24mg, cardio looking into getting Entresto [id number] coupon for him during F/U appt Atorvastatin 40mg BNP daily Strict I/O, daily weights, output ~ 1500 mL today Cardiology consulted: placement of a BiV ICD under consideration due to LBBB and frequent ventricular ectopy as well as a repeat cardiac catheterization as p revious bypass grafts done in 2017 and patient has been intermittently non- compliant with medication #Pleural Effusion 2/2 CHF Recurrence after resolution at time of discharge Daily CXR: moderate left and small right pleural effusions If no improvement, could consider thoracocentesis Pulm consult if not resolving #Iatrogenic Pneumothorax Small remaining L pneumothorax on CXR No crepitus #Tobacco Use Nicotine patch Tobacco cessation counseling #Social Determinants Health health care access/medication pickup contact Camilla regarding payment info FENGI: [facility] Code status: Full DVT prophylaxis: lovenox Isolation: none Disposition: med tele Admission and Anticipated Discharge Date Admission Date: March 20, 2023 Supervising Physician Co-Signing Physician Notes Attending Physician Supervision Note: I independently interviewed and examined the patient and verified the cook history and physical, reviewed labs and image studies and agree with findings and care plan noted above. persistent shortness of breath. some cough. no chest pressure vitals noted nad heent nc at mmm breathing unlabored no accessory muscles good effort skin no rashes no pallor or icterus neuro no focal deficits. lungs - decreased breath sounds at base. Acute HFrEF Bilateral pleural effusion -Neg 2 L fluid. continue diuresis. continue other meds - entresto, metoprolol, spironolactone. follow bmp. -Chest Xray reordered this am - considering persistent shortness of breath - consult pulmonary for considering thoracentesis. Subjective Chief Complaint: Dyspnea, LE edema Primary Care Provider: CHANEL PCP 72 yo male PMHx HFrEF, CAD s/p CABG in [address] [facility] 03/03/23 for acute HFrEF exacerbation and b/l pleural effusion. Admitted for 3-4 days of increasing shortness of breath and exercise intolerance. Pt reports that he has not taken his medications since discharge because he was waiting for them to be delivered. He has home nursing visits and nurse instructed patient to return to ED due to worsening SOB and LE edema. Endorsed continued SOB. Patient denied CP, abdominal pain, nausea, vomiting, lightheadedness, dizziness, and diarrhea. Continues to smoke 1PPD. Patient with 3kg weight increase since discharge. This morning, patient continues to feel mild/moderate dyspnea at rest, increased dyspnea with activity. Still feels less dyspneic when sitting up in bed. Patient does not endorse any chest pain or tightness today; also does not endorse any edema in feet/ankles/calves. Review of Systems Review of Systems: reviewed, per HPI Constitutional: + fatigue and + weakness; no fever and n o chills Respiratory: + cough (productive cough) and + dyspnea Cardiovascular: + dyspnea and + orthopnea; no chest pain , no radiating jaw, neck or arm pain and no palpitations (intermittently) Gastrointestinal: no abdominal pain, no nausea, no vomiting, no constipation and no diarrhea/loose stools Genitourinary: + urinary frequency (secondary to Lasix) Neurologic: no loss of sensation, no tingling and no numbness Physical Exam Constitutional: WD/WN, vitals as above Respiratory: normal respiratory effort, lungs clear to auscultation Cardiovascular: RRR, no murmur, no edema Extremities: normal capillary refill; no calf tenderness, no pedal edema and no edema Gastrointestinal (Abdomen): normal bowel sounds, soft, nontender, no hepatosplenomegaly Psychiatric: A+Ox3, euthymic affect Results & Data Results & Data Vital Signs (Past 12 Hours) Vital Signs Temp Pulse Pulse Resp BP Pulse Ox O2 Del Method 03/22/23 15:16 62 03/22/23 14:41 36.6 C 59 L 19 120/57 L 93 Room Air 03/22/23 11:41 36.6 C 74 20 113/69 94 Room Air 03/22/23 08:00 63 03/22/23 07:25 36.6 C 58 L 16 115/55 L 91 Room Air
--- NOTE | 2023-03-23 07:15 | Hospitalist Progress Note ---
Date of Service March 23, 2023 Assessment & Plan (1) HFrEF (heart failure with reduced ejection fraction): (2) Pleural effusion due to CHF (congestive heart failure): (3) Iatrogenic pneumothorax: (4) Tobacco use disorder: (5) Acute congestive heart failure: Plan 76 yo male PMHx CAD s/p CABG, HFrEF, tobacco use admitted for dyspnea, LE edema and found to have recurrence of b/l pleural effusion #HFrEF w/ exacerbation Last Echo 02/26/23, EF 30-35% BNP on admission 315 Without medication since discharge, pt following up w/ pharmacy himself Lasix 40mg IV daily; holding home PO Lasix (20mg daily) until euvolemic Restarted home medications ASA 81 metoprolol succinate 50mg spironolactone 25mg Entresto 26/24mg, cardio looking into getting Entresto [id number] coupon for him during F/U appt Atorvastatin 40mg Strict I/O, daily weights, output ~ 1500 mL today Cardiology consulted: placement of a BiV ICD under consideration due to LBBB and frequent ventricular ectopy as well as a repeat cardiac catheterization as previous bypass grafts done in 2016 and patient has been intermittently non- compliant with medication; tentatively planning for ICD placement on Saturday contingent upon patient's clinical symptoms and picture #Pleural Effusion 2/2 CHF Recurrence after resolution at time of discharge Daily CXR: moderate left and small right pleural effusions If no improvement, could consider thoracocentesis Pulm consult if not resolving #Iatrogenic Pneumothorax Small remaining L pneumothorax on CXR No crepitus #Tobacco Use Nicotine patch Tobacco cessation counseling #Social Determinants Health health care access/medication pickup patient contacted Camilla regarding payment ANGELITO murrell: [facility] Healthy Code status: Full DVT prophylaxis: lovenox Isolation: none Disposition: med tele Admission and Anticipated Discharge Date Admission Date: March 20, 2023 Supervising Physician Co-Signing Physician Notes Attending Physician Supervision Note: I independently interviewed and examined the patient and verified the cook history and physical, reviewed labs and image studies and agree with findings and care plan noted above. breathing better this am. vitals noted nad heent nc at mmm breathing unlabored no accessory muscles good effort skin no rashes no pallor or icterus neuro no focal deficits. lungs - decreased breath sounds at base. Acute HFrEF Bilateral pleural effusion -No UO documented but symptomatically better. Creatinine stable. -continue diuresis. continue other meds - entresto, metoprolol, spironolactone. follow bmp. 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 Admitted for 3-4 days of increasing shortness of breath and exercise intolerance. Pt reports that he has not taken his medications since discharge because he was waiting for them to be delivered. He has home nursing visits and nurse instructed patient to return to ED due to worsening SOB and LE edema. Endorsed continued SOB. Patient denied CP, abdominal pain, nausea, vomiting, lightheadedness, dizziness, and diarrhea. Continues to smoke 1PPD. Patient with 3kg weight increase since discharge. This morning, patient continues to feel mild/moderate dyspnea at rest, increased dyspnea with even very little activity. Still feels less dyspneic when sitting up in bed. Patient does not endorse any chest pain today; also does not endorse any edema in feet/ankles/calves, normal capillary refill, no other complaints beyond the dyspnea and decreased stamina that brought him into hospital. Review of Systems Review of Systems: reviewed, per HPI Constitutional: + fatigue and + weakness; no fever and n o chills Respiratory: + cough (productive cough) and + dyspnea Cardiovascular: + dyspnea and + orthopnea; no chest pain , no radiating jaw, neck or arm pain and no palpitations (intermittently) Gastrointestinal: no abdominal pain, no nausea, no vomiting, no constipation and no diarrhea/loose stools Genitourinary: + urinary frequency (secondary to Lasix) Neurologic: no loss of sensation, no tingling and no numbness Physical Exam Constitutional: WD/WN, vitals as above Respiratory: normal respiratory effort, lungs clear to auscultation Cardiovascular: RRR, no murmur, no edema Vessels: no JVD Extremities: normal capillary refill; no calf tenderness, no pedal edema and no edema Gastrointestinal (Abdomen): normal bowel sounds, soft, nontender, no hepatosplenomegaly Psychiatric: A+Ox3, euthymic affect Results & Data Results & Data Vital Signs (Past 12 Hours) Vital Signs Temp Pulse Pulse Resp BP Pulse Ox O2 Del Method 03/23/23 03:10 36.5 C 64 20 110/70 96 Nasal Cannula 03/22/23 23:19 63 03/22/23 22:59 36.7 C 64 20 95/54 L 96 Room Air 03/22/23 19:40 Room Air 03/22/23 19:31 36.6 C 68 20 98/54 L 93 Room Air O2 Flow Rate 03/23/23 03:10 2 03/22/23 23:19 03/22/23 22:59 03/22/23 19:40 03/22/23 19:31 Resident Activity Tracking Resident Involvement: Resident Care Provided Care Provided: Adult Hospital Medicine
[2023-03-23 07:46] LABS: BUN Creatinine Ratio 32.6 (10-20); Calcium 8.6 mg/dl (8.6-10.3); Creatinine Clr Calc Pharmacy 81.5 ml/min; Est GFR (African American) 100.4 ml/min; Est GFR (Non-African American) 86.6 ml/min
--- NOTE | 2023-03-23 11:44 | Cardiology Progress Note ---
Date of Service March 23, 2023 Assessment & Plan (1) Ischemic cardiomyopathy: (2) Coronary artery disease: (3) HFrEF (heart failure with reduced ejection fraction): (4) Left bundle branch block: Plan 1. Ischemic cardiomyopathy: Continue outpatient medical regimen consisting of metoprolol succinate , spironolactone and Entresto 2. Acute decompensated congestive heart failure: His exam is not consistent with severe pulmonary vascular congestion. Effusions noted on his x-ray. However, he does describe symptoms of orthopnea. Given the normal renal function would seem reasonable to continue diuresis. Unclear balance yesterday as no output was recorded. 3. 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 Coronary disease: No current symptoms suggestive of angina or ischemia. Will continue aggressive secondary prevention. I provided the patient with some literature regarding a biventricular ICD. Hopefully over the next 48 hours will have some improvement in his symptoms. Tentatively we could plan for an implant on Saturday. Admission and Anticipated Discharge Date Admission Date: March 20, 2023 Subjective This morning the patient claims to have worsening orthopnea. He was trying to rest and had some difficulty breathing while lying flat. He claims to [facility]. Some mild dizziness. No sense of palpitation. No chest pain. Review of Systems Review of Systems: Per HPI Physical Exam Physical Exam: The patient is alert and oriented. Mood and affect appeared normal. He answered all questions appropriately. HEENT: Pupils are equal and reactive to light and accommodation. Extraocular movements are intact. The sclerae are anicteric. Neuro: Cranial nerves intact Lungs: Mildly reduced breath sounds at the left base. No rales. No expiratory wheezing. Normal respiratory effort. Cardiac: Regular rhythm with frequent ectopy. Normal S1 and S2. No murmurs on examination. Pulses: The patient has palpable radial pulses bilaterally that are equal in intensity Extremities: There was no evidence of hypoperfusion. There is no cyanosis or clubbing. There is no edema. Skin: I did not appreciate any rashes on examination today. Results & Data Vital Signs (Past 12 Hours) Vital Signs Temp Pulse Resp BP Pulse Ox O2 Del Method O2 Flow Rate 03/23/23 08:12 36.8 C 61 18 92/52 L 94 Room Air 03/23/23 08:00 Nasal Cannula 2 03/23/23 03:10 36.5 C 64 20 110/70 96 Nasal Cannula 2 Laboratory Results Abnormal Lab Results 03/23/23 06:21 Sodium 137 Potassium 4.0 Chloride 107 Carbon Dioxide 23 Anion Gap 7 BUN 28 H Creatinine 0.86 Est Cr Clr Drug Dosing 81.5 Est GFR ( Amer) 100.4 Est GFR (Non-Af Amer) 86.6 BUN/Creatinine Ratio 32.6 H Glucose 97 Calcium 8.6 PG Care Time/CCT Total # of Minutes Spent Total Time Spent with Patient: Total time spent is greater than 50% in coordination of care (as documented) at patient's floor/unit and/or counseling patient: Coding Level of Care Code 39787 SUB INP/OBS CARE 2/35MIN Diagnoses Ischemic cardiomyopathy I25.5 Coronary artery disease I25.10 HFrEF (heart failure with reduced ejection fraction) I50.20 Left bundle branch block I44.7
--- NOTE | 2023-03-24 06:55 | Hospitalist Progress Note ---
Date of Service March 24, 2023 Assessment & Plan (1) HFrEF (heart failure with reduced ejection fraction): (2) Pleural effusion due to CHF (congestive heart failure): (3) Iatrogenic pneumothorax: (4) Tobacco use disorder: (5) Acute congestive heart failure: Plan 76 yo male PMHx CAD s/p CABG, HFrEF, tobacco use admitted for dyspnea, LE edema and found to have recurrence of b/l pleural effusion #HFrEF w/ exacerbation Last Echo 02/26/23, EF 30-35% BNP improved since admission, 164 <-- 315 Without medication since previous discharge, pt followed up w/ pharmacy himself, they now have his payment info Lasix 40mg IV daily; holding home PO Lasix (20mg daily) until euvolemic Restarted home medications ASA 81 metoprolol succinate 50mg spironolactone 25mg Entresto 26/24mg, cardio looking into getting Entresto [id number]-ww-[id number] coupon for him during F/U appt Atorvastatin 40mg Strict I/O, daily weights, output 2500 mL yesterday Cardiology consulted: placement of a BiV ICD under consideration due to LBBB and frequent ventricular ectopy as well as a repeat cardiac catheterization as previous bypass grafts done in 2017 and patient has been intermittently non- compliant with medication; tentatively planning for ICD placement on Saturday contingent upon patient's clinical symptoms and picture #Pleural Effusion 2/2 CHF Recurrence after resolution at time of discharge Daily CXR: moderate left and small right pleural effusions If no improvement, could consider thoracocentesis Pulm consult if not resolving #Iatrogenic Pneumothorax Small remaining L pneumothorax on CXR No crepitus #Tobacco Use Nicotine patch Tobacco cessation counseling #Social Determinants Health health care access/medication pickup patient contacted [facility] regarding payment info, setup for payment now FENGI: Heart Healthy Code status: Full DVT prophylaxis: Lovenox, 40 mg, SQ, QAM Isolation: none Disposition: med tele Admission and Anticipated Discharge Date Admission Date: March 20, 2023 Supervising Physician Co-Signing Physician Notes Attending Physician Supervision Note: I independently interviewed and examined the patient and verified the cook history and physical, reviewed labs and image studies and agree with findings and care plan noted above. no new concerns. breathing improved. vitals noted nad heent nc at mmm breathing unlabored no accessory muscles good e ffort skin no rashes no pallor or icterus neuro no focal deficits. lungs - decreased breath sounds at base. Acute HFrEF Bilateral pleural effusion -continuing to diurese well -continue lasix. continue other meds - entresto, metoprolol, spironolactone. follow bmp. 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 He claims to have been ambulatory to the commode and back. Patient still continues to deny chest pain, feeling of palpitations. Patient continues to wait cardiac procedure tomorrow--implantation of ICD--with hopes his clinical symptoms will improve afterwards. Review of Systems Review of Systems: reviewed, per HPI Constitutional: + fatigue and + weakness; no fever and n o chills Respiratory: + cough (productive cough) and + dyspnea Cardiovascular: + dyspnea and + orthopnea; no chest pain , no radiating jaw, neck or arm pain and no palpitations (intermittently) Gastrointestinal: no abdominal pain, no nausea, no vomiting, no constipation and no diarrhea/loose stools Genitourinary: + urinary frequency (secondary to Lasix) Neurologic: no loss of sensation, no tingling and no numbness Physical Exam Constitutional: WD/WN, vitals as above Respiratory: normal respiratory effort, lungs clear to auscultation Cardiovascular: RRR, no murmur, no edema Vessels: no JVD Extremities: normal capillary refill; no calf tenderness, no pedal edema and no edema Gastrointestinal (Abdomen): normal bowel sounds, soft, nontender, no hepatosplenomegaly Psychiatric: A+Ox3, euthymic affect Results & Data Results & Data Vital Signs (Past 12 Hours) Vital Signs Temp Pulse Pulse Resp BP Pulse Ox O2 Del Method 03/24/23 03:47 36.5 C 64 18 106/61 94 Nasal Cannula 03/24/23 00:34 71 03/23/23 22:43 36.9 C 61 20 104/68 93 Room Air 03/23/23 20:00 Room Air 03/23/23 19:31 36.7 C 71 20 114/54 L 91 Room Air O2 Flow Rate 03/24/23 03:47 2.0 03/24/23 00:34 03/23/23 22:43 03/23/23 20:00 03/23/23 19:31 Resident Activity Tracking Resident Involvement: Resident Care Provided Care Provided: Adult [facility]
[2023-03-24 07:37] LABS: Calcium 8.8 mg/dl (8.6-10.3); Creatinine Clr Calc Pharmacy 85.7 ml/min; Est GFR (African American) 102.9 ml/min; Est GFR (Non-African American) 88.8 ml/min
--- NOTE | 2023-03-24 21:13 | Cardiology Progress Note ---
Date of Service March 24, 2023 Assessment & Plan (1) Ischemic cardiomyopathy: (2) Coronary artery disease: (3) HFrEF (heart failure with reduced ejection fraction): (4) Left bundle branch block: Plan 1. Ischemic cardiomyopathy: Poor compliance with medical therapy 2. Acute decompensated congestive heart failure: He appears to be improving. Effecting a good diuresis. Breathing better. Medical therapy has been reinstituted with metoprolol succinate, Entresto and spironolactone. 3. 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 Coronary disease: No current symptoms suggestive of coronary insufficiency. I did speak to the patient with regards to the utility of an ICD and R[employer] SALES [employer]INEE. I described the procedure and attendant risks. Also discussed the option of no implant in the risks associated without an ICD. Using shared decision-making we came to the conclusion the at an ICD is desirable and will plan on arranging the procedure for Saturday. Admission and Anticipated Discharge Date Admission Date: March 20, 2023 Subjective Feeling better this morning. Breathing improved. Ambulated around the minaya yesterday. Review of Systems Review of Systems: per HPI Physical Exam 2 Physical Exam: The patient is alert and oriented. Mood and affect appeared normal. He answered all questions appropriately. HEENT: Pupils are equal and reactive to light and accommodation. Extraocular movements are intact. The sclerae are anicteric. Neuro: Cranial nerves intact Lungs: Mildly reduced breath sounds at the left base. No rales. No expiratory wheezing. Normal respiratory effort. Cardiac: Regular rhythm with frequent ectopy. Normal S1 and S2. No murmurs on examination. Pulses: The patient has palpable radial pulses bilaterally that are equal in intensity Extremities: There was no evidence of hypoperfusion. There is no cyanosis or clubbing. There is no edema. Skin: I did not appreciate any rashes on examination today. Results & Data Vital Signs (Past 12 Hours) Vital Signs Temp Pulse Resp BP Pulse Ox O2 Del Method 03/24/23 19:00 36.5 C 63 20 115/63 94 Room Air 03/24/23 15:42 36.4 C L 66 18 109/59 L 92 Room Air 03/24/23 10:57 36.7 C 60 18 112/50 L 92 Room Air Laboratory Results Abnormal Lab Results 03/24/23 06:51 Sodium 137 Potassium 4.0 Chloride 108 H Carbon Dioxide 23 Anion Gap 6 BUN 30 H Creatinine 0.81 Est Cr Clr Drug Dosing 85.7 Est GFR ( Amer) 102.9 Est GFR (Non-Af Amer) 88.8 BUN/Creatinine Ratio 37.0 H Glucose 99 Calcium 8.8 B-Natriuretic Peptide 164 H PG Care Time/CCT Total # of Minutes Spent Total Time Spent with Patient: Total time spent is greater than 50% in coordination of care (as documented) at patient's floor/unit and/or counseling patient: Coding Level of Care Code 08289 SUB INP/OBS CARE 2/35MIN Diagnoses Ischemic cardiomyopathy I25.5 Coronary artery disease I25.10 HFrEF (heart failure with reduced ejection fraction) I50.20 Left bundle branch block I44.7
--- NOTE | 2023-03-25 06:51 | Hospitalist Progress Note ---
Date of Service March 25, 2023 Assessment & Plan (1) HFrEF (heart failure with reduced ejection fraction): (2) Pleural effusion due to CHF (congestive heart failure): (3) Iatrogenic pneumothorax: (4) Tobacco use disorder: (5) Acute congestive heart failure: Plan 76 yo male PMHx CAD s/p CABG, HFrEF, tobacco use admitted for dyspnea, LE edema and found to have recurrence of b/l pleural effusion #HFrEF w/ exacerbation Last Echo 02/26/23, EF 30-35% BNP improved since admission, 164 <-- 315 Without medication since previous discharge, pt followed up w/ pharmacy himself, they now have his payment info Lasix 40mg IV daily; holding home PO Lasix (20mg daily) until euvolemic Restarted home medications ASA 81 metoprolol succinate 50mg spironolactone 25mg Entresto 26/24mg, cardio looking into getting Entresto vhyrnh-lh-exddsibc coupon for him during F/U appt Atorvastatin 40mg Strict I/O, daily weights, output 2250 mL yesterday Cardiology consulted: placement of a BiV ICD planned due to LBBB and frequent ventricular ectopy as well as a repeat cardiac catheterization as previous bypass grafts done in 2017 and patient has been intermittently non-compliant with medication; tentatively planning for ICD placement on Saturday contingent upon patient's clinical symptoms and picture #Pleural Effusion 2/2 CHF Recurrence after resolution at time of discharge Repeat CXR: moderate left and small right pleural effusions, consider another CXR before d/c If no improvement, could consider thoracocentesis Pulm consult if not resolving #Iatrogenic Pneumothorax Small remaining L pneumothorax on admission CXR, repeat CXR did not note one No crepitus #Tobacco Use Nicotine patch Tobacco cessation counseling #Social Determinants Health health care access/medication pickup [facility], setup for payment now FENGI: Heart Healthy Code status: Full DVT prophylaxis: Lovenox, 40 mg, SQ, QAM Isolation: none Disposition: med tele Admission and Anticipated Discharge Date Admission Date: March 20, 2023 Supervising Physician Co-Signing Physician Notes I personally examined the patient and verified all cook points of history and exam, discussed case, and agree with decision making with Dr Grimes Sleeping soundly post procedure. No new issues noted. Vitals noted, in general he is resting comfortably no distress. Breathing unlabored on room air no tachypnea no accessory muscle use. Skin without rashes, pallor, icterus. Acute HFrEF Bilateral pleural effusion -continuing to diurese -continue lasix. continue other meds - entresto, metoprolol, spironolactone. follow bmp. At discharge continue to encourage him to get his meds to the best of his ability. - Post EP procedure today Subjective Chief Complaint: Dyspnea, LE edema Primary Care Provider: NO PCP Pt is 72 yo male PMHx HFrEF, CAD s/p CABG in 2017 recently discharged from [facility] 03/03/23 for acute HFrEF exacerbation and b/l pleural effusion. Admitted for 3-4 days of increasing shortness of breath and exercise intolerance. Pt reported that he has not taken his medications since discharge because he was waiting for them to be delivered. He has home nursing visits and nurse instructed patient to return to ED due to worsening SOB and LE edema. Of note, chart review indicates pt medications sent to local pharmacy, pt did not follow up with PCP after discharge. Scheduled for cardiology ICD implantation. Patient continues to smoke 1PPD. Pt with 3kg weight increase since Feb discharge. Saw patient this morning, he continues to feel better, less dyspnea at rest and when walking to toilet. Patient anticipating getting his ICD today. Still no chest pain, no palpitations, nor edema of the lower extremities now. Review of Systems Constitutional: + fatigue and + weakness; no fever and n o chills Respiratory: + cough (productive cough) and + dyspnea Cardiovascular: + dyspnea and + orthopnea; no chest pain , no radiating jaw, neck or arm pain and no palpitations (intermittently) Gastrointestinal: no abdominal pain, no nausea, no vomiting, no constipation and no diarrhea/loose stools Genitourinary: + urinary frequency (secondary to Lasix) Neurologic: no loss of sensation, no tingling and no numbness Physical Exam Constitutional: WD/WN, vitals as above Respiratory: normal respiratory effort, lungs clear to auscultation Cardiovascular: RRR, no murmur, no edema Vessels: no JVD Extremities: normal capillary refill; no calf tenderness, no pedal edema and no edema Gastrointestinal (Abdomen): normal bowel sounds, soft, nontender, no hepatosplenomegaly Psychiatric: A+Ox3, euthymic affect Results & Data Results & Data Vital Signs (Past 12 Hours) Vital Signs Temp Pulse Pulse Resp BP Pulse Ox O2 Del Method 03/25/23 03:00 36.4 C L 53 L 20 98/51 L 96 Room Air 03/24/23 23:05 61 03/24/23 23:00 36.4 C L 71 24 106/53 L 95 Room Air 03/24/23 20:00 Room Air 03/24/23 19:00 36.5 C 63 20 115/63 94 Room Air
[2023-03-25 06:59] LABS: BUN Creatinine Ratio 30.8 (10-20); Calcium 8.8 mg/dl (8.6-10.3); Creatinine Clr Calc Pharmacy 64.5 ml/min; Potassium 4.4 mmol/L (3.5-5.1)
--- NOTE | 2023-03-25 08:43 | Cardiology Progress Note ---
Date of Service March 25, 2023 Assessment & Plan (1) HFrEF (heart failure with reduced ejection fraction): Plan Pmhx: 1. Left bundle-branch block. A. Severe left main and 3-vessel coronary artery disease. B. CABG x4 with KRISHNAN to LAD, SVG to the diagonal, SVG to the marginal and SVG to the PDA 04/2016. 2. History of pibqumux-my-kwflsz left ventricular dysfunction preoperatively with an EF in the range of 30-35%; echo 08/2016 with wzdf-mr-exyoxbkc left ventricular dysfunction and an EF in the range of 35-40%. 3. Type 1 diastolic dysfunction with normal left atrial pressures. 4. Emphysema. 5. Longstanding tobacco abuse 6. Significant alcohol abuse, self-described as an alcoholic. 7. Status post removal of basal cell carcinoma on his face. 8. INTOLERANCE TO BOTH JEREMY INHIBITORS AND ANGIOTENSIN RECEPTOR BLOCKERS, DESCRIBING SIGNIFICANT FATIGUE AND FEELING POORLY. 9. Pulmonary nodule. 10. Negative abdominal ultrasound for abdominal aortic aneurysm 11/2016. 11. Iatrogenic pneumothorax 12. Pleural effusion Mr. Patel is to have a BiV/ICD placed today. He has resumed Entresto, spironolactone and metoprolol. He is agreeable to continue those. His scripts are already there and he has one month of Entresto free. He will pick them up with his ride at discharge from the hospital. We can work on getting further assistance for Entresto at his follow up. He should have an SGLT2 added to his regimen but he is unlikely to be able to afford it. He should maintain a low salt diet and quit smoking. We will avoid catheterization for the time being as he has had trouble with compliance thus far and may not be able to keep a DAPT regimen so medical the rapy over stenting is preferred for now. His mild troponin elevation is likely due heart failure. He is not having any ischemic symptoms. He is on appropriate CAD medications. His blood pressure is stable. He should follow up with the cardiology clinic within a few weeks of discharge. Admission and Anticipated Discharge Date Admission Date: March 20, 2023 Subjective Mr. Patel notes some continued sob but with improvement. No chest pain. Review of Systems Review of Systems: All systems reviewed & are unremarkable except as noted in HPI & below Physical Exam Constitutional: WD/WN, vitals as above Respiratory: normal respiratory effort, lungs clear to auscultation Cardiovascular: RRR, no murmur, no edema Skin: no rashes, warm and dry Neurologic: moves all extremities and awake Psychiatric: A+Ox3, euthymic affect Results & Data Vital Signs (Past 12 Hours) Vital Signs Temp Pulse Pulse Resp BP Pulse Ox O2 Del Method 03/25/23 07:51 36.6 C 60 19 99/53 L 97 Nasal Cannula 03/25/23 03:00 36.4 C L 53 L 20 98/51 L 96 Room Air 03/24/23 23:05 61 03/24/23 23:00 36.4 C L 71 24 106/53 L 95 Room Air O2 Flow Rate 03/25/23 07:51 2.0 03/25/23 03:00 03/24/23 23:05 03/24/23 23:00
[2023-03-25] MEDS: FUROSEMIDE INJ 20 MG/2 ML VIAL IV SCH (08:45)
--- NOTE | 2023-03-25 11:33 | Pre Anesthesia Assessment ---
Date of Service March 25, 2023 Pre Sedation Assessment Vital Signs Temp Pulse Pulse Resp BP Pulse Ox O2 Del Method 03/25/23 08:45 62 101/62 03/25/23 07:51 36.6 C 60 19 99/53 L 97 Nasal Cannula 03/25/23 03:00 36.4 C L 53 L 20 98/51 L 96 Room Air 03/24/23 23:05 61 03/24/23 23:00 36.4 C L 71 24 106/53 L 95 Room Air 03/24/23 20:00 Room Air 03/24/23 19:00 36.5 C 63 20 115/63 94 Room Air 03/24/23 15:42 36.4 C L 66 18 109/59 L 92 Room Air O2 Flow Rate 03/25/23 08:45 03/25/23 07:51 2.0 03/25/23 03:00 03/24/23 23:05 03/24/23 23:00 03/24/23 20:00 03/24/23 19:00 03/24/23 15:42 Cardiovascular + regular rate and + irregularly irregular Respiratory + respiratory effort normal Pre-Sedation Airway Assessment Smoking Status: Current every day smoker Hx Sleep Apnea: No Hx Difficult Intubation: No Short, Thick Neck: No Thyromental Distance: > or= 3.5 Finger Breadths Oral Cavity: + WNL Mallampati Class: III ASA: ASA3 Procedure Planning Contraindications for Sedation: none Current Medications Reviewed: Yes Notes The planned sedation has been discussed with the patient. Informed Consent was obtained. I have identified the patient, determined the appropriateness of sedation and have assessed the patient immediately prior to the procedure. All medicine(s) and interventions are by my order.
[2023-03-25] MEDS: BUPIVACAINE 0.25% PF 30 ML VIAL ONE (13:18)
[2023-03-25] MEDS: WATER, STERILE FOR INJ 10 ML VIAL ONE (13:19)
[2023-03-25] MEDS: ceFAZolin 330 MG/ML 1 GM VIAL ONE (13:19)
[2023-03-25] MEDS: fentaNYL citrate PF 100 MCG/2 ML VIAL ONE (13:19)
[2023-03-25] MEDS: diphenhydrAMINE 50 MG/ML VIAL ONE (13:19)
[2023-03-25] MEDS: MIDAZOLAM HCL 5 MG/ML 1 ML VIAL ONE (13:19)
[2023-03-25] MEDS: VANCOMYCIN HCL 1000MG/20ML VIAL ONE (13:19)
[2023-03-25] MEDS: LIDOCAINE 1% LOCAL 20 ML VIAL ONE (13:19)
--- NOTE | 2023-03-25 13:28 | Electrophysiology Report ---
Date of Service March 25, 2023 Electrophysiology Procedure Electrophysiology Procedure Report Procedure performed: Implantation of biventricular ICD with left bundle pacing lead Staff online affiliate marketing manager: James Beltre MD Indication: The patient is a 72-year-old gentleman with a history of an ischemic cardiomyopathy. He has a persistently low ejection fraction less than 35%. This is despite guideline directed medical therapy. [place] heart Association class 3 symptoms. No revascularization in the past 90 days or myocardial infarction in the past 40 days. Anticipated longevity greater than 1 year. As such he appears to be a good candidate for an ICD as primary preventi on against sudden cardiac . Cardiac resynchronization therapy is indicated as he has a baseline left bundle branch block, associated symptoms and QRS duration greater than 150 milliseconds. As noted in his outpatient record discussion was undertaken regarding the risks, benefits and alternatives to an ICD as well as proceeding without ICD therapy. She would decision-making was employed in order to come to a decision he is agreeable today. Procedure in detail: The patient was informed of the risks benefits and alternatives to the intended procedure and he wished to proceed. He was taken to the electrophysiology suite in a fasting state. A preoperative antibiotic had been administered. The patient was monitored electrocardiographically throughout today's procedure and conscious sedation was administered per protocol. The left upper pectoral area is prepped and draped in usual sterile fashion. This area was anesthetized using subcutaneous administration of a xylocaine solution. An incision was made at this site and carried down to the prepectoralis fascia using sharp dissection. Electrocautery was also employed for dissection as well as for hemostasis. A device pocket was fashioned tissues above the pectoralis muscle. The left axillary vein was accessed 3 times using modified Seldinger technique. A sheath was placed over guidewire and used facilitate passage of the ICD lead to the right ventricular apex under fluoroscopic guidance. Adequate sensing threshold parameters were obtained prior to active fixation lead to the endocardial surface. The proximal portion lead was then sutured to prepectoralis fascia using nonabsorbable suture. A sheath was placed over another guidewire and used facilitate passage of the guiding catheter for mapping of the interventricular septum. His bundle potential was initially identified in used to guide implantation. Once an appropriate location was discovered in the interventricular septum the pacing lead was advanced into the interventricular septum under fluoroscopic guidance. Adequate sensing threshold parameters as well as the appropriate electrocardiographic appearance were obtained prior to removal of the guiding catheter. The proximal portion lead was then sutured to prepectoralis fascia using nonabsorbable suture. A sheath was placed over the remaining guidewire and used facilitate passage of a pacing lead to the right atrium under fluoroscopic guidance. Adequate sensing threshold parameters were obtained prior to active fixation lead to the endocardial surface. The proximal portion lead was then sutured to prepectoralis fascia using nonabsorbable suture. The device pocket was irrigated with antibiotic solution. The leads were then attached to the device. The device and leads were then placed in the pocket and pocket was closed in 3 layers of absorbable suture. Steri-Strips and sterile dressing were applied. The device was tested noninvasively prior to conclusion the procedure. The patient tolerated procedure well there no immediate complications. Equipment used: New pulse generator: Safety Teacher [employer]. Model number:[id number] serial number: [id number] Right atrial lead: Safety Teacher [employer]. Model number: 5076 serial number [id number] Right ventricular lead: Safety Teacher [employer]. Model number: 6935 mm serial number [id number] Left bundle pacing lead: Safety Teacher [employer]. Model 3. 830 serial number L [id number] Measured data: Right atrial lead: P-waves measured 2.1 mV. Pacing threshold 0.5 volts at 0.4 milliseconds with a pacing impedance of 475 Ohms Right ventricular lead: R-waves measured 9.1 mV. Pacing threshold was 0.5 volts at 0.4 milliseconds with a pacing impedance of 475 Ohms Left bundle pacing lead: R-waves measured 7 mV. Pacing threshold 0.8 volts at 0.5 milliseconds with a pacing impedance of 582 Ohms in the bipolar configuration Impression: Successful implantation of biventricular ICD with left bundle pacing lead [facility] Electrophysiology codes EP Procedure 1: Electrophysiology: 04954 Bundle of His recording Pacing Procedure 1: Pacin BiV electrode w/Pacer / ICD implant, add on code ICD Procedure 1: ICD: 22487 Insert single or dual ICD system PG Moderate Sedation Codes Moderate Sedation Codes Procedure 1: Sedation/Anesthesia: 47833 Mod Sedation by the same physician;Init15 Min Child Age 5 & Up Procedure 2: Sedation/Anesthesia: 10016 Mod Sedation by the same physician; Ea [id number] Minutes
--- NOTE | 2023-03-25 13:28 | Post Anesthesia Assessment ---
Date of Service March 25, 2023 Post Sedation Assessment Vital Signs Temp Pulse Pulse Resp BP Pulse Ox O2 Del Method 03/25/23 08:45 62 101/62 03/25/23 07:51 36.6 C 60 19 99/53 L 97 Nasal Cannula 03/25/23 03:00 36.4 C L 53 L 20 98/51 L 96 Room Air 03/24/23 23:05 61 03/24/23 23:00 36.4 C L 71 24 106/53 L 95 Room Air 03/24/23 20:00 Room Air 03/24/23 19:00 36.5 C 63 20 115/63 94 Room Air 03/24/23 15:42 36.4 C L 66 18 109/59 L 92 Room Air O2 Flow Rate 03/25/23 08:45 03/25/23 07:51 2.0 03/25/23 03:00 03/24/23 23:05 03/24/23 23:00 03/24/23 20:00 03/24/23 19:00 03/24/23 15:42 Recovery Score Activity: Moves 4 extremities Respiration: Deep Breath/Cough Circulation: +/-20% PreAnes Value Consciousness: Fully Awake Oxygen Saturation: > 92% On Room Air Discharge Sedation Level of Care: Fast Track Phase II Post Sedation Plan On clinical assessment, the patient appears to have tolerated the sedation without complications. Patient is recovering as anticipated. Patient will continue to be monitored by nursing and may be discharged when sedation discharge criteria are met per below protocol. Upon Completions of procedure up to 15 minutes continue every 5 minute vital signs and the P.A.R. score; then discharge to a Phase I or Fast Track to Phase II per the following guidelines: * Discharge Patient to appropriate Phase II area if PAR is 8 or greater or return to pre- procedure baseline. The post - procedure orders will be as directed. * If PAR score is less than 8 or not return to pre-procedure baseline then patient will follow Phase I monitoring till PAR is reached for Phase II. The Phase I may be done in procedure room or may call to secure a Phase I area. * If naloxone or flumazenil are used for reversal, hold in Phase I for continued monitoring from when last reversal dose was given for a minimum of 60 minutes or longer pending the nurse and/or physician discretion of patient condition before discharge to Phase II. Please call the Sedation Physician to re-evaluate and complete post-note for discharge to Phase II area. Do NOT discharge from procedure sedation or Phase 1 until post- sedation evaluation note is complete by procedure /sedation MD Sedation Discharge Instructions to be given to the patient at discharge to home.
[2023-03-25] MEDS: oxyCODONE HCL IR 5 MG TAB (IMMEDIATE RELEASE) PO PRN (16:25)
--- NOTE | 2023-03-25 18:22 | Billing Data ---
Date of Service March 25, 2023 Coding Level of Care Code 75311 SUB INP/OBS CARE
[2023-03-25] MEDS: ceFAZolin 1000MG 1,000 MG/7.5 ML SYR IV ONE (19:36)
--- NOTE | 2023-03-26 07:13 | XRay Report ---
XR chest 2V PA/lateral HISTORY: Pacemaker placement. EXACT TIME ORDERED Evaluate for pneumothorax and l COMPARISON: Chest 03/22/2023. FINDINGS: No pneumothorax. Small left pleural effusion and a trace right pleural effusion. Decrease i n size. Left basilar densities persist. The heart is top normal in size. There are poststernotomy bryce nges. Is left-sided pacemaker/defibrillator noted. The leads appear intact. No evidence for pulmonary edema. IMPRESSION: 1. Interval placement of a left-sided pacemaker/defibrillator. No pneumothorax. 2. Small left and trace right pleural effusions have decreased in size. 3. Left basilar densities persist. ACT 112: Negative or not required by law. Electronically signed by: Umberto Miguel M.D. 03/26/2023 7:12 AM
[2023-03-26 09:09] LABS: BUN Creatinine Ratio 28.9 (10-20); Calcium 9.1 mg/dl (8.6-10.3); Creatinine Clr Calc Pharmacy 71.3 ml/min; Est GFR (Non-African American) 77.7 ml/min; Potassium 4.2 mmol/L (3.5-5.1)
--- NOTE | 2023-03-26 12:27 | Cardiology Progress Note ---
Date of Service March 26, 2023 Assessment & Plan (1) Ischemic cardiomyopathy: (2) Coronary artery disease: (3) HFrEF (heart failure with reduced ejection fraction): (4) Left bundle branch block: Plan 1. Ischemic cardiomyopathy: Poor compliance with medical therapy. 2. Acute decompensated congestive heart failure: He was gradually improving. [place] well yesterday. Unclear why he is not feeling as well today. Very diffuse symptoms overall. Medical therapy has been reinstituted with metoprolol succinate, Entresto and spironolactone. 3. Left bundle-branch block: Status post biventricular ICD with left bundle pacing lead. 4. Coronary disease: No current symptoms suggestive of coronary insufficiency. He underwent successful implantation of a biventricular ICD yesterday implying a left bundle pacing lead. Pacing morphology looks favorable. Good pacing pe rcentage now that he is programmed to 75 beats per minute. This over drives a lot of the ventricular ectopy. From a purely device standpoint he would be stable for discharge today. He would be asked to refrain from lifting left arm above the shoulder behind the neck for 6 weeks. Needs to keep the wound dry and Steri-Strips intact until he can follow-up for wound check within 7 days. Admission and Anticipated Discharge Date Admission Date: March 20, 2023 Subjective Last evening the patient reported feeling great. However, after awakening this morning he has not felt well. He had some difficulty characterizing this statement. He feels as if his brain is foggy. He stated that his breathing yesterday was fantastic. Today he has not so confident. However, he did not endorse significant breathing trouble. He was up in a chair earlier. No dizziness or lightheadedness. Continues to have some discomfort at the device implant site in left pectoral area. Review of Systems Review of Systems: Per HPI Physical Exam Physical Exam: Alert. Oriented. Answered all questions appropriately. Normal respiratory effort Device implant in the left upper pectoral area without drainage, hematoma or significant erythema. No significant ecchymosis. Results & Data Vital Signs (Past 12 Hours) Vital Signs Temp Pulse Resp BP Pulse Ox O2 Del Method 03/26/23 11:41 36.5 C 73 18 112/62 92 Room Air 03/26/23 08:00 Room Air 03/26/23 07:57 36.2 C L 75 18 120/76 94 Room Air 03/26/23 03:00 36.5 C 75 21 113/69 96 Room Air Laboratory Results Abnormal Lab Results 03/26/23 08:41 Sodium 135 L Potassium 4.2 Chloride 104 Carbon Dioxide 25 Anion Gap 6 BUN 28 H Creatinine 0.97 Est Cr Clr Drug Dosing 71.3 Est GFR ( Amer) 90.0 Est GFR (Non-Af Amer) 77.7 BUN/Creatinine Ratio 28.9 H Glucose 139 H Calcium 9.1 Diagnostic Findings Chest x-ray this morning demonstrated stable lead position without evidence of pneumothorax I performed a complete device interrogation of the biventricular ICD. Normal function on all 3 leads.
--- NOTE | 2023-03-26 16:45 | Hospitalist Progress Note ---
Date of Service March 26, 2023 Assessment & Plan (1) HFrEF (heart failure with reduced ejection fraction): (2) Pleural effusion due to CHF (congestive heart failure): (3) Iatrogenic pneumothorax: (4) Tobacco use disorder: (5) Acute congestive heart failure: Plan 76 yo male PMHx CAD s/p CABG, HFrEF, tobacco use admitted for dyspnea, LE edema and found to have recurrence of b/l pleural effusion #HFrEF w/ exacerbation Last Echo 02/26/23, EF 30-35% BNP improved since admission, 164 <-- 315 Without medication since previous discharge, pt followed up w/ pharmacy himself, they now have his payment info Lasix 20 mg IV daily started day of ICD placement, will continue at discharge Restarted home medications ASA 81 metoprolol succinate 50mg spironolactone 25mg Entresto 26/24mg, Entresto [id number] coupon for him during F/U appt Atorvastatin 40mg Strict I/O, daily weights, output 1605 mL yesterday Cardiology consulted: placement of a BiV ICD planned due to LBBB and frequent ventricular ectopy --> now S/P ICD placement, patient with some residual MSK- pain --> oxycodone, 5 mg, q4h, PO, PRN for pain #Pleural Effusion 2/2 CHF Recurrence after resolution at time of discharge Repeat CXR: moderate left and small right pleural effusions have improved to small l. and trace r. pleural effusions Pulm consult not necessary #Iatrogenic Pneumothorax Small remaining L pneumothorax on admission CXR, repeat CXR did not note one No crepitus #Tobacco Use Nicotine patch Tobacco cessation counseling #Social Determinants Health health care access/medication pickup patient contacted [facility] regarding payment info, setup for payment now FENGI: Heart Healthy Code status: Full DVT prophylaxis: Lovenox, 40 mg, SQ, QAM Isolation: none Disposition: med tele Admission and Anticipated Discharge Date Admission Date: March 20, 2023 Supervising Physician Co-Signing Physician Notes I personally examined the patient and verified all cook points of history and e xam, discussed case, and agree with decision making with Dr Grimes Feeling better. Pain at incision site improving. Getting up and walking around better. Feels like he will be good to go home tomorrow. Vitals noted, in general he is awake and alert pleasant no distress. HEENT normocephalic atraumatic mucous membranes moist. Breathing unlabored no accessory muscle use good effort. Skin shows no rashes no pallor or icterus. Neuro without focal deficits. Acute HFrEF Bilateral pleural effusion - Pain improvingmedically doing much better. Hopefully home tomorrow. Continue to encourage adherence to medications. Subjective Chief Complaint: Dyspnea, LE edema Primary Care Provider: NO PCP Pt is 72 yo male PMHx HFrEF, CAD s/p CABG in 2017 recently discharged from [facility] 03/03/23 for acute HFrEF exacerbation and b/l pleural effusion. Admitted for 3-4 days of increasing shortness of breath and exercise intolerance. Pt reported that he had not taken his medications since discharge because he was waiting for them to be delivered. He has home nursing visits and nurse instructed patient to return to ED due to worsening SOB and LE edema. Of note, chart review indicates pt medications sent to local pharmacy, pt did not follow up with PCP after discharge. Medication issues now resolved and Cindy Farfan has his payment info, etc. Patient now s/p cardiology ICD implantation. Patient continues to smoke 1PPD. Pt with 3kg weight increase since Feb discharge. Saw patient this morning, notes mostly MSK-type pain after the procedure from yesterday (08/20); he continues to feel better, less dyspnea at rest and when walking to toilet. Still no chest pain, no palpitations, nor edema of the lower extremities now. Patient would prefer to stay one more night and allow the pain to resolve more fully before being discharged. Review of Systems Review of Systems: reviewed, per HPI Constitutional: + fatigue and + weakness; no fever and n o chills Respiratory: + cough (productive cough) and + dyspnea Cardiovascular: + dyspnea and + orthopnea; no chest pain , no radiating jaw, neck or arm pain and no palpitations (intermittently) Gastrointestinal: no abdominal pain, no nausea, no vomiting, no constipation and no diarrhea/loose stools Genitourinary: + urinary frequency (secondary to Lasix) Neurologic: no loss of sensation, no tingling and no numbness Physical Exam Constitutional: WD/WN, vitals as above Respiratory: normal respiratory effort, lungs clear to auscultation Cardiovascular: RRR, no murmur, no edema Vessels: no JVD Extremities: normal capillary refill; no calf tenderness, no pedal edema and no edema Gastrointestinal (Abdomen): normal bowel sounds, soft, nontender, no hepatosplenomegaly Psychiatric: A+Ox3, euthymic affect Results & Data Results & Data Vital Signs (Past 12 Hours) Vital Signs Temp Pulse Resp BP Pulse Ox O2 Del Method 03/26/23 15:27 36.4 C L 75 18 110/68 97 Room Air 03/26/23 11:41 36.5 C 73 18 112/62 92 Room Air 03/26/23 08:00 Room Air 03/26/23 07:57 36.2 C L 75 18 120/76 94 Room Air
--- NOTE | 2023-03-26 18:10 | Billing Data ---
Date of Service March 26, 2023 Coding Level of Care Code 62287 SUB INP/OBS CARE
--- NOTE | 2023-03-27 05:26 | Electrocardiogram Report ---
Test Reason : Blood Pressure : / mmHG Vent. Rate : 075 BPM Atrial Rate : 075 BPM P-R Int : 108 ms QRS Dur : 178 ms QT Int : 494 ms P-R-T Axes : 000 -17 124 degrees QTc Int : 551 ms AV dual-paced rhythm Abnormal ECG When compared with ECG of 21-MAR-2023 05:34, Electronic ventricular pacemaker has replaced Sinus rhythm Confirmed by Fly Lundberg ([id number]) on 03/27/2023 5:25:59 AM Referred By: REFERRED SELF Confirmed By:Fly Lundberg
--- NOTE | 2023-03-27 07:00 | Discharge Summary ---
Date of Service March 27, 2023 Admission HPI Per Admitting Provider 72 yo male PMHx HFrEF, CAD s/p CABG in 2017 recently discharged from [facility] 03/03/23 for acute HFrEF exacerbation and b/l pleural effusion. Admitted for 3-4 days of increasing shortness of breath and exercise intolerance. Pt reports that he has not taken his medications since discharge because he was waiting for them to be delivered. He has home nursing visits and nurse instructed patient to return to ED due to worsening SOB and LE edema. Of note, chart review indicates pt medications sent to local pharmacy, pt did not follow up with PCP after discharge. Scheduled for cardiology appt with Dr. Fischer tomorrow 03/21/23; PCP visit 03/29/23. Patient seen and evaluated at bedside. NAD. Endorses continued SOB. Patient denies CP, abdominal pain, nausea, vomiting, lightheadedness, dizziness, and diarrhea. Continues to smoke 1PPD. Labs significant for Trop 42.6 (decreased from prior), BNP 315 Imaging: b/l pleural effusions again present, trace L pneumothorax VSS, 3kg weight increase since discharge Admission Exam Per Admitting Provider Physical Exam: Constitutional: ill-appearing, no acute distress HEENT: NCAT, no conjunctival injection CV: regular rhythm, extremities well-perfused, 1+ b/l LE edema Resp: decreased breath sounds in b/l lung bases L>R, mildly increased work of breathing, without supplemental oxygen requirement GI: soft, nondistended, nontender MSK: no gross deformities appreciated Skin: warm, dry, no rash appreciated Neuro: alert, oriented, no focal neurologic deficit appreciated Principal Diagnosis CHF exacerbation, S/P ICD placement Discharge Exam Constitutional WD/WN, vitals as above Respiratory normal respiratory effort, lungs clear to auscultation + cough (pt's cough improving though) Auscultation: no crackles Cardiovascular RRR, no murmur, no edema Vessels: no JVD Extremities: normal capillary refill; no calf tenderness, no pedal edema and no edema Gastrointestinal (Abdomen) normal bowel sounds, soft, nontender, no hepatosplenomegaly Musculoskeletal Head/Neck/Chest: + chest tenderness (around ICD insertion site) Psychiatric A+Ox3, euthymic affect Discharge Data Allergies Allergy/AdvReac Type Severity Reaction Status Date / Time morphine Allergy Intermediate HIVES Verified 03/20/23 17:00 Consultations 03/20/23 17:26 ED Decision to Admit Stat 03/20/23 23:14 Consult Cardiology Routine 03/20/23 23:36 Consult [facility] [employer] digital sales food & cooking Routine 03/22/23 09:39 Consult Cardiac Electrophysiology Routine Procedures Performed Operation Date: 03/25/23 12:00 Actual Procedures p ICD Insertion Single or Dual - James Beltre MD s Cineradiography w/Routine Exam - James Beltre MD s Bundle of his Recording - James Beltre MD Ordered Studies 03/25/23 07:15 EP Lab Images for PACS ONCE Hospital Course (1) HFrEF (heart failure with reduced ejection fraction): (2) Pleural effusion due to CHF (congestive heart failure): (3) Iatrogenic pneumothorax: (4) Tobacco use disorder: (5) Acute congestive heart failure: Plan 76 yo male PMHx CAD s/p CABG, HFrEF, tobacco use admitted for dyspnea, LE edema and found to have recurrence of b/l pleural effusion #HFrEF w/ exacerbation Last Echo 02/26/23, EF 30-35% BNP improved since admission, 164 <-- 315 Without medication since previous discharge, pt followed up w/ pharmacy himself, they now have his payment info Lasix 20 mg IV daily started day of ICD placement, will continue at discharge Restarted home medications ASA 81 metoprolol succinate 50mg spironolactone 25mg Entresto 26/24mg, Entresto [id number] coupon for him during F/U appt Atorvastatin 40mg Strict I/O, daily weights, output 1605 mL yesterday Cardiology consulted: placement of a BiV ICD planned due to LBBB and frequent ventricular ectopy --> now S/P ICD placement, Discharge meds: patient with residual MSK-pain --> oxycodone, 5 mg, q6h, PO, PRN for pain, 10 tablets total #Pleural Effusion 2/2 CHF Recurrence after resolution at time of discharge Repeat CXR: moderate left and small right pleural effusions have improved to small l. and trace r. pleural effusions Pulm consult not necessary #Iatrogenic Pneumothorax Small remaining L pneumothorax on admission CXR, repeat CXR did not note one No crepitus #Tobacco Use Nicotine patch Tobacco cessation counseling #Social Determinants Health health care access/medication pickup patient contacted Camilla regarding payment info, setup for payment now Total Time Total Time Spent Total Time Spent (In Minutes): see attending attestation Discharge Plan Discharge Items Patient Disposition: Home - Self-Care Reason For Visit: CHF EXACERBATION Discharge Diagnosis: CHF exacerbation, S/P ICD placement Activity: Resume your previous activity Lifting: No more than 10 pounds Lifting Comment: No lifting left arm above shoulder behind neck for 6 weeks Bathing: Keep incision dry Bathing Comment: Keep wound dry and Steri-Strips intact until follow-up in the clinic Non-emergency contact: Primary Care Provider and Ceramics Technician Call non-emergency contact if: you have any medication questions and your pain is worsening Follow-up/Referrals: Anastasia Keene, [Primary Care Provider] - 03/29/23 10:20 am Diet: Heart Healthy Addtl Attending Provider Instructions: You were admitted to the hospital for increasing shortness of breath. You were treated with [_]. A discharge summary will be sent to your primary care physician to ensure continuity of care. Please bring this discharge summary with you to your next office appointment so that your provider can review it at that time. Follow-up appointments: We have requested a follow-up appointment with your primary care physician within one week of discharge. Please call their office if you do not hear from them. We have requested a follow-up appointment with your primary plate shop helper within a few weeks of discharge. Please call their office if you do not hear from them. Keep all your follow-up appointments as already scheduled. If you cannot make an appointment, notify your provider. Medications: Your medication list has been reviewed and reconciled upon discharge to ensure accuracy and continuity of care. An updated list of all your medications is included with your hospital discharge paperwork. Please review this list closely, and make note of any changes. We sent a new medication called oxycontin to your pharmacy. Take oxycontin, 5 mg/one tablet, every 6 hours, as needed, for 2-3 days. We sent a new medication called [med name] to your pharmacy. Take [med name] ([_]mg) [one tablet] [daily] [for _ days]. Take your medications as instructed; do not skip a dose of your medicines. Make sure all of your doctors know every medicine you are taking (including yakj-tkp-cwsycet medicines, vitamins, and supplements). Call your primary care provider before taking any new medicines (including vtuz-htq-wzlkqfd medicines, vitamins, and supplements), because some of these may interact with your current medications, or may make your symptoms worse. Tell your primary care provider if you cannot afford your medications. CONTACT YOUR PRIMARY CARE PROVIDER if you experience any of the following: increased shortness of breath, swelling of the legs/feet increasing chest pain or palpitation Difficulty following your treatment plan, or difficulty taking medications CALL 911 OR GO TO THE EMERGENCY DEPARTMENT if you experience any of the following: Sudden, severe abdominal pain or nausea/vomiting Severe chest pain, or chest pain that radiates (moves) to your jaw or arm Sudden, severe shortness of breath or difficulty breathing Thank you for allowing us to participate in your care Pending Studies at Discharge: No Stand-Alone Forms: My [facility] [employer], Smoking Cessation Medications and DC Order Prescriptions: New oxycodone 5 mg tablet 5 mg PO Q8H PRN (Reason: pain) Qty: 10 0RF Rx Instructions: severe pain Continued multivitamin Tablet 1 tab PO QAM Qty: 0 ascorbic acid (vitamin C) [Vitamin C] 500 mg Tablet 500 mg PO QAM Qty: 0 aspirin 81 mg Tablet,Chewable 81 mg PO QAM Qty: 0 vitamin B complex Tablet 1 tab PO QAM Qty: 0 cholecalciferol (vitamin D3) [Vitamin D3] 25 mcg (1,000 unit) Tablet 25 mcg PO QAM 90 Days Qty: 90 Glucosamine Chondroitin 550-30-1 mg Capsule 1 cap PO BID Qty: 0 atorvastatin 40 mg Tablet 40 mg PO QAM 90 Days Qty: 90 0RF Rx Instructions: PER PT "D/T INSURANCE ISSUES, I HAVEN'T STARTED THIS MED YET". metoprolol succinate 50 mg Tablet Extended Release 24 Hr 50 mg PO QAM 90 Days Qty: 90 0RF Rx Instructions: PER PT "D/T INSURANCE ISSUES, I HAVEN'T STARTED THIS MED YET". nitroglycerin [Nitrostat] 0.4 mg Tablet, Sublingual 0.4 mg sublingual Q5M PRN (Reason: chest pain) Qty: 60 0RF Rx Instructions: PER PT "D/T INSURANCE ISSUES, I HAVEN'T STARTED THIS MED YET". Entresto 24-26 mg Tablet 1 tab PO BID 90 Days Qty: 180 0RF Rx Instructions: PER PT "D/T INSURANCE ISSUES, I HAVEN'T STARTED THIS MED YET". spironolactone 25 mg Tablet 25 mg PO QAM 90 Days Qty: 90 0RF Rx Instructions: PER PT "D/T INSURANCE ISSUES, I HAVEN'T STARTED THIS MED YET". furosemide 20 mg tablet 20 mg PO DAILY 90 Days Qty: 90 0RF Rx Instructions: PER PT "D/T INSURANCE ISSUES, I HAVEN'T STARTED THIS MED YET". omega-3 fatty acids 1,000 mg Capsule 1,000 mg PO DAILY Discharge Orders: Discharge Order (Routine); Ordered 03/27/23 Ordered By: James Roberto/Other Patient Handouts: Pacemakers, Living with a Pacemaker, Taking Opioid Medicine Admission Data Admit Date/Time: 03/20/23 19:14 Attending Provider: Derek Grider Admit Provider: Ac Powers Primary Care Provider: Anastasia Keene Other Providers: Sanket Grace; Enrrique Fischer; Mauro Beltran; Reji Mulligan; Kendall Pozo; Kannan Anderson; Erik Galvan; Thang Acosta Jr; Fly Lundberg; Yessi Veloz; Anastasia Cornelius; James Caicedo; James Beltre; Derrick Vides; Ashlyn Rivera; Meredith Gonzalez; Pedro Morton; Tom Liang; Tomas Vázquez Other Interventions: Discharge Summary Assessment (RN) Last Done: 03/27/23 11:46 Supervising Physician Co-Signing Physician Notes I personally examined the patient and verified all cook points of history and exam, discussed case, and agree with decision making with Dr Grimes Still a decent amount of pain at incision site, but feels up to going home.Vitals noted, in general he is awake and alert pleasant no distress. HEENT normocephalic atraumatic mucous membranes moist. Breathing unlabored no accessory muscle use good effort. Skin shows no rashes no pallor or icterus. Neuro without focal deficits. Acute HFrEF Bilateral pleural effusion - Pain improvingmedically doing much better. Safe/stable for home today. Close follow-up. Reminded him that his illnesses are chronic and require chronic/ongoing management. Resident Activity Tracking Resident Involvement: Resident Care Provided Care Provided: Adult Hospital Medicine
--- NOTE | 2023-03-27 09:41 | Cardiology Progress Note ---
Date of Service March 27, 2023 Assessment & Plan Admission and Anticipated Discharge Date Admission Date: March 20, 2023 Subjective He feels better and is less short of breath. He has some mild lightheadedness with change in position. He has no chest discomfort or chest pressure. He has no lower extremity edema. He appears less short of breath talking in sentences. He denies any palpitations or fluttering. Results & Data Vital Signs (Past 12 Hours) Vital Signs Temp Pulse Resp BP Pulse Ox O2 Del Method 03/27/23 08:00 Room Air 03/27/23 07:53 36.5 C 73 18 114/67 96 Room Air 03/27/23 02:53 36.6 C 75 18 103/55 L 100 Room Air 03/26/23 23:08 36.6 C 75 18 115/69 95 Room Air Assessment & Plan (1) HFrEF (heart failure with reduced ejection fraction): Plan Pmhx: 1. Left bundle-branch block. A. Severe left main and 3-vessel coronary artery disease. B. CABG x4 with KRISHNAN to LAD, SVG to the diagonal, SVG to the marginal and SVG to the PDA 04/2016. 2. History of soucwjzs-um-pdvpal left ventricular dysfunction preoperatively with an EF in the range of 30-35%; echo 08/2016 with [id number] left ventricular dysfunction and an EF in the range of 35-40%. 3. Type 1 diastolic dysfunction with normal left atrial pressures. 4. Emphysema. 5. Longstanding tobacco abuse 6. Significant alcohol abuse, self-described as an alcoholic. 7. Status post removal of basal cell carcinoma on his face. 8. INTOLERANCE TO BOTH JEREMY INHIBITORS AND ANGIOTENSIN RECEPTOR BLOCKERS, DESCRIBING SIGNIFICANT FATIGUE AND FEELING POORLY. 9. Pulmonary nodule. 10. Negative abdominal ultrasound for abdominal aortic aneurysm 11/2016. 11. Iatrogenic pneumothorax 12. Pleural effusion As discussed with the primary service who is at the bedside, he looks better status post BiV pacing. Arrange for case management to print out the [employer] form for him to apply for the medication for free based on his last tax return. I discussed this with the patient and the importance of this. Case management is already had him give his information over the phone to Nicole who will deliver his medications for him. He will need an incision check which can be done by [facility] any cardiology. Long- term we can follow his device and pacemaker clinic at the [facility] office. We will arrange for his cardiology follow-up in the office. Again we had a long discussion with regards to the fact he needs to participate in his care. We discussed a low-salt diet and daily weights. We discussed the use of Lasix and when he might need additional doses. He understands the importance of this. Physical Exam Constitutional: WD/WN, vitals as above Respiratory: normal respiratory effort, lungs clear to auscultation Cardiovascular: RRR, no murmur, no edema Skin: no rashes, warm and dry Neurologic: moves all extremities and awake Psychiatric: A+Ox3, euthymic affect
--- NOTE | 2023-03-27 15:15 | Billing Data ---
Date of Service March 27, 2023 Coding Level of Care Code 35444 IN/OBS DISCH 30 MIN/LESS
== END 2023-03-27 12:31 | disposition home health service (06) | DRG 277 ==
LOC: ED 15:22 → EDINP 19:14 → SUATTDRO 19:14 → 2E 03-21 00:01
PROC: EPB.ICD (2023-03-25 12:00)

== ENCOUNTER 2023-12-05 09:54 | Observation (INO) ==
--- NOTE | 2023-12-05 10:43 | History & Physical Report ---
Date of Service December 05, 2023 Assessment & Plan (1) Ischemic cardiomyopathy: Plan PLan implant of CS lead and generator change History of Present Illness Primary Care Provider: Ji Bird MD Patient with a history of a prior ICD implant for an ischemic CM. No response to LBB pacing and presents for placement of a CS lead. Allergies Allergy/AdvReac Type Severity Reaction Status Date / Time morphine Allergy Intermediate HIVES Verified 12/05/23 10:41 Home Medications Medication Instructions Recorded Confirmed Type ascorbic acid (vitamin C) 500 mg 500 mg PO QAM ##0 12/03/16 12/05/23 History tablet (Vitamin C) aspirin 81 mg chewable tablet 81 mg PO QAM ##0 12/03/16 12/05/23 History cholecalciferol (vitamin D3) 25 25 mcg PO QAM 90 days #90 tabs 12/03/16 12/05/23 History mcg (1,000 unit) tablet (Vitamin D3) glucosamine sulf dipot 1 cap PO BID ##0 12/03/16 12/05/23 History chlr,msm,chond 550 mg-C 30 mg-mili 1 mg capsule (Glucosamine Chondroitin) multivitamin 1 tab PO QAM #0 tabs 12/03/16 12/05/23 History vitamin B complex 1 tab PO QAM ##0 12/03/16 12/05/23 History nitroglycerin 0.4 mg sublingual 0.4 mg sublingual Q5M PRN chest 03/03/23 12/05/23 Rx tablet (Nitrostat) pain #60 tabs omega-3 fatty acids 1,000 mg 1,000 mg PO DAILY 03/20/23 12/05/23 History capsule oxycodone 5 mg tablet 5 mg PO Q8H PRN pain #10 tabs 03/26/23 12/05/23 Rx atorvastatin 40 mg tablet (Lipitor) 40 mg PO DAILY 08/27/23 12/05/23 History ferrous sulfate 325 mg (65 mg 325 mg PO BID 08/27/23 12/05/23 History iron) tablet,delayed release furosemide 20 3XD 08/27/23 10/16/23 History sacubitril 24 mg-valsartan 26 mg 1 tab PO BID 08/27/23 12/05/23 History tablet spironolactone 25 mg tablet 25 mg PO DAILY 08/27/23 12/05/23 History Past Med/Surg History Problem List (Updated 04/03/23 @ 00:09 by Background Daemon) History of implantable cardioverter-defibrillator (ICD) insertion Left bundle branch block Ischemic cardiomyopathy Non-sustained ventricular tachycardia Iatrogenic pneumothorax Tobacco abuse counseling Pleural effusion due to CHF (congestive heart failure) (Acute) Elevated troponin (Acute) HFrEF (heart failure with reduced ejection fraction) Tobacco use disorder Acute congestive heart failure CHF (congestive heart failure) (Acute) Medical History (Updated 04/03/23 @ 00:09 by Background Daemon) Shortness of breath Coronary artery disease Hip dislocation, left Avascular necrosis of bone of left hip Rupture of bowel Diverticulitis 2006 ruptured Surgical History (Updated 03/26/23 @ 18:11 by Derek Grider DO) History of colon surgery Perforation from diverticulitis History of hernia surgery History of left hip hemiarthroplasty History of arthroplasty of right shoulder Hx of rotator cuff surgery Hx of cholecystectomy 2002 or 2003 per patient recollection History of coronary artery bypass graft Feb 2016 per patient recollection Social History Smoking Status: Current every day smoker Tobacco Type: Cigarettes Cigarettes Per Day: 24; Second Hand Exposure: Yes; Do You Dip or Chew Tobacco: No; Tobacco Cessation Education Requested by Patient: No Hx Alcohol Use: No Hx Substance Use: No Preferred Language: Andorran Communication Ability: Effective Hide Paster Required: No Beliefs That Will Affect Care: None Current Living Situation: Alone Current Living Situation Comment: apartment Feels Safe at Home: Yes Assistive Devices: None Physical Exam Physical Exam: Alert. Answered all questions appropriately Normal respiratory effort Regular rhythm Normal rate Minimal edema Results & Data Results & Data Vital Signs (Past 12 Hours) Vital Signs Temp Pulse Resp BP Pulse Ox O2 Del Method 12/05/23 10:20 36.7 C 75 14 115/46 L 96 Room Air
--- NOTE | 2023-12-05 10:43 | Pre Anesthesia Assessment ---
Date of Service December 05, 2023 Pre Sedation Assessment Vital Signs Temp Pulse Resp BP Pulse Ox O2 Del Method 12/05/23 10:20 36.7 C 75 14 115/46 L 96 Room Air Cardiovascular + regular rate and + regular rhythm Respiratory + respiratory effort normal Pre-Sedation Airway Assessment Smoking Status: Current every day smoker Hx Sleep Apnea: No Hx Difficult Intubation: No Short, Thick Neck: No Thyromental Distance: > or= 3.5 Finger Breadths Oral Cavity: + WNL Mallampati Class: III ASA: ASA3 NPO Status Date of Last Intake of Fluids: 12/04/23 Time of Last Intake of Fluids: 21:00 Date of Last Intake of Solid Food: 12/04/23 Time of Last Intake of Solid Foods: 21:00 Procedure Planning Contraindications for Sedation: none Current Medications Reviewed: Yes Notes The planned sedation has been discussed with the patient. Informed Consent was obtained. I have identified the patient, determined the appropriateness of sedation and have assessed the patient immediately prior to the procedure. All medicine(s) and interventions are by my order.
[2023-12-05] MEDS ORDERED: ALUMINUM/MAGNESIUM SUSP 30 ML UDC PO PRN (11:19)
[2023-12-05] MEDS ORDERED: ONDANSETRON INJ 2 MG/ML 2 ML VIAL IV PRN (11:19)
[2023-12-05] MEDS: WATER, STERILE FOR INJ 10 ML VIAL ONE (11:23)
[2023-12-05] MEDS: VANCOMYCIN HCL 1000MG/20ML VIAL ONE (11:23)
[2023-12-05] MEDS: LIDOCAINE 1% LOCAL 20 ML VIAL ONE (11:23)
[2023-12-05] MEDS: BUPIVACAINE 0.25% PF 30 ML VIAL ONE (11:23)
[2023-12-05] MEDS: ceFAZolin 330 MG/ML 1 GM VIAL ONE (11:24)
[2023-12-05] MEDS: fentaNYL citrate PF 100 MCG/2 ML VIAL ONE (12:34)
[2023-12-05] MEDS: MIDAZOLAM HCL 5 MG/ML 1 ML VIAL ONE (12:35)
--- NOTE | 2023-12-05 12:47 | Electrophysiology Report ---
Date of Service December 05, 2023 Electrophysiology Procedure Electrophysiology Procedure Report procedure performed: Addition of coronary sinus pacing lead and pulse generator change for biventricular ICD Staff sanitation superintendent: James Beltre MD Indication: The patient is a 73-year-old gentleman with a history of an ischemic cardiomyopathy. He had previously undergone implantation of a biventricular ICD employing a left bundle pacing lead. However, he did not have improvement in overall LV function and was advised to consider a repeat procedure for placement of a coronary sinus lead as an alternative for resynchronization. Procedure in detail the patient was informed the risks benefits and alternatives to the intended procedure. He understood and wished to proceed. He was taken to the electrophysiology suite in a fasting state. Conscious sedation was administered per protocol the patient was monitored electrocardiographically throughout today's procedure. Preoperative antibiotic was administered. The left upper pectoral areas prepped and draped in usual sterile fashion. This area was anesthetized using subcutaneous menstruation of a lidocaine and Marcaine solution. An incision was made at the site of the previously implanted device and carried down to the previously implanted device using a plasma blade. PlasmaBlade was also employed for dissection as well as for hemostasis. The previously implanted device and leads were then freed from the surrounding scar tissue. A partial capsulotomy was performed. limited left axillary venography had been performed in order to confirm patency of the left subclavian system. The left axillary vein was subsequently accessed using modified Seldinger technique under fluoroscopic guidance. A sheath was placed over guidewire at this site and used facilitate passage of a guiding catheter for engagement of the coronary sinus. Once engages coronary sinus venography was performed in order to identify a suitable target vessel. Once identified standard guidewire techniques were employed in order to deliver the pacing lead to the target vessel. Adequate sensing threshold parameters as well as the absence of diaphragmatic stimulation at high-output were confirmed prior to removal of the guiding catheter. Proximal portion lead was then sutured to prepectoralis fascia using nonabsorbable suture. The device pocket was irrigated with an antibiotic solution. The leads were then attached to a new device. The previously placed left bundle pacing lead was capped. The leads and device were then placed back in the pocket inside of an antibiotic impregnated envelope. The pocket was subsequently closed in 3 layers of absorbable suture. Steri- Strips and sterile dressing were applied. The device was tested noninvasively prior conclusion the procedure. The patient tolerated procedure well. There were no immediate complications. Equipment used explanted pulse generator: Customer Retention Representative [employer]. Model number DT MA 1 D4 serial number [id number] New pulse generator: Customer Retention Representative [employer]. Model number [id number] serial number [id number] Retained right atrial lead: Customer Retention Representative [employer]. Model 5076 serial number [id number] Retained right ventricular lead: Customer Retention Representative [employer]onic model 6. 935 mm serial number [id number] Retained left bundle pacing lead ( capped) pickers material handlers [employer]. Model number 3830 serial number [id number] New coronary sinus lead: Customer Retention Representative [employer]onic model 4298 serial number [id number] measured data right atrial lead: P-waves measured 1.4 mV. Pacing threshold was 1 volts at 0.4 milliseconds with a pacing impedance of 361 Ohms Right ventricular lead: R-waves measured 14.9 mV. Pacing threshold was 1 volts at 0.4 milliseconds with a pacing impedance of 494 Ohms Coronary sinus lead: Pacing threshold in the LV 1 to RV coil configuration was 0.5 volts at 0.4 milliseconds with a pacing impedance of 494 Ohms impression: Successful placement of coronary sinus lead Successful pulse generator change for biventricular ICD Capped and abandoned left bundle pacing lead [facility] Electrophysiology codes Pacing Procedure 1: Pacin BiV electrode w/Pacer / ICD implant, add on code ICD Procedure 1: ICD: 35002 Multi ICD replacement PG Moderate Sedation Codes Moderate Sedation Codes Procedure 1: Sedation/Anesthesia: 14421 Mod Sedation by the same physician;Init15 Min Child Age 5 & Up Procedure 2: Sedation/Anesthesia: 81717 Mod Sedation by the same physician; Ea [id number] Minutes
--- NOTE | 2023-12-05 12:47 | Post Anesthesia Assessment ---
Date of Service December 05, 2023 Post Sedation Assessment Vital Signs Temp Pulse Resp BP Pulse Ox O2 Del Method 12/05/23 10:20 36.7 C 75 14 115/46 L 96 Room Air Recovery Score Activity: Moves 4 extremities Respiration: Deep Breath/Cough Circulation: +/-20% PreAnes Value Consciousness: Fully Awake Oxygen Saturation: O2 needed for >90% Discharge Sedation Level of Care: Fast Track Phase II Post Sedation Plan On clinical assessment, the patient appears to have tolerated the sedation without complications. Patient is recovering as anticipated. Patient will continue to be monitored by nursing and may be discharged when sedation discharge criteria are met per below protocol. Upon Completions of procedure up to 15 minutes continue every 5 minute vital signs and the P.A.R. score; then discharge to a Phase I or Fast Track to Phase II per the following guidelines: * Discharge Patient to appropriate Phase II area if PAR is 8 or greater or return to pre- procedure baseline. The post - procedure orders will be as directed. * If PAR score is less than 8 or not return to pre-procedure baseline then patient will follow Phase I monitoring till PAR is reached for Phase II. The Phase I may be done in procedure room or may call to secure a Phase I area. * If naloxone or flumazenil are used for reversal, hold in Phase I for continued monitoring from when last reversal dose was given for a minimum of 60 minutes or longer pending the nurse and/or physician discretion of patient condition before discharge to Phase II. Please call the Sedation Physician to re-evaluate and complete post-note for discharge to Phase II area. Do NOT discharge from procedure sedation or Phase 1 until post- sedation evaluation note is complete by procedure /sedation MD Sedation Discharge Instructions to be given to the patient at discharge to home.
[2023-12-05] MEDS: oxyCODONE HCL IR 5 MG TAB (IMMEDIATE RELEASE) PO PRN (14:53)
[2023-12-05] MEDS: ACETAMINOPHEN 325 MG TAB PO PRN (17:21)
--- NOTE | 2023-12-05 17:38 | XRay Report ---
TWO VIEW CHEST CLINICAL HISTORY: Post pacemaker implantation. FINDINGS: AP upright and lateral chest radiographs are compared to study dated 03/26/2023 and correlat ed with chest CT dated 07/18/2023. The patient is status post midline sternotomy. A 3-lead cardiac AICD has been implanted. Leads project over the right atrial appendage, the right ventricle, and the carol nary sinus. The heart is enlarged noting atherosclerotic calcification of the thoracic aorta. The pul monary vasculature is none congestive. Emphysema and chronic interstitial thickening is similar to pr evious. The lungs and pleural spaces are clear. There is no pneumothorax. The skeletal structures are osteopenic. The bony thorax appears intact. IMPRESSION: 1. A 3-lead cardiac AICD has been implanted as above. No pneumothorax is seen post procedure. 2. Cardiothymic and emphysema without radiographic evidence of congestive failure. 3. No airspace consolidation or pleural effusion is identified. ACT 112: Negative or not required by law. Electronically signed by: Jaylen Reeder M.D. 12/05/2023 5:36 PM
[2023-12-05] MEDS: diphenhydrAMINE Capsule 25 MG CAP PO ONE (18:41)
[2023-12-05] MEDS: VALSARTAN/SACUBITRIL 26/24MG TAB PO SCH (19:38)
[2023-12-05] MEDS: ceFAZolin 1000MG 1,000 MG/7.5 ML SYR IV ONE (20:09)
[2023-12-05] MEDS: LORATADINE 10 MG TAB PO ONE (22:31)
[2023-12-06 03:03] VITALS: RESP 16
[2023-12-06 08:26] VITALS: BP 112/60; TEMP 98.2; O2SAT 93
[2023-12-06] MEDS: ATORVASTATIN 40 MG TAB PO SCH (08:29)
[2023-12-06] MEDS: ASPIRIN 81 MG CHEW PO SCH (08:29)
[2023-12-06] MEDS: CHOLECALCIFEROL 25 MCG (1000 UNITS) TAB PO SCH (08:29)
[2023-12-06] MEDS: SPIRONOLACTONE 25 MG TAB PO SCH (08:29)
[2023-12-06] MEDS: METOPROLOL SUCC 50MG EXT REL TAB PO SCH (08:29)
--- NOTE | 2023-12-06 08:42 | Discharge Summary ---
Date of Service December 06, 2023 Admission HPI Per Admitting Provider Patient with a history of a prior ICD implant for an ischemic CM. No response to LBB pacing and presents for placement of a CS lead. Principal Diagnosis Ischemic cardiomyopathy Discharge Exam On the day of discharge the patient was feeling well. The device implant site was without hematoma, erythema or drainage. Normal respiratory effort Discharge Data Allergies Allergy/AdvReac Type Severity Reaction Status Date / Time morphine Allergy Intermediate HIVES Verified 12/05/23 10:41 Procedures Performed Operation Date: 12/05/23 11:00 Actual Procedures s Venogram, Unilateral - James Beltre MD p ICD Insertion Single or Dual - James Beltre MD Ordered Studies 12/05/23 07:45 EP Lab Images for PACS ONCE Hospital Course (1) Ischemic cardiomyopathy: On the day of admission the patient underwent implantation of a coronary sinus lead with a change of his pulse generator to a new biventricular ICD. The previously implanted left bundle pacing lead was capped. A chest x-ray demonstrated stable lead position and device interrogation revealed good function on the new lead and the retained leads. The remainder of the hospitalization was uncomplicated. There were no changes in his medical therapy. Plan PLan implant of CS lead and generator change Total Time Total Time Spent Total Time Spent (In Minutes): 20 Discharge Plan Discharge Items Patient Disposition: Home - Self-Care Reason For Visit: Ischemic Cardiomyopathy Discharge Diagnosis: cardiomyopathy Activity: Per Instructions section Activity Comment: No lifting left arm above shoulder or behind neck for 6 weeks. Lifting: No more than 10 pounds Bathing: Keep incision dry Bathing Comment: Keep wound dry and steri-strip intact until f/u next week. Driving/Machine Use: No limitations Non-emergency contact: Geopolitics Teacher Call non-emergency contact if: you have any medication questions, your pain is concerning for you, you have a fever, your wound has increased redness, your wound has increased drainage and your wound pain has increased Follow-up/Referrals: James Beltre MD [Physician] - 12/11/23 11:00 am (Hospital follow up scheduled December 10 at 11:00 with [facility]) Ji Bird MD [Primary Care Provider] - 12/09/23 12:45 pm (Hospital follow up scheduled December 08 at 12:[address] Morris) Diet: Heart Healthy Addtl Attending Provider Instructions: none Pending Studies at Discharge: No Stand-Alone Forms: [facility] Sm[facility] Cessation Medications and DC Order Prescriptions: Continued multivitamin Tablet 1 tab PO QAM Qty: 0 ascorbic acid (vitamin C) [Vitamin C] 500 mg Tablet 500 mg PO QAM Qty: 0 aspirin 81 mg Tablet,Chewable 81 mg PO QAM Qty: 0 vitamin B complex Tablet 1 tab PO QAM Qty: 0 cholecalciferol (vitamin D3) [Vitamin D3] 25 mcg (1,000 unit) Tablet 25 mcg PO QAM 90 Days Qty: 90 Glucosamine Chondroitin 550-30-1 mg Capsule 1 cap PO BID Qty: 0 nitroglycerin [Nitrostat] 0.4 mg Tablet, Sublingual 0.4 mg sublingual Q5M PRN (Reason: chest pain) Qty: 60 0RF Rx Instructions: PER PT "D/T INSURANCE ISSUES, I HAVEN'T STARTED THIS MED YET". omega-3 fatty acids 1,000 mg Capsule 1,000 mg PO DAILY oxycodone 5 mg tablet 5 mg PO Q8H PRN (Reason: pain) Qty: 10 0RF Rx Instructions: severe pain furosemide 20 3XD spironolactone 25 mg Tablet 25 mg PO DAILY sacubitril-valsartan 24-26 mg Tablet 1 tab PO BID atorvastatin [Lipitor] 40 mg Tablet 40 mg PO DAILY ferrous sulfate 325 mg (65 mg iron) Tablet,Delayed Release (Dr/Ec) 325 mg PO BID Entresto 24-26 mg Tablet 1 tab PO BID metoprolol succinate 50 mg Capsule,Sprinkle,Er 24hr 50 mg PO DAILY Discharge Orders: Discharge Order (Routine); Ordered 12/06/23 Ordered By: James Beltre Admission Data Admit Date/Time: 12/05/23 11:19 Attending Provider: James Beltre Admit Provider: James Beltre Primary Care Provider: Ji Bird Other Interventions: Discharge Summary Assessment (RN) Last Done: 12/06/23 09:56 Coding Level of Care Code 41504 IN/OBS DISCH 30 MIN/LESS Diagnoses Ischemic cardiomyopathy I25.5
[2023-12-06 09:57] VITALS: PULSE 76
--- NOTE | 2023-12-06 23:57 | Electrocardiogram Report ---
Test Reason : Blood Pressure : */* mmHG Vent. Rate : 74 BPM Atrial Rate : 74 BPM P-R Int : 168 ms QRS Dur : 168 ms QT Int : 502 ms P-R-T Axes : 88 264 83 degrees QTcB Int : 557 ms AV dual-paced rhythm Biventricular pacemaker detected Abnormal ECG When compared with ECG of 16-Oct-2023 15:12, No significant change was found Confirmed by Fly Lundberg ([id number]) on 12/06/2023 11:57:21 PM Referred By: James Beltre Confirmed By: Fly Lundberg
== END 2023-12-06 10:15 | disposition home or self-care (01) ==
LOC: EP 09:54 → 2S 09:54
PROC: EPB.ICD (2023-12-05 11:00)